=== PATIENT | male | born 1960 | race Caucasian/White ===

== ENCOUNTER 2019-10-23 16:03 | Emergency (ER) | payer BC, SELFPAY ==
[2019-10-23 16:05] VITALS: BP 150/77; PULSE 85; RESP 14; TEMP 36.8; O2SAT 97; BMI 38.7
[2019-10-23 16:20] VITALS: BP 150/77; PULSE 85; RESP 14; TEMP 36.9; O2SAT 97; BMI 39.1
--- NOTE | 2019-10-23 16:20 | XR_ITS ---
PROCEDURE: XR FOOT LT MIN 3V CLINICAL INDICATION: fall COMPARISON: No exams were available for comparison Only 2 films were obtained AP and oblique FINDINGS: No fracture or dislocation. No lytic or blastic change. There is normal mineralization. There is minimal cortical irregularity or spurring of the navicular bone. The joint spaces are well-preserved. No significant degenerative/arthritic changes. No erosive changes evident. Other findings:None. IMPRESSION: No acute findings. Dictated by: Dr. Daniel Bullard MD 10/23/2019 16:59 Dr. Daniel Bullard MD in [place] 10/23/2019 16:59
--- NOTE | 2019-10-23 16:21 | XR_ITS ---
PROCEDURE: XR RIBS LT MIN 3V W CXR1V CLINICAL INDICATION: fall left chest wall pain COMPARISON: No exams were available for comparison FINDINGS: The lung mack are well-expanded and appear clear of infiltrate. All of the left ribs 1 through 12 are visualized and appear intact with no evidence of recent or old fracture. There is no pneumothorax. Cardiac size is normal and there is no pulmonary congestion. IMPRESSION: Negative PA chest and left ribs Dictated by: Dr. Daniel Bullard MD 10/23/2019 16:57 Dr. Daniel Bullard MD in [place] 10/23/2019 16:57
--- NOTE | 2019-10-23 16:28 | HMH.EDUTC ---
[facility] [place] [facility] Disposition Clinical Impression: Contusion of rib on left side Qualifiers: Encounter type: initial encounter Qualified Code(s): S20.212A - Contusion of left front wall of thorax, initial encounter Injury of great toe Qualifiers: Encounter type: initial encounter Laterality: left Qualified Code(s): S99.922A - Unspecified injury of left foot, initial encounter Disposition: Home, Self-Care Condition on Discharge: Good Instructions: DI for Rib Contusion, DI for Toe Sprain Additional Instructions: *Ibuprofen darlene 6 hours with meal as needed for pain/inflammation *Remember you had a Toradol shot in the clinic today, which is similar to Motrin *Not additional anti-inflammatory like motrin, aleve, advil with the above amount of ibuprofen. You can still take Tylenol every 4 hours as needed if you need something else for pain *Ice 20 minutes every 2 hours for the first 48 hours after the initial injury followed by moist heat every 20 minutes 3-4 times a day to affected area *Muscle relaxer every 8 hours as needed for muscle spasms but remember, it WILL cause drowsiness You cannot take it and drive, operate machinery or care for small children. *Keep this area active, no movement leads to more stiffness, However take it easy and avoid heavy lifting pushing or pulling *Follow up with you family doctor if no improvement for further treatment Soak foot in warm water and epson salt then apply Bacitracin around nail Follow up with Dr Rosario if no improvement or any worsening of symptoms or pressure feeling in toe Follow up with Family Doctor if no improvement or any worsening of symptoms Return if needed Straight to ER if life threatening symptoms shortness of breath, chest pain etc Prescriptions: Bacitracin 1 each TP TID 10 Days #30 packet Prescription Printed Referrals: Sammy Biggs APRN [Primary Care Provider] - As needed Jessica Rosario DPM [Staff Physician] - Time of Disposition: 17:16 Medical Decision Making - Celio Inquiry Pt receiving controlled substance: No Celio was queried for this patient: No Vital Signs: 10/23/19 16:05 10/23/19 16:20 Temperature 98.2 F 98.4 F Temperature Source Oral Oral Pulse Rate [Radial] 85 Pulse Rate [Right Radial] 85 Respiratory Rate 14 14 Blood Pressure [Right Arm] 150/77 H 150/77 H Blood Pressure Mean [Right Arm] 101 101 Blood Pressure Source [Right Arm] Automatic Cuff Automatic Cuff Blood Pressure Position [Right Arm] Sitting Sitting 02 Sat by Pulse Oximetry 97 97 Oxygen Delivery Method Room Air Room Air [facility] HPI - General Stated complaint: AO [id number]@0500 fell injured l side&foot Time Seen by Provider: 10/23/19 16:28 Mode of Arrival: Ambulatory Source of Information: Patient Limitations: No Limitations Description of Symptoms (Recalled from Triage Doc. by RN): Fell up one step and hurt his left foot and left rib cage. HEENT Symptoms (Recalled from RN notes): No Resp Symptoms (Recalled from RN notes): No Skin Symptoms (Recalled from RN notes): No MS Symptoms (Recalled from RN notes): Yes Functional Status (Recalled from RN notes): wnl - History of Present Illness Provider Complaint: Patient states that he was walking up the steps earlier this morning when he didnt raise his foot high enough and hit it against the step and fell States that as he was falling he thought he was going to hit his face so he twisted his body and landed on his left side Statse that ever since he has been having pain in his left rib area that has continued to get worse States that this evening he feels more sore so he come in - Related Data Previous Rx's Medication Instructions Recorded Bacitracin 1 each TP TID 10 Days #30 packet 10/23/19 Allergies Allergy/AdvReac Type Severity Reaction Status Date / Time No Known Allergies Allergy Verified 10/23/19 16:24 - Worker's Comp Is this a Worker's Comp case?: No [facility] History - Hepatitis A Screen Drug use history?: No High risk sexua
[2019-10-23 17:20] VITALS: BP 150/77; PULSE 85; RESP 14; TEMP 36.9; O2SAT 97
== END 2019-10-23 17:21 | disposition home or self-care (01) ==
PROVIDERS: Emergency Provider Nurse Practitioner; PCP Nurse Practitioner
DX: S20.212A Contusion of left front wall of thorax, initial encounter (principal); S99.922A Unspecified injury of left foot, initial encounter; W10.9XXA Fall (on) (from) unspecified stairs and steps, initial encounter; Y92.019 Unspecified place in single-family (private) house as the place of occurrence of the external cause
CPT/HCPCS: 71101; 73630; 99201

== ENCOUNTER 2022-12-04 12:00 | Emergency (ER) | payer OTHER, SELFPAY ==
--- NOTE | 2022-12-04 11:59 | ECG_ITS ---
APPROVED REPORT Exam: Resting ECG HR:78 bpm ECG Measurements Heart Rate 78 AXES NC 166 P 59 QRSd 87 QRS -12 QT 360 T 24 QTc 393 Conclusion SINUS RHYTHM SEPTAL MYOCARDIAL INFARCTION , PROBABLY OLD [40+ ms Q WAVE IN V1/V2] INFERIOR MYOCARDIAL INFARCTION , PROBABLY OLD [40+ ms Q WAVE AND/OR ST/T ABNORMALITY IN II/aVF] ABNORMAL ECG UNCONFIRMED REPORT Electronically signed by : Cem Uribe MD 12/05/2022 14:29:49
[2022-12-04 12:01] VITALS: BP 174/90; PULSE 82; RESP 18; TEMP 36.7; O2SAT 98; BMI 36.9
[2022-12-04 12:05] VITALS: BMI 36.9
--- NOTE | 2022-12-04 12:05 | XR_ITS ---
FINAL REPORT TECHNIQUE: Single view chest CLINICAL HISTORY: chest pain, SOA FINDINGS: A single view of the chest was obtained. The heart and mediastinum are within normal limits. The lungs are clear. There is no pneumothorax. Osseous structures are unremarkable. IMPRESSION: No acute cardiopulmonary process. Reviewed, Interpreted and Dictated by Scott Felix III, MD Transcribed by Seema Tran Authenticated and [facility]
[2022-12-04 12:20] LABS: Chloride 101 mmol/L (98-107); Potassium 3.9 mmoL/L (3.5-5.1); Sodium 137 mmol/L (136-145)
[2022-12-04 12:21] LABS: Basophils % 0.4 % (0.1-2.0); Eosinophils # 0.2 K/mm3 (0.0-0.4); Hematocrit 47.5 % (42.0-52.0); Hemoglobin 16.7 g/dL (14.1-18.0); Lymphocytes # 2.8 K/mm3 (0.7-4.5); Lymphocytes % 33.1 % (10-50); Mean Corpuscular HGB Conc 35.1 g/dL (31.8-35.4); Mean Corpuscular Hemoglobin 32.6 pg (27.0-31.2); Mean Corpuscular Volume 92.9 fl (80-94); Mean Platelet Volume 8.2 fl (7.4-10.4); Monocytes # 0.4 K/mm3 (0.1-1.0); Neutrophils # 5.1 K/mm3 (1.8-7.8); Neutrophils % 59.4 % (37.0-80.0); Platelet Count 238 K/mm3 (142-424); Red Blood Count 5.12 M/mm3 (4.60-6.20); Red Cell Distribution Width 14.2 % (11.5-17.5); White Blood Count 8.6 K/mm3 (4.8-10.8)
[2022-12-04 12:23] LABS: Alanine Aminotransferase 38 U/L (12-78); Albumin Level 4.5 g/dl (3.5-5.0); Albumin/Globulin Ratio 1.5 (1.1-1.8); Alkaline Phosphatase 113 U/L (38-126); Anion Gap 12.9 mEq/L (5-15); Aspartate Amino Transferase 33 U/L (17-59); Bilirubin,Total 0.3 mg/dl (0.2-1.3); Blood Urea Nitrogen 23 mg/dl (9-20); Calcium 8.8 mg/dl (8.4-10.2); Carbon Dioxide 27 mmol/L (22.0-30.0); Creatinine Clearance Estimated 123 mL/min (50-200); Estimated Glomerular Filt Rate 98 ml/min (>60); GFR (African American) 119 ML/MIN (>60); Globulin 3.1 g/dL (1.3-3.2); Glucose 174 mg/dl (74-100); Total Protein,Serum 7.6 g/dl (6.3-8.2)
--- NOTE | 2022-12-04 12:23 | CT_ITS ---
FINAL REPORT CLINICAL HISTORY: h/o PTE, left pleuritic cp FINDINGS: Thin section axial CT images of the chest were obtained with contrast. 3D reformatted images were also obtained. This study was performed with techniques to keep radiation doses as low as reasonably achievable (ALARA). Individualized dose reduction techniques using automated exposure control or adjustment of mA and/or kV according to the patient''s size were employed. There is no evidence of pulmonary embolism. There is no evidence of thoracic aortic aneurysm or dissection. There is no evidence of mediastinal or hilar mass or adenopathy. There is no evidence of pulmonary mass or nodule. No localized inflammatory process is seen within the lungs. Limited images of the upper abdomen are unremarkable. IMPRESSION: No evidence of pulmonary embolism. No mass or localized inflammatory process. Reviewed, Interpreted and Dictated by Scott Felix III, MD Transcribed by Paradise Yin Authenticated and . [facility]
--- NOTE | 2022-12-04 12:24 | HMH.EDGENADL ---
Discharge Plan Disposition Patient Disposition: Home, Self-Care Prescriptions Prescriptions: No Action peg 3350-electrolytes [GaviLyte-C] 240-22.72-6.72 -5.84 gram recon soln 240 ml PO Q10M Qty: 240 0RF Rx Instructions: until fecal effluent is clear- follow mailed instructions GaviLyte-C 240-22.72-6.72 -5.84 gram recon soln 240 ml PO Q10M Qty: 240 0RF Rx Instructions: until fecal effluent is clear bacitracin 1 EACH packet 1 each TP TID 10 Days Qty: 30 0RF Activity Restrictions/Add. Instructions Additional Instructions/Restrictions: No evidence of any acute cardiopulmonary emergency specifically no evidence of a blood clot in your lungs malignancy etc. Please help the primary care doctor return to the emergency department any worsening symptoms. Clinical Impressions Clinical Impression: Chest pain, pleuritic Discharge ED Provider: Leroy Kothari General Adult HPI General Chief complaint: Chest Pain Stated complaint: chest pain Time Seen by Provider: 12/04/22 12:17 Mode of Arrival: Ambulatory Source of Information: Patient Limitations: No Limitations Description of Symptoms (Recalled from ER Triage Doc. by RN): Pt reports became SOA today after work, pt reports painful under L arm and down L side. Pt reports tender to the touch. Pt reports pain is chest with inspiration. Pt reports hx of PE, on xarelto. History of Present Illness HPI narrative: Patient is a 62-year-old male with a history of a pulmonary embolism on Xarelto presenting today with left-sided pleuritic chest pain that he says is very similar to when he was first diagnosed with a PE. Denies any new or different lower extremity swelling. Denies any cough fevers or chills. Denies any rash that he is aware of. This has been ongoing for the last week but suddenly worsened today. No hemoptysis. Has been compliant with his Xarelto has not missed any doses. Also complains of mild dyspnea associate with this. Related Data Previous Rx's Medication Instructions Recorded bacitracin 500 unit/gram topical 1 each TP TID 10 days #30 packets 10/23/19 packet peg 3350 240 gram-electrolytes 240 ml PO Q10M #240 mL 12/04/21 22.72 gram-6.72 g-5.84 g powdr for soln (Gavilyte-C) peg 3350 240 gram-electrolytes 240 ml PO Q10M #240 mL 02/05/22 22.72 gram-6.72 g-5.84 g powdr for soln (Gavilyte-C) Allergies Allergy/AdvReac Type Severity Reaction Status Date / Time No Known Allergies Allergy Verified 10/23/19 16:24 PFSH PFS Disclaimer: The information contained in this section may have been updated after the patient was seen, as this information can be updated by other users. Medical History Deep vein thrombosis (DVT) Diabetes mellitus, type 2 Hyperlipidemia Hypertension Surgical History History of surgical removal of nipple Family History Other Family history of arteriosclerotic cardiovascular disease Family history of diabetes mellitus type II Family history of hypertension Social History Smoking Status: Never smoker alcohol intake: never substance use type: denies use current occupational status: employed Travel in the last 8 weeks: None special priscila needs: No agree to transfusion: No do you feel safe at home: Yes victim of physical abuse: No victim of emotional abuse: No victim of sexual abuse: No would you like helpful sources: No ROS Obtained: Yes All systems reviewed & no additional complaints except as documented Physical Exam General General appearance: alert Chest Chest inspection: Present tenderness (There is left-sided tenderness on his chest wall there is no evidence of any rash specifically no evidence of shingles) Respiratory Respiratory exam: P
[2022-12-04 12:30] VITALS: BP 151/82; PULSE 72; RESP 18; O2SAT 96
[2022-12-04 12:36] LABS: Troponin I < 0.01 ng/ml (0.00-0.034)
[2022-12-04 12:46] LABS: Lipase 54 U/L (23-300)
--- NOTE | 2022-12-04 12:48 | PC.NURSE ---
Assumed patient care at this time.
--- NOTE | 2022-12-04 12:53 | PC.NURSE ---
Pt to CT
[2022-12-04 13:30] VITALS: BP 137/82; PULSE 62; RESP 18; O2SAT 98
[2022-12-04 13:46] LABS: Microscopic, Urine URINE MICROSCOPIC (MICROSCOPIC)
--- NOTE | 2022-12-04 13:47 | PC.NURSE ---
Rounded on patient and updated on plan of care; patient stated he felt like his blood sugar was dropping. OK for PO. [place] juice and peanut butter cracker provided to patient as well as warm blanket. Lights dimmed nothing else needed at this time. Call light within reach of patient
[2022-12-04 13:59] LABS: Appearance,Urine CLEAR (Clear); Bilirubin,Urine Negative (Negative); Blood, Urine TRACE-I (Negative); Color,Urine YELLOW (Yellow); Glucose,Urine (UA) 3+ (Negative); Ketones,Urine Negative (Negative); Leukocyte Esterase,Urine Negative (Negative); Nitrate,Urine Negative (Negative); Protein,Urine Negative (Negative); Urobilinogen,Urine 0.2 EU/dl (0.2)
[2022-12-04 14:00] VITALS: BP 157/85; PULSE 64; O2SAT 95
[2022-12-04 14:13] LABS: Squamous Epithelial Cell,Urine Occasional #/hpf (0-5)
[2022-12-04 14:17] VITALS: BP 157/85; PULSE 66; RESP 18; TEMP 36.6; O2SAT 99
== END 2022-12-04 14:20 | disposition home or self-care (01) ==
PROVIDERS: Emergency Provider Student in an Organized Health Care Education/Training Program; PCP Family Medicine
DX: R07.81 Pleurodynia (principal); E11.65 Type 2 diabetes mellitus with hyperglycemia; I10 Essential (primary) hypertension; E78.5 Hyperlipidemia, unspecified; Z86.718 Personal history of other venous thrombosis and embolism; Z79.01 Long term (current) use of anticoagulants
CPT/HCPCS: 71045; 71275; 80053; 81001; 83690; 84484; 85025; 93005; 96361; 96374; 99285; Q9967

== ENCOUNTER 2024-04-02 10:52 | Emergency (ER) | payer OTHER, SELFPAY ==
[2024-04-02 10:54] VITALS: BP 136/87; PULSE 87; RESP 19; TEMP 36.6; O2SAT 99; BMI 30.4
[2024-04-02 10:56] VITALS: BP 136/87; PULSE 87; O2SAT 99
[2024-04-02 11:00] VITALS: BP 120/83; PULSE 79; O2SAT 100
--- NOTE | 2024-04-02 11:07 | PC.NURSE ---
I rounded on the pt. no needs voiced. no new complaints. call scott in reach.
--- NOTE | 2024-04-02 11:14 | XR_ITS ---
PROCEDURE INFORMATION: Exam: XR Right Hand Exam date and time: 04/02/2024 11:18 AM Age: 63 years old Clinical indication: Swelling; Hand; Right; Additional info: Right fifth digit swelling TECHNIQUE: Imaging protocol: Radiologic exam of the right hand. Views: 3 or more views. Total images: 3 COMPARISON: No relevant prior studies available. FINDINGS: Bones/joints: Hypertrophic spurring noted and joint space narrowing along the proximal interphalangeal joint of the 5th finger with overlying soft tissue swelling. No evidence of acute fracture or dislocation. Soft tissues: No soft tissue swelling IMPRESSION: 1. Hypertrophic spurring noted and joint space narrowing along the proximal interphalangeal joint of the 5th finger with overlying soft tissue swelling. 2. No evidence of acute fracture or dislocation.
--- NOTE | 2024-04-02 11:15 | HMH.EDGENADL ---
Discharge Plan Disposition Patient Disposition: Home, Self-Care Prescriptions Prescriptions: New cephalexin 500 mg capsule 500 mg PO QID 10 Days Qty: 40 0RF No Action peg 3350-electrolytes [GaviLyte-C] 240-22.72-6.72 -5.84 gram recon soln 240 ml PO Q10M Qty: 240 0RF Rx Instructions: until fecal effluent is clear- follow mailed instructions GaviLyte-C 240-22.72-6.72 -5.84 gram recon soln 240 ml PO Q10M Qty: 240 0RF Rx Instructions: until fecal effluent is clear bacitracin 1 EACH packet 1 each TP TID 10 Days Qty: 30 0RF Referrals Follow up/Referrals: Provider,Referral, MD [Primary Care Provider] - See instructions Activity Restrictions/Add. Instructions Additional Instructions/Restrictions: As discussed there is no evidence of flexor tenosynovitis nor felon/abscess within the finger itself. Please follow-up with your primary care doctor in 48 to 72 hours if you are not improving or return with any significant worsening. Clinical Impressions Clinical Impression: Cellulitis of left little finger Print Language Print Language: Congolese Discharge ED Provider: Leroy Kothari General Adult HPI General Chief complaint: PAIN Stated complaint: right pinky pos broke Time Seen by Provider: 04/02/24 11:10 Mode of Arrival: Ambulatory Source of Information: Patient Limitations: No Limitations Description of Symptoms (Recalled from ER Triage Doc. by RN): pt presents to ED with c/o right hand fourth digit. pt reports he has no known injury that he knows about. pt reports for the past 5-6 days. pt reports pain and swelling have moved into his hand. History of Present Illness HPI narrative: Patient is a 63-year-old with a history of diabetes brings today with right fifth digit hand swelling and pain and redness. Is been ongoing for the last 5 days. No injuries that he is aware of no skin breaks in the past. No fevers or chills or other systemic symptoms. Related Data Previous Rx's ?Medication ?Instructions ?Recorded bacitracin 500 unit/gram topical 1 each TP TID 10 days #30 packets 10/23/19 packet peg 3350 240 gram-electrolytes 240 ml PO Q10M #240 mL 12/04/21 22.72 gram-6.72 g-5.84 g powdr for soln (Gavilyte-C) peg 3350 240 gram-electrolytes 240 ml PO Q10M #240 mL 02/05/22 22.72 gram-6.72 g-5.84 g powdr for soln (Gavilyte-C) cephalexin 500 mg capsule 500 mg PO QID 10 days #40 caps 04/02/24 Allergies Allergy/AdvReac Type Severity Reaction Status Date / Time No Known Allergies Allergy Verified 10/23/19 16:24 [facility] Disclaimer: The information contained in this section may have been updated after the patient was seen, as this information can be updated by other users. Medical History Deep vein thrombosis (DVT) Diabetes mellitus, type 2 Hyperlipidemia Hypertension Surgical History History of surgical removal of nipple Family History Other Family history of arteriosclerotic cardiovascular disease Family history of diabetes mellitus type II Family history of hypertension Social History Smoking Status: Never smoker alcohol intake: never substance use type: denies use current occupational status: employed Travel in the last 8 weeks: None special priscila needs: No agree to transfusion: No do you feel safe at home: Yes victim of physical abuse: No victim of emotional abuse: No victim of sexual abuse: No would you like helpful sources: No Have you lived/traveled outside [place] in past 30 days?: No Contact w/someone who lives/traveled outside US past 30 days?: No Exposure to someone with infectious disease in past 14 days?: No Do you have a fever (greater than 100.4 F or 38 C)?: No Have you tested positive for COVID-19: No Exposed to someone with COVID-19 in past 14 days?: No Do you have a sore throat?: No Do you have a cough?: No Do you have any weakness?: No Do you have any diarrhea?: No Are you experiencing any unusual bleeding?: No Do you have any muscle aches/pain?: No Do you have any abdominal pain?: No Are you experiencing loss of taste or smell?: No ROS Obtained: Yes All systems reviewed & no additional complaints except as documented Physical Exam General General appearance: alert Respiratory Respiratory exam: Present normal lung sounds bilaterally Cardiovascular Cardiovascular exam: Present regular rate Extremities Exam Extremities exam: Present other (Volar aspect of the right fifth digit there is tenderness and swelling over the volar fat pad extending into the flexor surface down to the hand finger is not diffusely swollen no significant pain with active extension no sausagelike digit) Neurological Exam Neurological exam: Present alert and oriented X3 Medical Decision Making Medical Records Screening: Per USPSTF and CDC recommendations, given the prevalence of disease in our region, it is our hospital?s policy to screen for HIV and viral Hepatitis for all patients aged 18 and over and those with ongoing risk factors. Celio Inquiry Pt receiving controlled substance: No Vital Signs: 04/02/24 10:54 04/02/24 10:56 04/02/24 11:00 Temperature 97.9 F Temperature Source Oral Pulse Rate 87 79 Pulse Rate [Left Radial] 87 Respiratory Rate 19 Blood Pressure 136/87 120/83 Blood Pressure [Right Arm] 136/87 Blood Pressure Mean 102 95 Blood Pressure Mean [Right Arm] 103 02 Sat by Pulse Oximetry 99 99 100 Oxygen Delivery Method Room Air Room Air Room Air 04/02/24 11:30 Temperature Temperature Source Pulse Rate 79 Pulse Rate [Left Radial] Respiratory Rate Blood Pressure 113/78 Blood Pressure [Right Arm] Blood Pressure Mean 88 Blood Pressure Mean [Right Arm] 02 Sat by Pulse Oximetry 99 Oxygen Delivery Method Room Air Orders (Tests/Meds): ORDERS Category Date Time Status Hand XR right minimum 3 views [XR hand RT min 3V] Stat Exams 04/02/24 11:14 Completed POCUS Point of Care (ER Only) Stat Exams 04/02/24 11:14 Ordered HIV Combo Stat Lab 04/02/24 11:03 Ordered Hepatitis C Ab Qual. W/ RFX Stat Lab 04/02/24 11:03 Ordered Medical Decision Narrative: 63-year-old with above history and physical has had 5 to 6 days of nontraumatic pain and swelling redness and tenderness over the volar aspect of the right fifth digit. Will do a bedside ultrasound to rule out obvious abscess. It is possible that the patient has early flexor tenosynovitis but unlikely. Patient has 0 out of 4 [place] signs no indication for transfer for hand surgery at the moment. Likely will start oral antibiotics depending on what I see on x-ray on ultrasound. Limited ultrasound of the finger did not show any evidence of flexor tenosynovitis or localize drainable fluid collection. X-ray was performed I personally interpreted which shows no evidence of fracture dislocation or advanced osteomyelitis. Therefore we will treat this as nonspecific cellulitis with Keflex. Return precautions emphasized patient discharged in stable condition. Procedures Miscellaneous Procedure Procedure Performed: Limited soft tissue ultrasound Indication: Soft tissue swelling and tenderness over the finger Identified structures: Location: Right fifth digit Findings: No evidence of felon fluid collection within the flexor tendon sheath however there is evidence of soft tissue cobblestoning and cellulitis Impression: Cellulitis of the finger on the volar aspect without any evidence of localized drainable fluid collection or flexor tenosynovitis radiographically Images were saved to permanent archive The study was technically adequate Soft Tissue CPT Codes: CPT Neck: 56115-92 CPT Upper extremity: 34005-53 CPT Axilla: 68971-89 CPT Chest wall: 83660-04 CPT Breast: 46881-62-RJ/LT (complete), 98840-34-RD/LT (limited), CPT Upper Back: 83851-15 CPT Lower Back: 75235-23 CPT Abdominal Wall: 21090-54 CPT Pelvic Wall: 09471-25 CPT Lower Extremity: 96664-65 CPT Other Soft Tissue: 80054-74 This study was performed by me, and I personally interpreted all images/videos. Based on my clinical judgement, these images were adequate and did not necessitate further imaging. Critical Care Critical Care Time Critical Care Time: No
[2024-04-02 11:30] VITALS: BP 113/78; PULSE 79; O2SAT 99
[2024-04-02 12:19] VITALS: BP 113/78; PULSE 79; RESP 18; TEMP 36.6; O2SAT 99
== END 2024-04-02 12:20 | disposition home or self-care (01) ==
PROVIDERS: Emergency Provider Student in an Organized Health Care Education/Training Program
DX: L03.011 Cellulitis of right finger (principal); M79.641 Pain in right hand; M79.644 Pain in right finger(s)
CPT/HCPCS: 73130; 99283

== ENCOUNTER 2024-10-02 15:52 | Emergency (ER) | payer OTHER, SELFPAY ==
--- OUTSIDE RECORDS SUMMARY | 2024-08-29 14:30 | XMS_ITS | Encounter Summary ---
Author Organization [facility] Address [address] [place] [address] Care Team Providers Care Helicopter Repairer Name Role Phone Mohit Chávez DO Primary Care Provider [phone] Reason for Referral * Other Medical (Routine) - Pending Review Specialty Diagnoses / Procedures Referred By Contac t Referred To Contact Diagnoses Primary osteoarthritis of left knee Primary osteoarthritis of right knee Procedures Injection - Large Joint: bilateral knee Vasu Yanez PA [address] [place] [address] Phone: tel: fax: Referral ID Status Reason Start Date Expiration Date V isits Requested Visits Authorized [id number] Pending Review 08/29/2024 02/28/2026 1 1 Reason for Visit * Reason Comments Injections Injections Encounter Details Date Type Department Care Team (Latest Contact Info) Description 08/29/2024 2:30 PM EDT Office Visit Medical Office Building [facility] [address], [address] [place] [address] Vasu Yanez PA [address] [place] [address] Primary osteoarthritis of left knee (Primary Dx); Primary osteoarthritis of right knee Social History Tobacco Use Types Packs/Day Years Used Date Smoking Tobacco: Never Smokeless Tobacco: Never Tobacco Cessation:Counseling Given: Not Answered Alcohol Use Standard Drinks/Week Comments Never 0 (1 standard drink = 0.6 oz pur e alcohol) Sex and Gender Information Value Date Recorded Sex Assigned at Not on file Legal Sex Male 6:25 PM EDT Gender Identity Not on file Sexual Orientation Not on file documented as of this encounter Last Filed Vital Signs Vital Sign Reading Time Taken Comments Blood Pressure 124/78 08/29/2024 2:02 PM EDT Pulse 75 08/29/2024 2:02 PM EDT Temperature - - Respiratory Rate - - Oxygen Saturation 98% 08/29/2024 2:02 PM EDT Inhaled Oxygen Concentration - - Weight 99.1 kg (218 lb 7.6 oz) 08/29/2024 2:02 P M EDT Height 175.3 cm (5' 9 ) 08/29/2024 2:02 PM EDT Body Mass Index 32.26 08/29/2024 2:02 PM EDT documented in this encounter Miscellaneous Notes * Progress Notes - Vasu Yanez PA - 08/29/2024 2:30 PM EDTAssociated Order(s): Injection - Large Joint: bilateral knee Post-Procedure Diagnose(s): Primary osteoarthritis of left knee; Primary osteoarthritis of right knee Patient ID: Arun Ramon is a 64 y.o. male. No diagnosis found. The patient was scheduled for total knee arthroplasty but he has had to delay this secondary to a family medical issue. He requested corticosteroid injections bilateral knees this was provided under sterile conditions without complications injecting 2:2: 1 secondary to his diabetes. He will call and be scheduled for total knee arthroplasty when it fits into his schedule. Injection - Large Joint: bilateral knee Indications: pain Details: 22 G needle, anteromedial approach Medications (Right): 10 mg bupivacaine 0.5 %; 20 mg lidocaine 1 %; 40 mg Kenalog-40 40 MG/ML Medications (Left): 10 mg bupivacaine 0.5 %; 20 mg lidocaine 1 %; 40 mg Kenalog- 40 40 MG/ML Outcome: tolerated well, no immediate complications Procedure, treatment alternatives, risks and benefits explained, specific risks discussed (Risks include but are not limited to pain, bleeding, infection, failure to relieve symptoms). Consent was given by the patient. Immediately prior to procedure a time out was called to verify the correct patient, procedure, equipment, customer support advisor and site/side marked as required. Patient was prepped and draped in the usual sterile fashion. Procedure, treatment alternatives, risks and benefits explained, specific risks discussed (Risks include but are not limited to pain, bleeding, infection, failure to relieve symptoms). Consent was given by the patient. Immediately prior to procedure a time out was called to verify the correct patient, procedure, equipment, customer support advisor and site/side marked as required. Patient was prepped and draped in the usual sterile fashion. documented in this encounter Plan of Treatment Upcoming Encounters Date Type Department Care Team (Late st Contact Info) Description 11/25/2024 10:10 AM EDT Office Visit Medical Office Building [facility] [address] [facility] [address], [address] [place] [address] Vasu Yanez PA [address] [facility] [address] [place] [address] 03/22/2025 3:40 PM EST Office Visit [facility] Endocrinology [address] [place] [address] Delicia Miner, PERIANESTHESIA MANAGER [address] [facility] [address] [place] [address] documented as of this encounter Procedures Procedure Name Priority Date/Time Associated Diagnosis Comments TN ARTHROCENTESIS ASPIR&/INJ MAJOR JT/BURSA W/O US Routine 08/29/2024 2:30 PM EDT Primary osteoarthritis of left knee Primary osteoarthritis of right knee documented in this encounter Results * TN ARTHROCENTESIS ASPIR&/INJ MAJOR JT/BURSA W/O US (08/29/2024 2:30 PM EDT) Narrative Vasu Yanez PA - 08/29/2024 2:30 PM EDT Vasu Yanez PA 08/29/2024 2:33 PM Injection - Large Joint: bilateral knee Indications: pain Details: 22 G needle, anteromedial approach Medications (Right): 10 mg bupivacaine 0.5 %; 20 mg lidocaine 1 %; 40 mg Kenalog-40 40 MG/ML Medications (Left): 10 mg bupivacaine 0.5 %; 20 mg lidocaine 1 %; 40 mg Kenalog-40 40 MG/ML Outcome: tolerated well, no immediate complications Procedure, treatment alternatives, risks and benefits explained, specific risks discussed (Risks include but are not limited to pain, bleeding, infection, failure to relieve symptoms). Consent was given by the patient. Immediately prior to procedure a time out was called to verify the correct patient, procedure, equipment, customer support advisor and site/side marked as required. Patient was prepped and draped in the usual sterile fashion. Procedure, treatment alternatives, risks and benefits explained, specific risks discussed (Risks include but are not limited to pain, bleeding, infection, failure to relieve symptoms). Consent was given by the patient. Immediately prior to procedure a time out was called to verify the correct patient, procedure, equipment, customer support advisor and site/side marked as required. Patient was prepped and draped in the usual sterile fashion. Vasu [facility] IN CLINIC/BEDSIDE ORDERABLES Final Result documented in this encounter Visit Diagnoses Diagnosis Primary osteoarthritis of left knee- Primary Primary osteoarthritis of right knee documented in this encounter Administered Medications Inactive Administered Medications - up to 3 most recent administrations Medication Order MAR Action Action Date Dose Rate Site bupivacaine (Marcaine) 0.5 % injection 10 mg 10 mg, Injection, Once PRN Procedure, 1 dose, Starting on Thu08/29/24 at 1430, Until Thu08/29/24 at 1430, RoutineIndications:Primary osteoarthritis of left knee,Primary osteoarthritis of right knee Given 08/29/2024 2:30 PM EDT 10 mg bupivacaine (Marcaine) 0.5 % injection 10 mg 10 mg, Injection, Once PRN Procedure, 1 dose, Starting on Thu08/29/24 at 1430, Until Thu08/29/24 at 1430, RoutineIndications:Primary osteoarthritis of left knee,Primary osteoarthritis of right knee Given 08/29/2024 2:30 PM EDT 10 mg lidocaine (Xylocaine) 1 % injection 20 mg 20 mg, Intra-articular, Once PRN Procedure, 1 dose, Starting on Thu08/29/24 at 1430, Until Thu08/29/24 at 1430, RoutineIndications:Primary osteoarthritis of left knee,Primary osteoarthritis of right knee Given 08/29/2024 2:30 PM EDT 20 mg lidocaine (Xylocaine) 1 % injection 20 mg 20 mg, Intra-articular, Once PRN Procedure, 1 dose, Starting on Thu08/29/24 at 1430, Until Thu08/29/24 at 1430, RoutineIndications:Primary osteoarthritis of left knee,Primary osteoarthritis of right knee Given 08/29/2024 2:30 PM EDT 20 mg triamcinolone acetonide (Kenalog-40) injection 40 mg 40 mg, Intra-articular, Once PRN Procedure, 1 dose, Starting on Thu08/29/24 at 1430, Until Thu08/29/24 at 1430, RoutineIndications:Primary osteoarthritis of left knee,Primary osteoarthritis of right knee Given 08/29/2024 2:30 PM EDT 40 mg triamcinolone acetonide (Kenalog-40) injection 40 mg 40 mg, Intra-articular, Once PRN Procedure, 1 dose, Starting on Thu08/29/24 at 1430, Until Thu08/29/24 at 1430, RoutineIndications:Primary osteoarthritis of left knee,Primary osteoarthritis of right knee Given 08/29/2024 2:30 PM EDT 40 mg documented in this encounter Additional Health Concerns Assessment Noted Time A fall risk assessment has been complete d for the patient 08/29/2024 2:03 PM EDT A Body Mass Index follow-up plan has been documented for the patient 08/29/2024 2:33 PM EDT documented as of this encounter Care Teams Helicopter Repairer Relationship Specialty Start Date [place] [address] [place] [id number] PCP - General 06/06/24 documented as of this encounter
--- OUTSIDE RECORDS SUMMARY | 2024-09-19 15:40 | XMS_ITS | Encounter Summary ---
Author Organization [facility] Address [address] [place] [address] Care Team Providers Care Fence Supervisor Name Role Phone Mohit Chávez DO Primary Care Provider [phone] Reason for Referral * Consultation (Routine) - Authorized Specialty Diagnoses / Procedures Referred By Contac t Referred To Contact Diagnoses Type 2 diabetes mellitus with hyperglycemia, with long-term current use of insulin ([facility]) Delicia Miner APRN [address] [address] Phone: tel: fax: Referral ID Status Reason Start Date Expiration Date V isits Requested Visits Authorized [id number] Authorized 09/19/2024 03/21/2026 1 1 Reason for Visit * Reason Comments Diabetes Encounter Details Date Type Department Care Team (Late st Contact Info) Description 09/19/2024 3:40 PM EDT Office Visit [facility] Endocrinology [address] [place] [address] Delicia Miner APRN [address] [facility] [address] [place] [address] Type 2 diabetes mellitus without [...] original note were not included. Subjective Arun Ramon is a 64 y.o. male who presents [...] care. Electronically signed by: Delicia Miner APRN [facility] [address] [facility] [address] [place]. [address] PHONE [phone] FAX: [phone] documented in this encounter Plan of Treatment Upcoming Encounters Date Type Department Care Team ([facility] st Contact Info) Description 11/25/2024 10:10 AM EDT Office Visit Medical Office Building Surgery [facility] [address] [facility], [address] [place] [address] Vasu Yanez, PA [address] [facility] [address] [place] [address] 03/22/2025 3:40 PM EST Office Visit [facility] Endocrinology [address] [place] [address] Delicia Miner APRN [address] [place] [address] Scheduled Referrals Name Type Priority Associated Diagnoses Orde r Schedule Follow Up [facility] Outpatient Referral Routine Type 2 diabetes mellitus [...] Hemoglobin A1C 6.0 <5.7% Non-Diabet ic % [facility] Kit Lot Number [id number] [facility] Kit Expiration Date 07/15/26 [facility] Blood Venous blood specimen / Unknown 09/19/2024 3:29 PM EDT us Delicia Miner NURSING EDUCATION CONSULTANT POINT OF CARE TEST ENTER/ED IT ORDERABLES Final Result [facility] [address] [place] [address] documented in this encounter Visit Diagnoses Diagnosis [...] documented as of this encounter Care Teams Fence Supervisor Relationship Specialty Start Date End Date Mohit Chávez [place] [address] PCP - General 06/06/24 documented as of this encounter
[2024-10-02 15:56] VITALS: BP 115/70; PULSE 78; RESP 18; TEMP 36.1; O2SAT 98; BMI 30.2
--- NOTE | 2024-10-02 16:02 | ED_ITS ---
Discharge Plan Disposition Patient Disposition: Home, Self-Care Condition: Good Prescriptions Prescriptions: No Action peg 3350-electrolytes [GaviLyte-C] 240-22.72-6.72 -5.84 gram recon soln 240 ml PO Q10M Qty: 240 0RF Rx Instructions: until fecal effluent is clear- follow mailed instructions GaviLyte-C 240-22.72-6.72 -5.84 gram recon soln 240 ml PO Q10M Qty: 240 0RF Rx Instructions: until fecal effluent is clear bacitracin 1 EACH packet 1 each TP TID 10 Days Qty: 30 0RF cephalexin 500 mg capsule 500 mg PO QID 10 Days Qty: 40 0RF Referrals Follow up/Referrals: Provider,Referral, MD [Primary Care Provider, Medical] - See instructions Tra Osman DO [Staff Physician, Orthopedics] - See instructions Clinical Impressions Clinical Impression: Rotator cuff injury Instructions Patient Instructions: Rotator Cuff Injury Print Language Print Language: Hungarian Discharge ED Provider: Roya Judd General Adult HPI General Chief complaint: PAIN Stated complaint: Right arm pain,injury several weeks ago Time Seen by Provider: 10/02/24 16:02 Mode of Arrival: Ambulatory Source of Information: Patient Description of Symptoms (Recalled from ER Triage Doc. by RN): Pt presents with c/o right shoulder pain after falling 6 weeks ago. 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 Pt states he did not have LOC, but is on xarelto History of Present Illness HPI narrative: Patient is a 64-year-old with past medical history significant for history of DVT 8 years ago on Xarelto presents the emergency department with right shoulder pain. 6 weeks ago patient was walking his [place] and was pulled and landed on his right shoulder. Since then he has had decreased range of motion and pain with certain movements of his right shoulder. No swelling of the right upper extremity. No numbness or tingling. Related Data Previous Rx's ?Medication ?Instructions ?Recorded bacitracin 500 unit/gram topical 1 each TP TID 10 days #30 packets 10/23/19 packet peg 3350 240 gram-electrolytes 240 ml PO Q10M #240 mL 12/04/21 22.72 gram-6.72 g-5.84 g powdr for soln (Gavilyte-C) peg 3350 240 gram-electrolytes 240 ml PO Q10M #240 mL 02/05/22 22.72 gram-6.72 g-5.84 g powdr for soln (Gavilyte-C) cephalexin 500 mg capsule 500 mg PO QID 10 days #40 ca ps 04/02/24 Allergies Allergy/AdvReac Type Severity Reaction Status Date / Time No Known Allergies Allergy Verified 10/23/19 16:24 [facility] Disclaimer: The information contained in this section may have been updated after the patient was seen, as this information can be updated by other users. Medical History Deep vein thrombosis (DVT) Diabetes mellitus, type 2 Hyperlipidemia Hypertension Surgical History History of surgical removal of nipple Family History Other Family history of arteriosclerotic cardiovascular disease Family history of diabetes mellitus type II Family history of hypertension Social History Smoking Status: Never smoker alcohol intake: never substance use type: denies use current occupational status: employed Travel in the last 8 weeks?: None special priscila needs: No agree to transfusion: No do you feel safe at home: Yes victim of physical abuse: No victim of emotional abuse: No victim of sexual abuse: No would you like helpful sources: No Have you lived/traveled outside US in past 30 days?: No Contact w/someone who lives/traveled outside US past 30 days?: No Exposure to someone with infectious disease in past 14 days?: No Do you have a fever (greater than 100.4 F or 38 C)?: No Have you tested positive for COVID-19?: No Exposed to someone with COVID-19 in past 14 days?: No Do you have a sore throat?: No Do you have a cough?: No Do you have any weakness?: No Do you have any diarrhea?: No Are you experiencing any unusual bleeding?: No Do you have any muscle aches/pain?: No Do you have any abdominal pain?: No Are you experiencing loss of taste or smell?: No ROS Obtained: Yes All systems reviewed & no additional complaints except as documented Physical Exam General General appearance: alert and in no apparent distress Head Head exam: atraumatic and normocephalic Eye Eye exam: Present PERRL and EOMI ENT ENT exam: Present normal exam Neck Neck exam: Present normal inspection; Absent tenderness Chest Chest inspection: Present normal inspection and symmetric chest wall rise Respiratory Respiratory exam: Absent respiratory distress Cardiovascular Cardiovascular exam: Present regular rate and normal rhythm Abdominal Exam Abdominal exam: Present soft; Absent tenderness Extremities Exam Extremities exam: Present normal inspection, tenderness (Right posterior should er) and other (+ empty can right shoulder); Absent full ROM (Decreased active range of motion right shoulder with abduction), edema or joint swelling Back Exam Back exam: Absent tenderness Neurological Exam Neurological exam: Present alert and oriented X3; Absent motor sensory deficit Medical Decision Making Medical Records Screening: Per USPSTF and CDC recommendations, given the prevalence of disease in [facility], it is our hospital?s policy to screen for HIV and viral Hepatitis for all patients aged 18 and over and those with ongoing risk factors. Celio Inquiry Pt receiving controlled substance: No Vital Signs: 10/02/24 15:56 Temperature 97 F L Temperature Source Oral Pulse Rate [Right] 78 Respiratory Rate 18 Blood Pressure [Right Arm] 115/70 Blood Pressure Mean [Right Arm] 85 Blood Pressure Source [Right Arm] Automatic Cuff Blood Pressure Position [Right Arm] Sitting 02 Sat by Pulse Oximetry 98 Oxygen Delivery Method Room Air Orders (Tests/Meds): ORDERS Category Date Time Status Shoulder XR right miminum 2 views [XR shoulder RT min Exams 10/02/24 16:06 Taken 2V] Stat Medical Decision Narrative: In summary, this 64-year-old male presents to the emergency department today with right shoulder pain. On initial evaluation patient is hemodynamically stable saturating appropriately on room air afebrile no acute distress. Differential diagnosis includes but is not limited to rotator cuff injury, fracture, hematoma, DVT. Based on these concerns, I ordered right shoulder x- ray. Lower concern for DVT based off of physical exam. XR personally interpreted demonstrates calcifications at rotator cuff location concerning for injury, no acute fracture visualized. On reassessment patient's symptoms continue to be stable. Patient is agreeable with outpatient follow-up with orthopedic surgery for possible MRI and outpatient follow-up with PCP for referral to physical therapy. Based on physical exam I have suspicion of rotator cuff injury. Of note, social determinants of health include difficulty access to primary care. Critical Care Critical Care Time Critical Care Time: No
--- OUTSIDE RECORDS SUMMARY | 2024-10-02 16:03 | XMS_ITS | Encounter Summary ---
Author Organization [facility] Address [address] [place] [id number] Care Team Providers Care Merchandise Worker Name Role Phone Lakshmi Chávez DO Primary Care Provider +1- [phone] Reason for Visit * Reason Onset Date Comments Med Refill 09/15/2024 Encounter Details Date Type Department Care Team (Late st Contact Info) Description 09/15/2024 Telephone [facility] [address] [place] [address] Lakshmi Chávez DO [address] [place] [address] Med Refill Social History Tobacco Use Types Packs/Day Years Used Date Smoking Tobacco: Never Passive Smoke Exposure: Never Smokeless Tobacco: Never Alcohol Use Standard Drinks/Week Comments Never 0 (1 standard drink = 0.6 oz pur e alcohol) PHQ-2 Answer Date Recorded Retired PHQ-9: Brief Depression Severity Measure Score 0 03/24/2022 Abuse Screen Answer Date Recorded Feels Unsafe at Home or Work/School no 08/12/2023 Feels Threatened by Someone no 07/18 Does Anyone Try to Keep You From Having Contact with Others or Doing Things Outside Your Home? no 08/12/2023 Physical Signs of Abuse Present no 08/12/2023 PHQ-2 Answer Date Recorded Patient Health Questionnaire-2 Score 0 03/04/2024 Sex and Gender Information Value Date Recorded Sex Assigned at Not on file Legal Sex Male 7:49 PM EDT Gender Identity Not on file Sexual Orientation Not on file documented as of this encounter Progress Notes * Lakshmi Chávez DO - 09/23/2024 4:07 PM EDTAddended by: LAKSHMI CHÁVEZ on: 09/23/2024 04:07 PM Modules accepted: Orders documented in this encounter Miscellaneous Notes * Telephone Encounter - Lakshmi Chávez DO - 09/23/2024 4:07 PM EDT Sent * Telephone Encounter - Sarah Chun MA - 09/15/2024 8:31 AM EDT Note from Pharmacy: Script Clarification, [place] medicaid does not pay for one touch anymore. Please send in script for Accu check. Thanks documented in this encounter Plan of Treatment Upcoming Encounters Date Type Department Care Team (Late st Contact Info) Description 11/01/2024 1:00 PM EDT Office Visit [facility] [address] [place] [address] Lakshmi Chávez DO [address] [place] [address] documented as of this encounter Visit Diagnoses Diagnosis Type 2 diabetes mellitus without complication, with long-term current use of insulin documented in this encounter Care Teams Merchandise Worker Relationship Specialty Start Date End Date Lakshmi Chávez DO [address] [place] [address] PCP - General Family Medicine 03/08/21 documented as of this encounter
--- OUTSIDE RECORDS SUMMARY | 2024-10-02 16:03 | XMS_ITS | Encounter Summary ---
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 Social History Tobacco Use Types Packs/Day Years [...] Present no 08/12/2023 PHQ-2 Answer Date Recorded Retired PHQ-9: Brief Depression Severity Measure Score 0 08/04/2023 Sex and Gender Information Value Date Recorded Sex Assigned at Not on file Legal Sex Male 7:49 PM EDT Gender Identity Not on file Sexual Orientation Not on file documented as of this encounter Plan of Treatment Upcoming Encounters Date Type Department Care Team (Late st Contact Info) Description 11/01/2024 1:00 PM EDT Office Visit [facility] [address] [place] [address] Mohit Chávez DO [address] [place] [address] documented as of this encounter Visit Diagnoses Diagnosis Type 2 diabetes mellitus without complication, 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
--- OUTSIDE RECORDS SUMMARY | 2024-10-02 16:03 | XMS_ITS | Encounter Summary ---
Author Organization [facility] Address [address] [place] [address] Care Team Providers Care Endo Tech Name Role Phone Mohit Chávez DO Primary Care Provider +1- [phone] Reason for Visit * Reason Onset Date Comments Med Refill 09/07/2024 Encounter Details Date Type Department Care Team (Late st Contact Info) Description 09/07/[address] [facility] [address] [place] [address] Mohit Chávez DO [address] [place] [id number] Chronic pain of both knees Social History Tobacco Use Types Packs/Day Years [...] on file documented as of this encounter Miscellaneous Notes * Telephone Encounter - Liliam High RegSched Rep - 09/07/2024 2:43 PM EDT Caller: Arun Ramon Relationship: Self Best call back number: [phone] Requested Prescriptions: Requested Prescriptions Pending Prescriptions Disp Refills traMADol (ULTRAM) 50 MG tablet 150 tablet 2 Sig: Take 1 tablet by mouth 5 (Five) Times a Day As Needed for Moderate Pain. Pharmacy where request should be sent: [id number] - [place], [place] - [address] - [phone] - [phone] FX Last office visit with prescribing clinician: 08/01/2024 Last telemedicine visit with prescribing clinician: Visit date not found Next office visit with prescribing clinician: 11/01/2024 Additional details provided by patient: PATIENT HAS A TWO DAY SUPPLY OF MEDICATION. Does the patient have less than a 3 day supply: [x] Yes [] No Would you like a call back once the refill request has been completed: [] Yes [x] No If the office needs to give you a call back, can they leave a voicemail: [] Yes [x] No Mayra Mehta Rep 09/07/24 14:44 EDT documented in this encounter Plan of Treatment Upcoming Encounters Date Type Department Care Team (Late st Contact Info) Description 11/01/2024 1:00 PM EDT Office Visit [facility] [address] [facility] [place] [id number] Mohit Chávez DO [address] [facility] [place] [address] documented as of this encounter Visit Diagnoses Diagnosis Chronic pain of both knees documented in this encounter Care Teams Endo Tech Relationship Specialty Start Date End Date Mohit Chávez DO [address] [place] [address] PCP - General Family Medicine 03/08/21 documented as of this encounter
--- OUTSIDE RECORDS SUMMARY | 2024-10-02 16:03 | XMS_ITS | Encounter Summary ---
Author Organization [facility] Address [address] [place] [id number] Care Team Providers Care C.O.D. Clerk Name Role Phone Mohit Chávez DO Primary Care Provider +1- [phone] Reason for Visit * Reason Onset Date Comments Med Refill 03/28/2024 Encounter Details Date Type Department Care Team (Late st Contact Info) Description 03/28/2024 Refill [facility] [address] [place] [address] Mohit Chávez DO [address] [place] [id number] Type 2 diabetes mellitus without complication, with long-term current use of insulin Social History Tobacco Use Types Packs/Day Years [...] encounter Miscellaneous Notes * Telephone Encounter - Deb Marie RegSched Rep - 03/28/2024 10:23 AM EST Caller: Arun Ramon Relationship: Self Best call back number: [phone] Requested Prescriptions: Requested Prescriptions Pending Prescriptions Disp Refills Continuous Glucose Sensor (FreeStyle Art 2 Sensor) misc 2 each 2 Sig: Use 1 each Every 14 (Fourteen) Days. Pharmacy where request should be sent: [id number] - [place], [place] - [address] - [phone] - [phone] FX Last office visit with prescribing clinician: 03/04/2024 Last telemedicine visit with prescribing clinician: Visit date not found Next office visit with prescribing clinician: 06/03/2024 Additional details provided by patient: PATIENT IS OUT Does the patient have less than a 3 day supply: [x] Yes [] No Would you like a call back once the refill request has been completed: [] Yes [x] No If the office needs to give you a call back, can they leave a voicemail: [] Yes [x] No Mayra Garcia Rep 03/28/24 10:24 EST documented in this encounter Plan of Treatment Upcoming Encounters Date Type Department Care Team (Late st Contact Info) Description 11/01/2024 1:00 PM EDT Office Visit [facility] [address] [place] [address] Mohit Chávez DO [address] [place] [address] documented as of this encounter Visit Diagnoses Diagnosis Type 2 diabetes mellitus without complication, with long-term current use of insulin documented in this encounter Care Teams C.O.D. Clerk Relationship Specialty Start Date End Date Mohit Chávez DO [address] [place] [address] PCP - General Family Medicine 03/08/21 documented as of this encounter
--- OUTSIDE RECORDS SUMMARY | 2024-10-02 16:03 | XMS_ITS | Encounter Summary ---
Author Organization [facility] Address [address] [place] [address] Care Team Providers Care Load Mixer Name Role Phone Mohit Chávez DO Primary Care Provider +1- [phone] Reason for Visit * Reason Onset Date Comments Med Refill 07/07/2024 Encounter Details Date Type Department Care Team (Late st Contact Info) Description 07/07/2024 Refill [facility] [address] [place] [address] Mohit Chávez DO [address] [place] [id number] Social History Tobacco Use Types Packs/Day Years [...] Miscellaneous Notes * Telephone Encounter - Liliam Martinez RegSched Rep - 07/07/2024 12:42 PM EDT Caller: Arun Ramon Relationship: Self Best call back number: [phone] Requested Prescriptions: Requested Prescriptions Pending Prescriptions Disp Refills chlorthalidone (HYGROTON) 25 MG tablet Sig: Take 0.5 tablets by mouth Daily. Pharmacy where request should be sent: [facility] [phone] Last office visit with prescribing clinician: 07/06/2024 Last telemedicine visit with prescribing clinician: Visit date not found Next office visit with prescribing clinician: Visit date not found Additional details provided by patient: PATIENT STATES THIS MEDICATION AND A LAXATIVE TYPE MEDICATION SHOULD HAVE BEEN SENT TO PHARMACY YESTERDAY HOWEVER THEY DID NOT RECEIVE PRESCRIPTIONS. PLEASE ADVISE Does the patient have less than a 3 day supply: [x] Yes [] No Would you like a call back once the refill request has been completed: [] Yes [x] No If the office needs to give you a call back, can they leave a voicemail: [] Yes [x] No Mayra Rizvi Rep 07/07/24 12:44 EDT documented in this encounter Plan of Treatment Upcoming Encounters Date Type Department Care Team (Late st Contact Info) Description 11/01/2024 1:00 PM EDT Office Visit [facility] [address] [place] [phone] Mohit Chávez DO [address] [facility] [place] [place] [address] documented as of this encounter Visit Diagnoses Not on filedocumented in this encounter Care Teams Load Mixer Relationship Specialty Start Date End Date Mohit Chávez DO [address] [facility], [place] [id number] PCP - General Family Medicine 03/08/21 documented as of this encounter
--- OUTSIDE RECORDS SUMMARY | 2024-10-02 16:03 | XMS_ITS | Encounter Summary ---
Author Organization [facility] Address [address] [place] [id number] Care Team Providers Care Javascript Software Engineer Name Role Phone Mohit Chávez DO Primary Care Provider +1- [phone] Reason for Visit * Reason Comments Med Refill Encounter Details Date Type Department Care Team (Late st Contact Info) Description 08/22/2024 Refill [facility] [address] [place] [address] Mohit Chávez DO [address] [place], [place] [id number] Social History Tobacco Use Types Packs/Day Years [...] encounter Miscellaneous Notes * Telephone Encounter - Sarah Chun MA - 08/22/2024 11:29 AM EDT Rx Refill Note Requested Prescriptions Pending Prescriptions Disp Refills amLODIPine (NORVASC) 10 MG tablet [Pharmacy Med Name: AMLODIPINE BESYLATE 10 MG TAB] 90 tablet 1 Sig: TAKE 1 TABLET BY MOUTH ONCE DAILY sertraline (ZOLOFT) 25 MG tablet [Pharmacy Med Name: SERTRALINE HCL 25 MG TABLET] 90 tablet 1 Sig: TAKE 1 TABLET BY MOUTH ONCE DAILY Last office visit with prescribing clinician: 08/01/2024 Last telemedicine visit with prescribing clinician: Visit date not found Next office visit with prescribing clinician: 11/01/2024 Would you like a call back once the refill request has been completed: [] Yes [] No If the office needs to give you a call back, can they leave a voicemail: [] Yes [] No Sarah Chun MA 08/22/24, 11:29 EDT documented in this encounter Plan of Treatment Upcoming Encounters Date Type Department Care Team (Late st Contact Info) Description 11/01/2024 1:00 PM EDT Office Visit [facility] [address] [place] [address] Mohit Chávez DO [address] [place] [address] documented as of this encounter Visit Diagnoses Not on filedocumented in this encounter Care Teams Javascript Software Engineer Relationship Specialty Start Date End Date Mohit Chávez DO [address] [facility] [address] PCP - General Family Medicine 03/08/21 documented as of this encounter
--- OUTSIDE RECORDS SUMMARY | 2024-10-02 16:03 | XMS_ITS | Encounter Summary ---
Author Organization [facility] Address [address] [place] [id number] Care Team Providers Care Horse Show Judge Name Role Phone Mohit Chávez DO Primary Care Provider +1- [phone] Reason for Visit * Reason Comments Med Refill Encounter Details Date Type Department Care Team (Late st Contact Info) Description 09/06/2024 Refill [facility] [address] [place] [address] Mohit Chávez DO [address] [place], [place] [phone] Social History Tobacco Use Types Packs/Day Years [...] encounter Miscellaneous Notes * Telephone Encounter - Coco Krishnan MA - 09/06/2024 10:15 AM EDT Rx Refill Note Requested Prescriptions Pending Prescriptions Disp Refills cetirizine (zyrTEC) 10 MG tablet [Pharmacy Med Name: CETIRIZINE HCL 10 MG TABLET] 30 tablet 2 Sig: TAKE 1 TABLET BY MOUTH EVERY DAY Last office visit with prescribing clinician: 08/01/2024 Last telemedicine visit with prescribing clinician: Visit date not found Next office visit with prescribing clinician: 11/01/2024 Would you like a call back once the refill request has been completed: [] Yes [] No If the office needs to give you a call back, can they leave a voicemail: [] Yes [] No Coco Krishnan MA 09/06/24, 10:15 EDT documented in this encounter Plan of Treatment Upcoming Encounters Date Type Department Care Team (Late st Contact Info) Description 11/01/2024 1:00 PM EDT Office Visit [facility] [address] [place] [id number] Mohit Chávez DO [address] [place], [place] [id number] documented as of this encounter Visit Diagnoses Not on filedocumented in this encounter Care Teams Horse Show Judge Relationship Specialty Start Date End Date Mohit Chávez DO [address] [place], [place] [id number] PCP - General Family Medicine 03/08/21 documented as of this encounter
--- OUTSIDE RECORDS SUMMARY | 2024-10-02 16:03 | XMS_ITS | Clinical Summary ---
Author Organization [facility] Address [address] [place] [address] Care Team Providers Care Hydrotel Operator Name Role Phone Mohit Chávez DO Primary Care Provider [phone] Allergies No known active allergies Medications amLODIPine (Norvasc) 10 MG tablet Take 1 tablet (10 mg) by mouth 1 (one) time each day. 09/12/19 21 Active Blood Glucose Monitoring Suppl (GlucoCom Blood Glucose Monitor) device 1 each by Other route. Active chlorthalidone (Hygroton) 25 MG tablet 1 tablet (25 mg) 1 (one) time each day. 01/30/20 16 Active coenzyme Q-10 100 MG capsule Take by mouth. Acti ve fenofibrate micronized (Lofibra) 134 MG capsule Take 1 capsule (134 mg) by mouth 1 (one) time each day with breakfast. 07/06/19 21 Active Green Tea 150 MG capsule Take 150 mg by mouth 1 (one) time each day. Active lisinopril 40 MG tablet Take 1 tablet (40 mg) by mouth 1 (one) time each day. 09/12/19 21 Active metoprolol succinate XL (Toprol-XL) 25 MG 24 hr tablet Take 1 tablet (25 mg) by mouth 1 (one) time each day. 09/12/19 21 Active omeprazole (PriLOSEC) [address] capsule Take 1 capsule (40 mg) by mouth 1 (one) time each day. 09/12/19 21 Active Xarelto 20 MG tablet Take 1 tablet (20 mg) by mouth 1 (one) time each day. 09/12/19 21 Active rosuvastatin (Crestor) 10 MG tablet TAKE ONE TABLET BY MOUTH EVERY DAY 03/08/19 21 Active sertraline (Zoloft) 25 MG tablet Take 1 tablet (25 mg) by mouth 1 (one) time each day. 10/13/19 21 Active omega-3 (Fish Oil) 1000 MG capsule Take 2 capsules (2,000 mg) by mouth 1 (one) time each day. Active cetirizine (ZyrTEC) 10 MG tablet Take 1 tablet (10 mg) by mouth 1 (one) time each day. 09/12/19 21 Active ibuprofen 800 MG tablet Take 0.5 tablets (400 mg) by mouth 1 (one) time each day. Active acyclovir (Zovirax) 400 MG tablet Take 1 tablet (400 mg) by mouth 4 (four) times a day if needed. 04/13/19 22 Active traMADol (Ultram) 50 MG tablet 06/08/19 24 Active timolol (Timoptic) 0.5 % ophthalmic solution 03/13/19 24 Active HYDROcodone-aceta minophen (Walton) 5-325 MG tablet TAKE ONE TABLET BY MOUTH EVERY 6 HOURS MAY CAUSE DROWSINESS Active atropine 1 % ophthalmic solution instill 1 drop IN THE LEFT EYE TWICE DAILY 3 DAYS prior TO surgery 10/03/19 23 Active ketorolac (Acular) 0.5 % ophthalmic solution 10/01/19 23 Active Ventolin HFA 108 (90 Base) MCG/ACT inhaler TAKE 2 PUFFS BY MOUTH 4 TIMES A DAY 08/25/19 24 Active ciclopirox (Penlac) 8 % solution 07/28/19 24 Active nystatin (Mycostatin) 744391 UNIT/ML suspension Use 5 mL (500,000 Units) in the mouth or throat 4 times a day. 08/04/19 24 Active chlorhexidine (Peridex) 0.12 % solution RINSE MOUTH WITH 15ML (1 CAPFUL) FOR 30 SECONDS IN MORNING AND EVENING AFTER BRUSHING, THEN SPIT 09/04/19 24 Active ondansetron ODT (Zofran-ODT) 8 MG disintegrating tablet 06/18/19 24 Active ondansetron ODT (Zofran-ODT) 8 MG disintegrating tablet 08/03/19 24 Active glucagon (Baqsimi Two Pack) 3 MG/DOSE powder Nasal Powder Administer 3 mg into affected nostril(s) 1 (one) time if needed (severe hypoglycemia). 2 each 3 10/29/19 24 025 Active diazePAM (Valium) 2 MG tablet Take 1 tablet (2 mg) by mouth. 11/16/19 24 Active hydrOXYzine HCl (Atarax) 25 MG tablet TAKE 1-2 TABLET BY MOUTH 30-60 MINUTES BEFORE BEDTIME NEEDED FOR INSOMNIA ALLOW 7 HOURS SLEEP Active latanoprost (Xalatan) 0.005 % ophthalmic solution LOCATION: BOTH EYES. APPLY ONE DROP ONCE DAILY TO BOTH EYES AT BEDTIME 10/27/19 24 Active neomycin-polymyxi n-dexamethasone (Maxitrol) 3.5-80705-4.1 ophthalmic suspension 10/27/19 24 Active Denta 5000 Plus 1.1 % cream USE DIRECTED Ac tive triamcinolone (Kenalog) 0.1 % cream Apply 1 Application topically twice a day. 12/01/19 24 Active Mounjaro 10 MG/0.5ML solution auto-injector solution pen-injector INJECT 10MG UNDER THE SKIN DIRECTED ONCE A WEEK 08/09/19 25 Active insulin lispro (Admelog, HumaLOG) 100 UNIT/ML injection pen Inject subcutaneous 15-25 units with meals plus 1:30>150 SS, max dose 50u/day 15 mL 5 09/20/19 25 Active insulin glargine (Lantus SoloStar) 100 UNIT/ML injection pen Inject 20 Units under the skin nightly. 15 mL 4 09/20/19 25 026 Active Jardiance 25 MG Take 1 tablet by mouth daily. 30 tablet 09/20/19 25 026 Active pen needle, diabetic (B-D UF III MINI PEN NEEDLES) 31G X 5 MM misc 4x/day as directed 120 each 09/20/19 25 Active Continuous Glucose Sensor (FreeStyle Art 3 Sensor) misc 1 sensor every 14 days. 2 each 09/20/19 25 026 Active Lancets misc Use 4x/day as directed 120 each 09/20/19 25 Active glucose blood test strip 4x/day, Please provide strips compatible with patient's meter and insurance, iBoxPayuch verio 120 each 09/20/19 25 Active glucose blood (FREESTYLE TEST STRIPS) test strip One touch verio Reflect strips. Use to test blood sugars five times daily. e11.9 09/12/19 21 025 Disconti nued(The rapy complete d) Lancets (OneTouch Delica Plus [id number]) misc USE DIRECTED 5 times a DAY TO test blood glucose level 07/29/19 21 025 Disconti nued(The rapy complete d) Lancets misc Use 5x/day as directed 150 each 11 04/07/19 24 025 Disconti nued(Reo rder) Continuous Blood Gluc Sensor (FreeStyle Art 2 Sensor) misc 06/05/19 24 025 Disconti nued(The rapy complete d) insulin glargine (Lantus SoloStar) 100 UNIT/ML injection pen Inject 50 Units under the skin every night. 45 mL 3 10/29/19 24 025 Disconti nued(Reo rder) Jardiance 25 MG Take 1 tablet (25 mg) by mouth 1 (one) time each day. 90 tablet 3 10/29/19 24 025 Disconti nued(Reo rder) pen needle, diabetic (B-D UF III MINI PEN NEEDLES) 31G X 5 MM misc 4x/day as directed 360 each 3 10/29/19 24 025 Disconti nued(Reo rder) NovoLOG FLEXPEN 100 UNIT/ML injection pen Inject subcutaneous 20-35 units with meals, plus 2:30>150 SS, max dose 100u/day 90 mL 3 10/29/19 24 025 Disconti nued(Dup licate order) HumaLOG KWIKPEN 100 UNIT/ML injection pen INJECT 50 UNITS SUBCUTANEOUSLY WITH MEALS 3 TIMES DAILY. MAX 230 UNITS DAILY 11/09/19 24 025 Disconti nued(The rapy complete d) Hospital, Clinic, or Other Facility Administered Medication Ordered Dose Route Frequency Start Date End Date Status hylan (Synvisc) injection 48 mgIndications:Primary osteoarthritis of both knees 48 mg IX Once 03/31/2022 Active Active Problems Problem Noted Date Diagnosed Date Primary osteoarthritis of right knee 06/06/2024 Contusion of rib on left side 09/14/2023 Injury of great toe 09/14/2023 Pulmonary embolism 09/14/2023 Candidal stomatitis 08/04/2023 Other chronic pain 08/04/2023 Pain in right knee 08/04/2023 Pain in left knee 08/04/2023 Keratoconjunctivitis sicca, not specified as Sjogren's, bilateral 06/26/2023 Other secondary cataract, left eye 06/26/2023 Primary open-angle glaucoma, left eye, mild stag e 06/26/2023 Bilateral primary osteoarthritis of knee 024 Hemangioma of skin and subcutaneous tissue 04/22 Other specified erythematous conditions 04/23/19 Other skin changes due to ch ronic exposure to nonionizing radiation 04/23/2023 Pruritus, unspecified 04/23/2023 Other hypertrophic disorders of the skin 024 Pain in left toe(s) 04/20/2023 Pain in right toe(s) 04/20/2023 Type 2 diabetes mellitus wit h diabetic neuropathy, unspecified 04/20/2023 Tinea unguium 04/20/2023 Type 2 diabetes mellitus wit h hyperglycemia, with long-term current use of insulin 04/07/2023 Encounter for diabetic foot exam 04/07/2023 Hypertension 04/07/2023 Hyperlipidemia 04/07/2023 Type 2 diabetes mellitus with hyperglycemia 03/20 Obesity, unspecified 04/07/2023 Hyperlipidemia, unspecified 04/07/2023 Class III obesity with body mass index (BMI) of 40.0 or higher 03/16/2023 Type 2 diabetes mellitus wit h mild nonproliferative diabetic retinopathy without macular edema, bilateral 03/13/2023 Other biomechanical lesions of pelvic region 07/2023 Muscle spasm of back 02/21/2023 Postural kyphosis, cervicothoracic region 2023 Benign neoplasm of lip 12/22/2022 Pleurodynia 12/04/2022 Other bursal cyst, left hand 11/13/2022 Lumbago with sciatica, right side 11/11/2022 Other specified dorsopathies, lumbar region 10/18 Pain in left leg 11/11/2022 Pain in right leg 11/11/2022 Pain in thoracic spine 11/11/2022 Radiculopathy, cervical region 11/11/2022 Cystoid macular degeneration, right eye 11/05/19 Primary open-angle glaucoma 11/04/2022 Presence of intraocular lens 11/04/2022 Other forms of dyspnea 10/31/2022 Chest pain 10/27/2022 Dyspnea on exertion 10/27/2022 Cafe au lait spots 10/13/2022 Other melanin hyperpigmentation 10/13/2022 Radial styloid tenosynovitis (de quervain) 08/27 Trigger finger, right middle finger 08/27/2022 Allergic conjunctivitis of both eyes 03/07/2021 Overview (09/14/2023): Last Assessment & Plan: Can continue pataday prn Keratoconjunctivitis sicca o f both eyes due to decreased tear production 03/07/2021 Overview (09/14/2023): Last Assessment & Plan: Discussed the use of warm compresses and lid hygiene. Also discussed use of artificial tears during the day and gel at night. Discussed findings, options and risks with patient. He would like to start xiidra. Primary osteoarthritis of knees, bilateral 01/23 Overview (01/23/2021): Added automatically from request for surgery [id number] Age-related nuclear cataract of right eye 2020 Overview (09/14/2023): Last Assessment & Plan: Patient states that activities of daily living have reduced significantly enough to warrant surgery. Discussed options with patient including goals of surgery and available options. Discussed that cataract surgery cannot address other eye problems that may limit vision/symptoms. Discussed risks and benefits of surgery and patient would like to proceed with cataract extraction with lens implantation. Corneal thickness is less than 625. Patient would like to proceed with standard. Epiretinal membrane (ERM) of left eye 09/24/2020 Overview (09/14/2023): Last Assessment & Plan: Pt educated on findings, mildly affecting VA if any. Will monitor for changes. Suspected glaucoma of both eyes 09/24/2020 Overview (09/14/2023): Last Assessment & Plan: Patient with risk factors for glaucoma. Will continue to monitor for changes. Discussed risk of permanent blindness without proper treatment and follow up. Patient expressed understanding. Max IOP 17, 17 (icare). FH+ (one sister, unknown if parents did) C/d Large Pachy tbd Gonio tbd OCT nfl thin VF:tbd Risk factor based on large C/D and optic nerve OCT. Will need further testing following cataract surgery. Heel pain 03/04/2019 Degenerative arthritis of knee, bilateral 2016 Bilateral wrist pain 07/23/2016 Type 2 diabetes mellitus without retinopathy Overview (09/14/2023): Last Assessment & Plan: Discussed need to continuously control blood sugar and blood pressure. Stressed the importance of continuing to follow the advice of patient's PCP and other providers coordinating care. Patient has no evidence of diabetic retinopathy at this time and will follow up for next diabetic eye exam. Patient was instructed to return immediately with any changes in vision. Primary hypertension 06/10/2016 Overview (09/14/2023): Amlodipine 10, chlorthalidone 25, lisinopril 40, metoprolol XL 25mg Last Assessment & Plan: BP is elevated today - 150/70. Patient reports most of the time it is controlled in the office. Recommended patient begin home monitoring again, write down readings and bring them in next visit. Continue current medications at his time. RTC in 2 weeks for hypertension follow-up with his primary care provider. Hyperlipidemia with target LDL less than 100 Encounters Date Type Department Care Team Description 09/19/2024 3:40 PM EDT [facility] [address] [place] [id number] Delicia Miner APRN Type 2 diabetes mellitus without complication, with long-term current use of insulin (Primary Dx); Class 1 obesity with serious comorbidity and body mass index (BMI) of 32.0 to 32.9 in adult, unspecified obesity type; Hyperlipidemia, unspecified hyperlipidemia type; Hypertension, unspecified type 09/19/2024 Travel 08/29/2024 2:30 PM EDT Office Visit [facility] [address], [address] [place] [address] Vasu Yanez PA Primary osteoarthritis of left knee (Primary Dx); Primary osteoarthritis of right knee 08/29/2024 Travel 08/22/2024 Telephone [facility] [address], [address] [place] [address] Basim Black MD from Last 3 Months Immunizations Immunization Administration Dates Next Due Hep A, Adult 03/04/2019,02/22/2018 Hep B, adult 11/26/2019,12/24/2018,04/16/2018 Influenza, Unspecified 12/02/2017 Influenza, injectable, quadr ivalent, preservative free 02/17/2021,10/18/2016 Influenza, recombinant, quad rivalent, injectable, preservative free 11/26/2019,10/22/2018 Anjelica COVID-19 Vaccine (Blue Cap) 18+ 04/25/19 21 Pneumococcal Polysaccharide PPV23 04/16/2018 Tdap 09/10/2020 Zoster, Recombinant 09/10/2020,06/08/2020 Family History Medical History Relation Name Comments Diabetes Other Relation Name Status Comments Other Social History Tobacco Use Types Packs/Day Years [...] on file Sexual Orientation Not on file Last Filed Vital Signs Vital Sign Reading Time Taken Comments Blood Pressure 123/74 09/19/2024 3:13 PM EDT Pulse 77 09/19/2024 3:13 PM EDT Temperature 36.7 C (98.1 F) 03/14/2024 9:42 AM EST Respiratory Rate 20 12/17/2022 2:19 PM EDT Oxygen Saturation 98% 08/29/2024 2:02 PM EDT Inhaled Oxygen Concentration - - Weight 98.5 kg (217 lb 2.5 oz) 09/19/2024 3:13 P M EDT Height 175.3 cm (5' 9.02 ) 09/19/2024 3:13 PM ED T Body Mass Index 32.05 09/19/2024 3:13 PM EDT Plan of Treatment Upcoming Encounters Date Type Department Care Team (Late st Contact Info) Description 11/25/2024 10:10 AM EDT Office Visit [facility] [address], [address] [place] [address] Vasu Yanez, PA [address] [place] [address] 03/22/2025 3:40 PM EST Office Visit [facility] [address] [place] [phone] Delicia Miner, INFORMATION CLERK [address] [place] [address] Health Maintenance Due Date Last Done Comments [facility]-Depression Screening 1960 [facility]-HIV Screening 1960 [facility]-Hepatitis C Screening 1960 [facility]-Infant/Child/Adol SDOH Screenings 1960 Diabetes: Dental Exam 1970 [facility]- SDOH Screenings 1978 [facility]-Adult SDOH Screenings 1978 CT Colonography 2005 Colonoscopy 2005 FIT-DNA 2005 FIT 2005 FOBT 2005 Sigmoidoscopy 2005 [facility]-Colorectal Cancer Screening 2005 [facility]-RSV Vaccine: 60+ Years or (1 - Risk 60-74 years 1-dose series) 2020 [facility]-Pneumococcal Vaccine: 50+ Years (3 of 3 - PCV20 or PCV21) 04/17/2023 04/16/2018, 11/22/2015 [id number] Vaccine (2 - season) 2023 04/24/2020 [facility]-Influenza Vaccine (#1) 10/17/202411/30, 02/17/2021, 11/26/2019, Additional history exists [facility]-Diabetes: Hemoglobin A1C 03/19/202505/2024, 04/29/2024, 10/29/2023, Additional history exists [facility]-DTaP,Tdap,and Td Vaccines (2 - Td or Tdap) 09/10/2030 09/10/2020 [facility]-Hepatitis A Vaccines Aged Out 03/04/2019, 08/2018 No longer eligible based on patient's age to complete this topic [facility]-Zoster Vaccines Completed 09/10/2020, [facility]-Obesity Intervention Completed 025, 09/19/2024, 09/19/2024, Additional history exists HPV Vaccines Aged Out No longer eligi ble based on patient's age to complete this topic [facility]-HIB Vaccines Aged Out No longer e ligible based on patient's age to complete this topic [facility]-IPV Vaccines Aged Out No longer e ligible based on patient's age to complete this topic [facility]-Rotavirus Vaccines Aged Out No lo nger eligible based on patient's age to complete this topic Procedures Procedure Name Priority Date/Time Associated Diagnosis Comments POCT GLYCOSYLATED HEMOGLOBIN (HGB A1C) Routine 09/19/2024 3:29 PM EDT Type 2 diabetes mellitus without complication, with long-term current use of insulin TX ARTHROCENTESIS ASPIR&/INJ MAJOR JT/BURSA W/O US Routine 08/29/2024 2:30 PM EDT Primary osteoarthritis of left knee Primary osteoarthritis of right knee from Last 3 Months Results * POCT glycosylated hemoglobin (Hb A1C) (09/19/2024 3:29 PM EDT) POCT Hemoglobin A1C 6.0 <5.7% Non-Diabet ic % [facility] Kit Lot Number [id number] [facility] Kit Expiration Date 07/15/26 HEALTHCARE [facility] Blood Venous blood specimen / Unknown 09/19/2024 3:29 PM EDT Delicia Miner INFORMATION CLERK POINT OF CARE TEST ENTER/ED IT ORDERABLES Final Result [facility] [address] [place] [id number] * [place] ARTHROCENTESIS ASPIR&/INJ MAJOR JT/BURSA W/O US (08/29/2024 [...] to verify the correct patient, procedure, equipment, production support specialist and site/side marked as required. Patient was prepped and draped in the usual sterile fashion. Procedure, treatment alternatives, risks and benefits explained, specific risks discussed (Risks include but are not limited to pain, bleeding, infection, failure to relieve symptoms). Consent was given by the patient. Immediately prior to procedure a time out was called to verify the correct patient, procedure, equipment, production support specialist and site/side marked as required. Patient was prepped and draped in the usual sterile fashion. Vasu CORRAL IN CLINIC/BEDSIDE ORDERABLES Final Result from Last 3 Months Insurance [id number] [place] [address] [employer] [facility] MEDICAID Care Teams Hydrotel Operator Relationship Specialty Start Date End Date Mohit Chávez DO [address] [place] [address] PCP - General 06/06/24
--- OUTSIDE RECORDS SUMMARY | 2024-10-02 16:03 | XMS_ITS | Encounter Summary ---
Author Organization [facility] Address [address] [place] [id number] Care Team Providers Care Time Clerk Name Role Phone Mohit Chávez DO Primary Care Provider [phone]- [phone] Reason for Visit * Reason Comments Med Refill Encounter Details Date Type Department Care Team (Late st Contact Info) Description 09/02/2024 Refill [facility] [address] [place] [address] Mohit Chávez DO [address] [place] [address] Chronic pain of both knees Social History [...] encounter Miscellaneous Notes * Telephone Encounter - Katharine Maldonado PA-C - 09/02/2024 2:15 PM EDT I think it is too early to refill. Will forward to Dr. Chávez for his return Thursday. * Telephone Encounter - Aliza Dillon MA - 09/02/2024 1:14 PM EDT Rx Refill Note Requested Prescriptions Pending Prescriptions Disp Refills traMADol (ULTRAM) 50 MG tablet [Pharmacy Med Name: TRAMADOL HCL 50 MG TABLET] 150 tablet 2 Sig: TAKE 1 TABLET BY MOUTH 5 TIMES A DAY. Last office visit with prescribing clinician: 08/01/2024 Last telemedicine visit with prescribing clinician: Visit date not found Next office visit with prescribing clinician: 11/01/2024 Would you like a call back once the refill request has been completed: [] Yes [] No If the office needs to give you a call back, can they leave a voicemail: [] Yes [] No Aliza Dillon MA 09/02/24, 13:14 EDT documented in this encounter Plan of Treatment Upcoming Encounters Date Type Department Care Team (Late st Contact Info) Description 11/01/2024 1:00 PM EDT Office Visit [facility] [address] [place] [phone] Mohit Chávez DO [address] [place] [address] documented as of this encounter Visit Diagnoses Diagnosis Chronic pain of both knees documented in this encounter Care Teams Time Clerk Relationship Specialty Start Date End Date Mohit Chávez DO [address] [place] [address] PCP - General Family Medicine 03/08/21 documented as of this encounter
--- OUTSIDE RECORDS SUMMARY | 2024-10-02 16:03 | XMS_ITS | Encounter Summary ---
Author Organization [facility] Address [address] [place] [address] Care Team Providers Care Personnel Manager Name Role Phone Mohit Chávez DO Primary Care Provider +1- [phone] Reason for Visit * Reason Onset Date Comments Med Refill 08/01/2022 Encounter Details Date Type Department Care Team (Late st Contact Info) Description 08/01/2022 Refill [facility] [address] [place] [phone] Mohit Chávez DO [address] [place] [id number] Type 2 diabetes mellitus without complications Social History Tobacco Use Types Packs/Day Years Used Date Smoking Tobacco: Never Passive Smoke Exposure: Never Smokeless Tobacco: Never Alcohol Use Standard Drinks/Week Comments Never 0 (1 standard drink = 0.6 oz pur e alcohol) PHQ-2 Answer Date Recorded Retired PHQ-9: Brief Depression Severity Measure Score 0 03/24/2022 PHQ-2 Answer Date Recorded Retired PHQ-9: Brief Depression Severity Measure Score 0 03/24/2022 Sex and Gender Information Value Date Recorded Sex Assigned at Not on file Legal Sex Male 7:49 PM EDT Gender Identity Not on file Sexual Orientation Not on file documented as of this encounter Miscellaneous Notes * Telephone Encounter - Ayesha Huerta RegSched Rep - 08/01/2022 12:14 PM EDT Caller: Arun Ramon Relationship: Self Best call back number: [phone] Requested Prescriptions: Requested Prescriptions Pending Prescriptions Disp Refills insulin aspart (NovoLOG FlexPen) 100 UNIT/ML solution pen-injector sc pen 15 mL 5 Pharmacy where request should be sent: [facility] - [phone] PH - [phone] FX Last office visit with prescribing clinician: 06/02/2022 Last telemedicine visit with prescribing clinician: Visit date not found Next office visit with prescribing clinician: 09/02/2022 Additional details provided by patient: PATIENT HAS ABOUT HALF A PEN LEFT. THIS CAN EITHER LAST A DAY OR HALF A DAY BECAUSE IT IS ON A SLIDING SCALE. PATIENT'S PHARMACY TOLD HIM THAT THIS WAS DECLINED BY THE DOCTOR BECAUSE THE REFILL WAS NOT APPROPRIATE. THE PATIENT IS VERY CONFUSED AND CONCERNED ABOUT THIS. PLEASE CALL THE PATIENT IF THIS CANNOT BE SENT IN. Does the patient have less than a 3 day supply: [x] Yes [] No Would you like a call back once the refill request has been completed: [x] Yes [] No If the office needs to give you a call back, can they leave a voicemail: [x] Yes [] No Mayra Astudillo 08/01/22 12:15 EDT documented in this encounter Plan of Treatment Upcoming Encounters Date Type Department Care Team (Late st Contact Info) Description 11/01/2024 1:00 PM EDT Office Visit [facility] [address] [place] [phone] Mohit Chávez DO [address] [place] [address] documented as of this encounter Visit Diagnoses Diagnosis Type 2 diabetes mellitus without complications documented in this encounter Care Teams Personnel Manager Relationship Specialty Start Date End Date Mohit Chávez DO [address] [place] [address] PCP - General Family Medicine 03/08/21 documented as of this encounter
--- OUTSIDE RECORDS SUMMARY | 2024-10-02 16:03 | XMS_ITS | Encounter Summary ---
Author Organization Healthcare Address [address] [place] [address] Care Team Providers Care Deputy Coroner Investigator Name Role Phone Khang Brown MD Primary Care Provider [phone] Mohit Chávez DO Primary Care Provider [phone] Reason for Referral * Consultation (Routine) - Closed Specialty Diagnoses / Procedures Referred By Blessing chen Referred To Contact Hand Surgery Diagnoses Other bursal cyst, left hand Guy Bunch APRN [address] [place] [address] Phone: tel: fax: [facility] [address] [place] [address] Phone: tel: fax: Referral ID Status Reason Start Date Expiration Date V isits Requested Visits Authorized [id number] Closed Specialty Services Required 10/22/2022 04/22/2024 1 1 Encounter Details Date Type Department Care Team (Late st Contact Info) Description 10/22/2022 Community [facility] [address] [place] [address] Guy Bunch APRN [address] [place] [address] Other bursal cyst, left hand (Primary Dx) Social History Tobacco Use Types Packs/Day Years Used Date Smoking Tobacco: Never Smokeless Tobacco: Never Alcohol Use Standard [...] Upcoming Encounters Date Type Department Care Team ([facility] st Contact Info) Description 11/25/2024 10:10 AM EDT Office Visit Medical Office [facility] [address], [address] [place] [address] Vasu Yanez PA [address] [place] [address] 03/22/2025 3:40 PM EST Office Visit [facility] [address] [place] [address] Delicia Miner, SWIMMING POOL INSTALLER AND SERVICER [address] [facility] [address] [place] [address] Scheduled Referrals Name Type Priority Associated Diagnoses Order Schedule Ambulatory referral to Hand Surgery Outpatient Referral Routine Other bursal cyst, left hand Expected: 10/22/2022 (Approximate), Expires: 04/21/2024 documented as of this encounter Visit Diagnoses Diagnosis Other bursal cyst, left hand- Primary documented in this encounter Additional Health Concerns Assessment Noted Time A fall risk assessment has been complete d for the patient 09/17/2022 1:32 PM EDT A Body Mass Index follow-up plan has been documented for the patient 09/17/2022 2:15 PM EDT documented as of this encounter Care Teams Deputy Coroner Investigator Relationship Specialty Start Date End Date Khang Brown MD [address] [place] [address] [id number] PCP - General 06/29/20 06/05/24 Mohit Chávez DO [address] [place] [address] PCP - General 06/06/24 documented as of this encounter
--- OUTSIDE RECORDS SUMMARY | 2024-10-02 16:03 | XMS_ITS | Encounter Summary ---
Author Organization [facility] Address [address] [place] [id number] Care Team Providers Care Flag Signaler Name Role Phone Mohit Chávez DO Primary Care Provider [phone] Reason for Visit * Reason Comments Med Refill Encounter Details Date Type Department Care Team (Late st Contact Info) Description 09/12/2024 Refill [facility] [address] [place] [address] Mohit Chávez DO [address] [place] [address] Social History Tobacco Use Types Packs/Day Years [...] Description 11/01/2024 1:00 PM EDT Office Visit [facility] [address] [place] [address] Mohit Chávez DO [address] [place] [address] documented as of this encounter Visit Diagnoses Not on filedocumented in this encounter Care Teams Flag Signaler Relationship Specialty Start Date End Date Mohit Chávez DO [address] [place] [address] PCP - General Family Medicine 03/08/21 documented as of this encounter
--- OUTSIDE RECORDS SUMMARY | 2024-10-02 16:03 | XMS_ITS | Encounter Summary ---
Author Organization [facility] Address [address] [place] [id number] Care Team Providers Care On Site Nurse Name Role Phone Mohit Chávez DO Primary Care Provider [phone] Reason for Visit * Reason Onset Date Comments FAX 08/16/2024 Encounter Details Date Type Department Care Team (Late st Contact Info) Description 08/16/2024 Telephone [facility] [address] [place] [address] Mohit Chávez DO [address] [place] [address] FAX Social History Tobacco Use Types Packs/Day Years [...] encounter Miscellaneous Notes * Telephone Encounter - Marlin Alvarado RegSched Rep - 08/16/2024 9:42 AM EDT Caller: [facility] Relationship: Other Best call back number: [phone] What is the best time to reach you: ANYTIME Who are you requesting to speak with (clinical staff, provider, specific staff member): What was the call regarding: PREVIOUS XARELTO HOLDING INSTRUCTIONS WAS SENT OVER BY FAX ON 06.06.24 AND THERE HAS BEEN NO RESPONSE. SENDING THIS BACK OVER TODAY FOR A RESPONSE TO THE INSTRUCTIONS. PLEASE REVIEW AND SEND BACK ACCORDINGLY. documented in this encounter Plan of Treatment Upcoming Encounters Date Type Department Care Team (Late st Contact Info) Description 11/01/2024 1:00 PM EDT Office Visit [facility] [address] [place] [address] Mohit Chávez DO [address] [place] [address] documented as of this encounter Visit Diagnoses Not on filedocumented in this encounter Care Teams On Site Nurse Relationship Specialty Start Date End Date Mohit Chávez DO [address] [facility] [place] [address] PCP - General Family Medicine 03/08/21 documented as of this encounter
--- OUTSIDE RECORDS SUMMARY | 2024-10-02 16:03 | XMS_ITS | Encounter Summary ---
Author Organization [facility] Address [address] [place] [address] Care Team Providers Care Board Lining Machine Operator Name Role Phone Mohit Chávez DO Primary Care Provider [phone]- [phone] Encounter Details Date Type Department Care Team (Late st Contact Info) Description 06/30/2024 Prior Authorization [facility] [address] [place] [address] Mohit Chávez DO [address] [place], [place] [id number] Social History Tobacco Use Types Packs/Day Years [...] encounter Miscellaneous Notes * Telephone Encounter - Patti Noel MA - 08/09/2024 10:47 AM EDT PA APPEAL APPROVED LETTER SCANNED IN EFFECTIVE 07/14/24-01/13/25 * Telephone Encounter - Patti Noel MA - 07/14/2024 10:26 AM EDT Called insurance and they informed me that he needed a appeal letter informing what meds have been tried in past. Appeal letter sent * Telephone Encounter - Patti Noel MA - 07/13/2024 1:25 PM EDT Pt states per insurance when he called they dont see where the pt has ever been on 2.5,5,nor 7.5mg.states they have record of 2.5mg and then a 10mg rx. States to call insurance and speak with them Attempted to call no answer will try again later * Telephone Encounter - Patti Noel MA - 07/08/2024 10:57 AM EDT Mari: [id number]) - [id number] Mounjaro 10MG/0.5ML auto-injectors status: PA Response - Denied Created: July 06, 2024 Sent: July 08, 2024 Message from Plan This request has not been approved. Based on the information we received, you did not meet the specific rule(s) needed to approve this request. In some cases, the requested drug or alternatives offered may have other guideline rules that need to be met. Our guideline named GLP-1 RECEPTOR AGONISTS requires the following rule(s) be met for approval: A. The member has had at least a 3-month trial and failure [drug did not work], allergy, contraindication [harmful for] (including potential drug-drug interactions with other medications) or intolerance [side effect] to two preferred GLP-1 agonists [drug in the same group]: Ina Pratt Trulicity, Victoza supported by: 1. Claims history confirmation OR 2. Chart notes confirming the preferred failures This is why your request is denied. Please work with your doctor to use a different medication or get us more information if it will allow usto approve this request A written notification letter will follow with additional details. [employer] [id number] [facility] [address] or * Telephone Encounter - German Mejia MA - 07/06/2024 1:16 PM EDT Some plans only allow the same dose a specific amount of times per cycle I believe. It seems he's been on the 10mg dose for awhile. Should he go up a dose? I believe this is what the plan limit is referring to when it comes to the 10mg dose. He's exceeded the limit. I've seen this once before. * Telephone Encounter - Mohit Chávez DO - 07/06/2024 10:07 AM EDT Very confused what they are wanting then. Could we call and check what the issue is? They seem to be wanting it for 90 days but won't cover a 90 day supply. We could try sending as 2mL (30 day supply) * Telephone Encounter - Patti Noel MA - 07/05/2024 1:41 PM EDT Sent in a new rx with a 3ml quantity and received a new PA with same response (Mari: [id number]) Mounjaro 10MG/0.5ML auto-injectors status: Question Response - N/A Created: July 05, 2024 Information regarding your request The requested day supply exceeds plan limits for the selected drug or product. Please resubmit the claim for the day supply allowed by the plan * Telephone Encounter - Patti Noel MA - 06/30/2024 4:18 PM EDT (Mari: [id number]) Mounjaro 10MG/0.5ML auto-injectors status: Question Response - N/A Created: June 30, 2024 Information regarding your request The requested day supply exceeds plan limits for the selected drug or product. Please resubmit the claim for the day supply allowed by the plan documented in this encounter Plan of Treatment Upcoming Encounters Date Type Department Care Team (Late st Contact Info) Description 11/01/2024 1:00 PM EDT Office Visit [facility] [address] [place] [address] Mohit Chávez DO [address] [place] [address] documented as of this encounter Visit Diagnoses Not on filedocumented in this encounter Care Teams Board Lining Machine Operator Relationship Specialty Start Date End Date Mohit Chávez DO [address] [place] [address] PCP - General Family Medicine 03/08/21 documented as of this encounter
--- OUTSIDE RECORDS SUMMARY | 2024-10-02 16:03 | XMS_ITS | Encounter Summary ---
Author Organization [facility] Address [address] [place] [id number] Care Team Providers Care Vp Ancillary Name Role Phone Mohit Chávez DO Primary Care Provider [phone]- [phone] Reason for Visit * Reason Onset Date Comments Med Refill 12/17/2022 Encounter Details Date Type Department Care Team (Late st Contact Info) Description 12/17/2022 Refill [facility] [address] [place] [id number] Mohit Chávez DO [address] [place] [id number] Type 2 diabetes mellitus without complications Social History Tobacco Use Types Packs/Day Years Used Date Smoking Tobacco: Never Passive Smoke Exposure: Never Smokeless Tobacco: Never Alcohol Use Standard Drinks/Week Comments Never 0 (1 standard drink = 0.6 oz pur e alcohol) PHQ-2 Answer Date Recorded Retired PHQ-9: Brief Depression Severity Measure Score 0 03/24/2022 Abuse Screen Answer Date Recorded Unsafe at Home or Work/School Not on file Feels Threatened by Someone? Not on file 10/2022 Does Anyone Keep You from Co ntacting Others or Doint Things Outside the Home? Not on file 11/24/2022 Physical Sign of Abuse Present Not on file 1 PHQ-2 Answer Date Recorded Retired PHQ-9: Brief Depression Severity Measure Score 0 03/24/2022 Sex and Gender Information Value Date Recorded Sex Assigned at Not on file Legal Sex Male 7:49 PM EDT Gender Identity Not on file Sexual Orientation Not on file documented as of this encounter Miscellaneous Notes * Telephone Encounter - Junior Marks RegSched Rep - 12/17/2022 10:56 AM EDT Caller: Arun Ramon Relationship: Self Best call back number: [phone] Requested Prescriptions: Requested Prescriptions Pending Prescriptions Disp Refills insulin aspart (NovoLOG FlexPen) 100 UNIT/ML solution pen-injector sc pen 15 mL 5 Levemir FlexTouch 100 UNIT/ML injection Pharmacy where request should be sent: [facility] [place] [address] - [phone] PH - [phone] FX Last office visit with prescribing clinician: 10/08/2022 Last telemedicine visit with prescribing clinician: Visit date not found Next office visit with prescribing clinician: 01/13/2023 Additional details provided by patient: PATIENT IS RUNNING LOW ON NOVALOG AND NEEDING A NEW PRESCRIPTION FOR BOTH OF THESE MEDICATIONS Does the patient have less than a 3 day supply: [x] Yes [] No Would you like a call back once the refill request has been completed: [x] Yes [] No If the office needs to give you a call back, can they leave a voicemail: [x] Yes [] No Mayra Jurado Rep 12/17/22 10:57 EDT documented in this encounter Plan of Treatment Upcoming Encounters Date Type Department Care Team (Late st Contact Info) Description 11/01/2024 1:00 PM EDT Office Visit [facility] [address] [facility] [phone] Mhoit Chávez DO [address] [place], [place] [id number] documented as of this encounter Visit Diagnoses Diagnosis Type 2 diabetes mellitus without complications documented in this encounter Care Teams Vp Ancillary Relationship Specialty Start Date End Date Mohit Chávez DO [address] [place] [address] PCP - General Family Medicine 03/08/21 documented as of this encounter
--- OUTSIDE RECORDS SUMMARY | 2024-10-02 16:03 | XMS_ITS | Encounter Summary ---
Author Organization [facility] Address [address] [place] [phone] Care Team Providers Care Application Support Engineer Name Role Phone Mohit Chávez DO Primary Care Provider +1- [phone] Reason for Visit * Reason Comments Med Refill Encounter Details Date Type Department Care Team (Late st Contact Info) Description 08/08/2024 Refill [facility] [address] [place] [address] Mohit Chávez DO [address] [place] [address] Grief reaction Social History Tobacco Use Types Packs/Day Years [...] Telephone Encounter - Sarah Chun MA - 08/08/2024 3:12 PM EDT Rx Refill Note Requested Prescriptions Pending Prescriptions Disp Refills hydrOXYzine (ATARAX) 25 MG tablet [Pharmacy Med Name: HYDROXYZINE HCL 25 MG TABLET] 180 tablet Sig: TAKE 1-2 TABLET BY MOUTH 30-60 MINUTES BEFORE BEDTIME NEEDED FOR INSOMNIA, ALLOWING AT LEAST 7 HOURS BEFORE SCHEDULED WAKE-UP TIME. Last office visit with prescribing clinician: 08/01/2024 Last telemedicine visit with prescribing clinician: Visit date not found Next office visit with prescribing clinician: 11/01/2024 Would you like a call back once the refill request has been completed: [] Yes [] No If the office needs to give you a call back, can they leave a voicemail: [] Yes [] No Sarah Chun MA 08/08/24, 15:13 EDT documented in this encounter Plan of Treatment Upcoming Encounters Date Type Department Care Team (Late st Contact Info) Description 11/01/2024 1:00 PM EDT Office Visit [facility] [address] [place] [id number] Mohit Chávez DO [address] [place] [address] documented as of this encounter Visit Diagnoses Diagnosis Grief reaction Adjustment disorder with depressed mood documented in this encounter Care Teams Application Support Engineer Relationship Specialty Start Date End Date Mohit Chávez DO [address] [place] [address] PCP - General Family Medicine 03/08/21 documented as of this encounter
--- OUTSIDE RECORDS SUMMARY | 2024-10-02 16:03 | XMS_ITS | Clinical Summary ---
Author Organization [facility] Address [address] [place] [address] Care Team Providers Care Sales Order Specialist Name Role Phone Mohit Chávez DO Primary Care Provider [phone] Allergies Active Allergy Reactions Criticality Noted Date Comments Semaglutide(0.25 Or 0.5mg-Dos) Nausea Only Low 03/2023 Medications Lancets (OneTouch Delica Plus [id number]) misc USE DIRECTED 5 times a DAY TO test blood glucose level Active coenzyme Q10 100 MG capsule Take by mouth. Acti ve Green Tea 150 MG capsule Take by mouth. Activ e [place]-3 Fatty Acids (fish oil) 1000 MG capsule capsule Take 2 capsules by mouth Daily. Active bacitracin-polymy remy b (POLYSPORIN) [id number] UNIT/GM ophthalmic ointment Active latanoprost (XALATAN) 0.005 % ophthalmic solution LOCATION: RIGHT EYE. APPLY ONE DROP TO THE RIGHT EYE ONCE DAILY AT BEDTIME Active Lactobacillus Rhamnosus, GG, (RA Probiotic Digestive Care) capsule Take 1 capsule by mouth Daily. Active acyclovir (ZOVIRAX) 400 MG tablet Take 1 tablet by mouth Every 6 (Six) Hours. Active Jardiance 25 MG tablet tabletIndications :Type 2 diabetes mellitus without complication, with long-term current use of insulin TAKE ONE TABLET BY MOUTH EVERY DAY 30 tablet Active glucose monitor monitoring kit Use to test glucose four times daily. 1 each Active promethazine-dext romethorphan (PROMETHAZINE-DM) 6.25-15 MG/5ML syrup Take 5 mL by mouth 4 (Four) Times a Day As Needed for Cough. 180 mL 023 Active Blood Glucose Monitoring Suppl (Renkoo Verio Flex System) w/Device kit by Other route 4 (Four) Times a Day. use to test blood sugar 023 Active timolol (TIMOPTIC) 0.5 % ophthalmic solution 024 Active B-D UF III MINI PEN NEEDLES 31G X 5 MM miscIndications:T ype 2 diabetes mellitus without complication, with long-term current use of insulin Use to inject up to 4 times daily 100 each 4 024 Active HYDROcodone-aceta minophen (NORCO) 5-325 MG per tablet Take 1 tablet by mouth Every 6 (Six) Hours As Needed for Other (Drowsiness). Active ondansetron ODT (ZOFRAN-ODT) 8 MG disintegrating tabletIndications :Type 2 diabetes mellitus without complication, with long-term current use of insulin Place 1 tablet on the tongue Every 8 (Eight) Hours As Needed for Nausea or Vomiting. 9 tablet 2 024 Active tadalafil (CIALIS) 10 MG tablet TAKE 1 TABLET BY MOUTH DAILY NEEDED FOR ERECTILE DYSFUNCTION. 10 tablet 2 024 Active nystatin (MYCOSTATIN) 100,000 unit/mL suspensionIndicat ions:Oral thrush SWISH AND SWALLOW 5 ML 4 (FOUR) TIMES A DAY. 120 mL 024 Active diazePAM (Valium) 2 MG tabletIndications :Grief reaction Take 1 tablet by mouth 2 (Two) Times a Day As Needed for Anxiety or Sedation. 30 tablet 024 Active lisinopril (PRINIVIL,ZESTRIL ) 40 MG tabletIndications :Primary hypertension TAKE 1 TABLET BY MOUTH EVERY DAY 90 tablet 1 024 Active rosuvastatin (CRESTOR) 10 MG tablet TAKE 1 TABLET BY MOUTH EVERY DAY 90 tablet 1 024 Active omeprazole (priLOSEC) 40 MG capsule Take 1 capsule by mouth Daily. 90 capsule 3 024 Active albuterol sulfate HFA (Ventolin HFA) 108 (90 Base) MCG/ACT inhaler Inhale 2 puffs 4 (Four) Times a Day. 18 g 11 024 Active Sodium Fluoride (Denta 5000 Plus) 1.1 % cream See Admin Instructions. Active prednisoLONE acetate (PRED FORTE) 1 % ophthalmic suspension INSTILL 1 DROP IN THE RIGHT EYE THREE TIMES DAILY (EVERY 8 HOURS) FOR 2 WEEKS, THEN TAPER WEEKLY DIRECTED Active ketorolac (ACULAR) 0.5 % ophthalmic solution INSTILL 1 DROP IN THE RIGHT EYE THREE TIMES DAILY (EVERY 8 HOURS) FOR 2 WEEKS, THEN TAPER WEEKLY DIRECTED Active insulin detemir (Levemir FlexPen) 100 UNIT/ML injection INJECT 75 UNITS SUBCUTANEOUSLY EVERY DAY DIRECTED Active ciclopirox (PENLAC) 8 % solution APPLY ONCE DAILY TO AFFECTED AREA CLEANSE WITH ALCOHOL PRIOR TO NEXT USE 025 Active chlorhexidine (PERIDEX) 0.12 % solution RINSE MOUTH WITH 15ML (1 CAPFUL) FOR 30 SECONDS IN MORNING AND EVENING AFTER BRUSHING, THEN SPIT Active metoprolol succinate XL (TOPROL-XL) 25 MG 24 hr tabletIndications :Primary hypertension Take 0.5 tablets by mouth Daily. 45 tablet 1 025 Active triamcinolone (KENALOG) 0.1 % creamIndications: Other eczema Apply 1 Application topically to the appropriate area as directed 2 (Two) Times a Day. 45 g 3 025 Active Lantus SoloStar 100 UNIT/ML injection pen [id number] UNITS SUBCUTANEOUSLY AT NIGHT 025 Active Continuous Glucose Sensor (FreeStyle Art 2 Sensor) miscIndications:T ype 2 diabetes mellitus without complication, with long-term current use of insulin USE 1 EACH EVERY 14 (FOURTEEN) DAYS. 6 each 2 025 Active glucose blood (OneTouch Verio) test stripIndications: Type 2 diabetes mellitus without complication, with long-term current use of insulin 1 each by Other route 5 (Five) Times a Day. use to test blood sugar 5 times daily 50 each 10 025 Active chlorthalidone (HYGROTON) 25 MG tabletIndications :Primary hypertension Take 0.5-1 tablets by mouth Daily. 90 tablet 025 Active polyethylene glycol (MIRALAX) 17 g packetIndications :Drug-induced constipation Take 17 g by mouth Daily. Dissolve in 12oz water 30 each 025 Active amLODIPine (NORVASC) 5 MG tabletIndications :Primary hypertension TAKE 1 TABLET BY MOUTH EVERY DAY 90 tablet 025 Active timolol (BETIMOL) 0.5 % ophthalmic solution Administer 1 drop to both eyes Daily. 025 Active Mounjaro 2.5 MG/0.5ML solution auto-injectorIndi cations:Type 2 diabetes mellitus without complication, with long-term current use of insulin Inject 2.5 mg under the skin into the appropriate area as directed 1 (One) Time Per Week. Increase to 5mg after 4 weeks 2 mL 025 Active Insulin Lispro, 1 Unit Dial, (HUMALOG) 100 UNIT/ML solution pen-injectorIndic ations:Type 2 diabetes mellitus without complication, with long-term current use of insulin Inject 10-15 Units under the skin into the appropriate area as directed 3 (Three) Times a Day Before Meals. 15 mL 2 025 Active hydrOXYzine (ATARAX) 25 MG tabletIndications :Grief reaction TAKE 1-2 TABLET BY MOUTH 30-60 MINUTES BEFORE BEDTIME NEEDED FOR INSOMNIA, ALLOWING AT LEAST 7 HOURS BEFORE SCHEDULED WAKE-UP TIME. 180 tablet 025 Active amLODIPine (NORVASC) 10 MG tablet TAKE 1 TABLET BY MOUTH ONCE DAILY 90 tablet 1 025 Active sertraline (ZOLOFT) 25 MG tablet TAKE 1 TABLET BY MOUTH ONCE DAILY 90 tablet 1 025 Active traMADol (ULTRAM) 50 MG tabletIndications :Chronic pain of both knees Take 1 tablet by mouth 5 (Five) Times a Day As Needed for Moderate Pain. 150 tablet 2 025 Active cetirizine (zyrTEC) 10 MG tablet TAKE 1 TABLET BY MOUTH EVERY DAY 30 tablet 2 025 Active Xarelto 20 MG tablet TAKE 1 TABLET BY MOUTH EVERY DAY 30 tablet 1 025 Active Accu-Chek FastClix Lancets misc Use to check blood glucose up to 3 times daily 102 each 11 025 Active traMADol (ULTRAM) 50 MG tabletIndications :Chronic pain of both knees Take 1 tablet by mouth 5 (Five) Times a Day. 150 tablet 2 025 2024 Discontinued cetirizine (zyrTEC) 10 MG tablet TAKE 1 TABLET BY MOUTH EVERY DAY 90 tablet 025 2024 Discontinued Xarelto 20 MG tablet TAKE 1 TABLET BY MOUTH EVERY DAY 30 tablet 1 025 2024 Discontinued Active Problems Problem Noted Date Diagnosed Date Drug-induced constipation 07/06/2024 Assessment & Plan (07/06/2024 10:21 AM EDT): Secondary to Mounjaro likely Recommended he start Miralax daily for 5 days then as-needed Keep water intake high Type 2 diabetes mellitus wit hout complication, with long-term current use of insulin 03/08/2021 Overview (01/19/2024): Currently prescribed Lantus 45U nightly plus Novolog 4-5U 2-3 times daily with meals (usually only eating 2 meals per day). East when he wakes up around 11PM, then again around 9-10AM when he gets home. Checking sugars fasting in AM running 95-130 Assessment & Plan (06/03/2024 11:16 AM EDT): He stopped mealtime insulin completely and has decreased his Lantus down to 15- 20U at night Sounds like he is having some samodji phenomenon overnight with AM glucose rebounding >200 after dipping under 70 overnight Recommend he decrease his Lantus to 5U at night and monitor with his CGM Assessment & Plan (04/29/2024 10:35 AM EDT): Mounjaro increased from 7.5 to 10 mg in February. Lantus is written as 70 units nightly, but has been able to come down to 45 units nightly over the last year with Mounjaro and actually has completely stopped the long-acting insulin. Still taking NovoLog 10-15 units with meals, Jardiance 25 mg. Using freestyle art 3 -Recommended that he stop the mealtime insulin entirely as his glucose has been very well controlled Assessment & Plan (01/19/2024 11:32 AM EST): Continue Mounjaro 7.5mg, Jardiance 25mg, Lantus 45U, Novolog 4-5U with meals Assessment & Plan (08/04/2023 3:31 PM EDT): Increase Mounjaro to 5mg weekly, doing well I think some of his epigastric discomfort is the slow gastric emptying. 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 power tool repair technician Start Ozempic 0.25mg, increase to 0.5mg weekly Assessment & Plan (03/14/2023 9:54 AM EST): A1C today is 8.5, increased from 8.3 in September - roughly stable over the past year. Recommended patient discuss prandial insulin protocol with his PCP on follow-up as it sounds like he is using more than is prescribed at times. Discussed this may increased his risk of hypoglycemia. Continue Lantus 70 units - refilled medication. Encouraged low carbohydrate diet and routine exercise regimen as tolerated. Counseled patient to complete outstanding labs from December. He states he will return Thursday next week for fasting measurement. Defer changes in medications to Dr. Chávez on follow-up. Assessment & Plan (12/26/2022 2:57 PM EST): Increase Lantus to 70U, Novolog 30-45U with meals Primary hypertension 03/08/2021 Overview (06/02/2022): Amlodipine 10, chlorthalidone 25, lisinopril 40, metoprolol XL 25mg Assessment & Plan (06/03/2024 11:19 AM EDT): Lost weight, BP low. Recommend stopping chlorthalidone 25mg, recheck labs and monitor BP Assessment & Plan (03/14/2023 9:53 AM EST): BP is elevated today - 150/70. Patient reports most of the time it is controlled in the office. Recommended patient begin home monitoring again, write down readings and bring them in next visit. Continue current medications at his time. RTC in 2 weeks for hypertension follow-up with his primary care provider. Assessment & Plan (06/02/2022 4:21 PM EDT): Doing well, at goal Encounters Date Type Department Care Team Description 09/15/2024 Telephone [facility] [address] [place] [address] Mohit Chávez, DO Med Refill 09/12/2024 Refill [facility] [address] [place] [address] Mohit Chávez, DO 09/07/2024 Refill [facility] [address] [place] [phone] Mohit Chávez, DO Chronic pain of both knees 09/06/2024 Refill [facility] [address] [place] [phone] Mohit Chávez, DO 09/02/2024 Refill [facility] [address] [place] [phone] Mohit Chávez, DO Chronic pain of both knees 08/22/2024 Refill [facility] [address] [place] [phone] Mohit Chávez, DO 08/16/2024 Telephone [facility] [address] [place] [address] Mohit Chávez, DO FAX 08/08/2024 Refill [facility] [address] [place] [phone] Mohit Chávez, DO Grief reaction 08/02/2024 Telephone [facility] [address] [place] [phone] Mohit Chávez, 08/01/2024 1:00 PM EDT Office Visit [facility] [address] [place] [address] Mohit Chávez, Sprain of other part of right shoulder region, initial encounter (Primary Dx); Type 2 diabetes mellitus without complication, with long-term current use of insulin; Acute pain of right shoulder 08/01/2024 Travel 07/29/2024 Refill [facility] [address] [place] [address] Mohit Chávez, Primary hypertension 07/21/2024 Refill [facility] [address] [place] [address] Mohit Chávez, DO 07/19/2024 Refill [facility] [address] [place] [phone] Mohit Chávez, Type 2 diabetes mellitus without complication, with long-term current use of insulin 07/08/2024 Refill [facility] [address] [place] [phone] Mohit Chávez, DO 07/07/2024 Refill [facility] [address] [place] [phone] Mohit Chávez, DO 07/06/2024 10:30 AM EDT Lab [facility] [address] [place] [phone] Elevated serum creatinine 07/06/2024 10:15 AM EDT Office Visit [facility] [address] [place] [phone] Mohit Chávez, Type 2 diabetes mellitus without complication, with long-term current use of insulin (Primary Dx); Drug-induced constipation; Colon cancer screening; Primary hypertension 07/06/2024 Travel 07/05/2024 Refill [facility] [address] [place] [address] Mohit Chávez, DO Type 2 diabetes mellitus without complication, with long-term current use of insulin from Last 3 Months Immunizations Immunization Administration Dates Next Due Flu Vaccine Intradermal Quad 18-64YR 11/26/2019, 10/22/2018 Flu Vaccine Quad PF >36MO 02/17/2021,10/18/2016 Flublok 18+yrs 11/26/2019,10/22/2018 Fluzone >6mos 12/01/2023 Fluzone (or Fluarix & Flulav al for VFC) >6mos 12/12/2022,02/17/2021,10/18/2016 Hepatitis A 03/04/2019,02/22/2018 Hepatitis B Adult/Adolescent IM 11/26/2019,12/24,04/16/2018 Influenza, Unspecified 12/02/2017 Pneumococcal Conjugate 20-Valent (PCV20) 022 Pneumococcal Polysaccharide (PPSV23) 04/16/2018 Shingrix 09/10/2020,06/08/2020 Tdap 09/10/2020 flucelvax quad pfs =>4 YRS 11/13/2021 Family History Medical History Relation Name Comments Hyperlipidemia Father Diabetes Mother Relation Name Status Comments Father Mother Social History Tobacco Use Types Packs/Day Years Used Date Smoking Tobacco: Never Passive Smoke Exposure: Never Smokeless Tobacco: Never Tobacco Cessation:Counseling Given: No Alcohol Use Standard Drinks/Week Comments Never 0 [...] Sign Reading Time Taken Comments Blood Pressure 125/75 08/01/2024 12:44 PM EDT Pulse 68 08/01/2024 12:44 PM EDT Temperature 36.2 C (97.2 F) 10/27/2023 2:52 PM EDT Respiratory Rate 20 10/27/2023 2:52 PM EDT Oxygen Saturation 96% 08/01/2024 12:44 PM EDT Inhaled Oxygen Concentration - - Weight 99.8 kg (220 lb) 08/01/2024 12:44 PM EDT Height 175.3 cm (5' 9.02 ) 08/01/2024 12:44 PM E DT Body Mass Index 32.47 08/01/2024 12:44 PM EDT Plan of Treatment Upcoming Encounters Date Type Department Care Team (Late st Contact Info) Description 11/01/2024 1:00 PM EDT Office Visit [facility] [address] [place] [address] Mohit Chávez, [address] [facility] [place] [address] Health Maintenance Due Date Last Done Comments DIABETIC FOOT EXAM 1970 COLOGUARD 2005 COLON CANCER SCREENING 5 YEA R SIGMOIDOSCOPY 2005 COLONOSCOPY 2005 [address] CANCER SCREENING 2005 CT COLONOGRAPHY 2005 FECAL OCCULT BLOOD TEST 2005 FIT Testing (1 year) 2005 ANNUAL PHYSICAL 03/08/2021 HEPATITIS C SCREENING 03/08/2021 COVID-19 Vaccine (3 - 2023-2 5 season) 2023 12/28/2020, 04/25/2020 INFLUENZA VACCINE 11/16/2024 12/01/2023, , 11/13/2021, Additional history exists DIABETIC EYE EXAM 03/01/2025 03/01/2024, , 03/13/2023, Additional history exists HEMOGLOBIN A1C 03/22/2025 09/19/2024, 04/16, 03/04/2024, Additional history exists LIPID PANEL 04/29/2025 04/29/2024, 03/19, 09/10/2020, Additional history exists URINE MICROALBUMIN-CREATININ E RATIO (uACR) 04/29/2025 04/29/2024 TDAP/TD VACCINES (2 - Td or Tdap) 09/10/2030 021 ZOSTER VACCINE Completed 09/10/2020, 06/08/2020 Pneumococcal Vaccine 50+ Completed 022, 04/16/2018, 11/22/2015 Procedures Procedure Name Priority Date/Time Associated Diagnosis Comments UREA NITROGEN, URINE Routine 07/06/2024 10:34 AM EDT Elevated serum creatinine OSMOLALITY, URINE Routine 07/06/2024 10: 34 AM EDT Elevated serum creatinine OSMOLALITY Routine 07/06/2024 10:34 AM EDT Elevated serum creatinine SODIUM, URINE, RANDOM Routine 07/06/2024 10:34 AM EDT Elevated serum creatinine BASIC METABOLIC PANEL Routine 07/06/2024 10:34 AM EDT Elevated serum creatinine CREATININE URINE RANDOM (KIDNEY FUNCTION) GFR COMPONENT Routine 07/06/2024 10:34 AM EDT Elevated serum creatinine HEMOGLOBIN A1C Routine 04/29/2024 10:50 AM EDT Preventative health care Screening for endocrine disorder LIPID PANEL Routine 04/29/2024 10:50 AM EDT Screening for hyperlipidemia Preventative health care SCANNED - EYE EXAM 03/01/2024 from Last 3 Months or Most Recently Relevant to Health Maintenance Results * Urea Nitrogen, Urine - Urine, Clean Catch (07/06/2024 10:34 AM EDT) Urea Nitrogen, Urine 326 mg/dL 07/06/2024 8:04 PM EDT [facility] Urine Urine specimen obtained by clean catch procedure / Unknown Collection / Unknown 07/06/2024 10:34 AM EDT 07/06/2024 10:34 AM EDT [facility] - 07/06/2024 8:04 PM EDT Reference intervals for random urine have not been established. Clinical usage is dependent upon physician's interpretation in combination with other laboratory tests. us Mohit Chávez DO URINE ORDERABLES Final Res ult Performing Organization Address [facility] de Phone Number [facility]
[address] [place] [address], * Sodium, Urine, Random - Urine, Clean Catch (07/06/2024 10:34 AM EDT) Sodium, Urine 106 mmol/L 07/06/2024 8:04 PM EDT [facility] Urine Urine specimen obtained by clean catch procedure / Unknown Collection / Unknown 07/06/2024 10:34 AM EDT 07/06/2024 10:34 AM EDT [facility] - 07/06/2024 8:04 PM EDT Reference intervals for random urine have not been established. Clinical usage is dependent upon physician's interpretation in combination with other laboratory tests. us Mohit Chávez DO URINE ORDERABLES Final Res ult Performing Organization Address [facility] de Phone Number [facility]
[address] [place] [address], * Osmolality, Urine - Urine, Clean Catch (07/06/2024 10:34 AM EDT) Osmolality, Urine 638 mOsm/kg 07/06/2024 8:32 PM EDT [facility] Urine Urine specimen obtained by clean catch procedure / Unknown Collection / Unknown 07/06/2024 10:34 AM EDT 07/06/2024 10:34 AM EDT [facility] - 07/06/2024 8:32 PM EDT Osmo Normal Reference Ranges: Random: 50-1400 mOsm/kg H2O, depending on fluid intake. Random: >850 mOsm/kg H20, after 12 hour fluid restriction. 24 Hour: 300-900 mOsm/kg H2O. us Mohit Chávez DO URINE ORDERABLES Final Res ult Performing Organization Address [facility] Phone Number [facility]
[address] [place] [address], * Creatinine Urine Random (kidney function) GFR component - Urine, Clean Catch (07/06/2024 10:34 AM EDT) Creatinine, Urine 72.3 mg/dL 07/06/2024 8:04 PM EDT [facility] Urine Urine specimen obtained by clean catch procedure / Unknown Collection / Unknown 07/06/2024 10:34 AM EDT 07/06/2024 10:34 AM EDT [facility] - 07/06/2024 8:04 PM EDT Reference intervals for random urine have not been established. Clinical usage is dependent upon physician's interpretation in combination with other laboratory tests. us Mohit Chávez DO URINE ORDERABLES Final Res ult Performing Organization Address [facility] Phone Number [facility]
[address] [place] [address], [place] [phone] * Osmolality, Serum (07/06/2024 10:34 AM EDT) Osmolality 296 280 - 301 mOsm/kg 07/06/2024 7:39 PM EDT [facility] Blood Venipuncture / Unknown 07/06/2024 10:34 AM EDT 07/06/2024 10:34 AM EDT us Mohit Chávez DO LAB BLOOD ORDERABLES Final Result Performing Organization Address [facility]/ZIP Co de Phone Number [facility]
[address] [place] [address], * (ABNORMAL) Basic Metabolic Panel (07/06/2024 10:34 AM EDT) Glucose 141(H) 65 - 99 mg/dL 07/06/2024 8:15 PM EDT [facility] BUN 17 8 - 23 mg/dL 07/06/2024 8:15 PM EDT [facility] Creatinine 1.08 0.76 - 1.27 mg/dL 07/06/2024 8:15 PM EDT [facility] Sodium 137 136 - 145 mmol/L 07/06/2024 8:15 PM EDT [facility] Potassium 4.7 3.5 - 5.2 mmol/L 07/06/2024 8:15 PM EDT [facility] Chloride 100 98 - 107 mmol/L 07/06/2024 8:15 PM EDT [facility] CO2 22.8 22.0 - 29.0 mmol/L 07/06/2024 8:15 PM EDT [facility] Calcium 9.5 8.6 - 10.5 mg/dL 07/06/2024 8:15 PM EDT [facility] BUN/Creatinine Ratio 15.7 7.0 - 25.0 07/06/2024 8:15 PM EDT [facility] Anion Gap 14.2 5.0 - 15.0 mmol/L 07/06/2024 8:15 PM EDT [facility] eGFR 76.6 >60.0 mL/min/1.7 3 07/06/2024 8:15 PM EDT [facility] Blood Venipuncture / Unknown 07/06/2024 10:34 AM EDT 07/06/2024 10:34 AM EDT [facility] - 07/06/2024 8:15 PM EDT GFR Categories in Chronic Kidney Disease (CKD) GFR Category GFR (mL/min/1.73) Interpretation G1 90 or greater Normal or high (1) G2 60-89 Mild decrease (1) G3a 45-59 Mild to moderate decrease G3b 30-44 Moderate to severe decrease G4 15-29 Severe decrease G5 14 or less Kidney failure (1)In the absence of evidence of kidney disease, neither GFR category G1 or G2 fulfill the criteria for CKD. eGFR calculation 2020 CKD-EPI creatinine equation, which does not include race as a factor Mohit Chávez DO LAB BLOOD ORDERABLES Final Result Performing Organization Address [facility] Co de Phone Number [facility]
[address] [place] [address], * (ABNORMAL) Hemoglobin A1c (04/29/2024 10:50 AM EDT) Pathologist [facility] Hemoglobin A1C 6.50(H) 4.80 - 5.60 % 04/29/2024 7:12 PM EDT [facility] Blood Venipuncture / Unknown 04/29/2024 10:50 AM EDT 04/29/2024 10:50 AM EDT Narrative [facility] - 04/29/2024 7:12 PM EDT Hemoglobin A1C Ranges: Increased Risk for Diabetes 5.7% to 6.4% Diabetes >= 6.5% Diabetic Goal < 7.0% us Mohit Chávez DO LAB BLOOD ORDERABLES Final Result Performing Organization Address [facility] de Phone Number [facility]
[address] [place] [address], * (ABNORMAL) Lipid Panel (04/29/2024 10:50 AM EDT) Total Cholesterol 138 0 - 200 mg/dL 04/29/2024 8:11 PM EDT [facility] Triglycerides 139 0 - 150 mg/dL 04/29/2024 8:11 PM EDT [facility] HDL Cholesterol 38(L) 40 - 60 mg/dL 04/29/2024 8:11 PM EDT [facility] LDL Cholesterol 75 0 - 100 mg/dL 04/29/2024 8:11 PM EDT [facility] VLDL Cholesterol 25 5 - 40 mg/dL 04/29/2024 8:11 PM EDT [facility] LDL/HDL Ratio 1.90 04/29/2024 8:11 PM EDT [facility] Blood Venipuncture / Unknown 04/29/2024 10:50 AM EDT 04/29/2024 10:50 AM EDT Narrative [facility] - 04/29/2024 8:11 PM EDT Cholesterol Reference Ranges (U.S. Department of Health and Human Services ATP III Classifications) Desirable <200 mg/dL Borderline High 200-239 mg/dL High Risk >240 mg/dL Triglyceride Reference Ranges (U.S. Department of Health and Human Services ATP III Classifications) Normal <150 mg/dL Borderline High 150-199 mg/dL High 200-499 mg/dL Very High >500 mg/dL HDL Reference Ranges (U.S. Department of Health and Human Services ATP III Classifications) Low <40 mg/dl (major risk factor for CHD) High >60 mg/dl ('negative' risk factor for CHD) LDL Reference Ranges (U.S. Department of Health and Human Services ATP III Classifications) Optimal <100 mg/dL Near Optimal 100-129 mg/dL Borderline High 130-159 mg/dL High 160-189 mg/dL Very High >189 mg/dL LDL is calculated using the NIH LDL-C calculation. us Mohit Chávez DO LAB BLOOD ORDERABLES Final Result [facility]
[address] [place] [address], * EYE EXAM SCANNED (03/01/2024) Anatomical Region Laterality Modality Other us Mohit Chávez DO CHART REVIEW TABS Final Result from Last 3 Months or Most Recently Relevant to Health Maintenance Insurance [employer] [facility] Care Teams Sales Order Specialist Relationship Specialty Start Date End Date Mohit Chávez DO [address] [place] [address] PCP - General Family Medicine 03/08/21
--- OUTSIDE RECORDS SUMMARY | 2024-10-02 16:04 | XMS_ITS | Encounter Summary ---
Author Organization [facility] Address [address] [place] [address] Care Team Providers Care Radio Repairman Name Role Phone Mohit Chávez DO Primary Care Provider [phone] Encounter Details Date Type Department Care Team (Latest Contact Info) Description 09/19/2024 Travel Social History Tobacco Use Types Packs/Day Years [...] [facility] [address], [address] [place] [address] Vasu Yanez, SHAYNA [address] [place] [address] 03/22/2025 3:40 PM EST Office Visit [facility] [address] [place] [address] Delicia Miner, ALEKSEY [address] [place] [address] documented as of this encounter Visit Diagnoses Not on filedocumented in this encounter Additional Health Concerns Assessment Noted Time A fall risk assessment has been complete d for the patient 08/29/2024 2:03 PM EDT A Body Mass Index follow-up plan has been documented for the patient 09/19/2024 4:10 PM EDT documented as of this encounter Care Teams Radio Repairman Relationship Specialty Start Date End Date Mohit Chávez DO [address] [place] [address] PCP - General 06/06/24 documented as of this encounter
--- OUTSIDE RECORDS SUMMARY | 2024-10-02 16:04 | XMS_ITS | Clinical Summary ---
Author Organization [facility] Address [address] [place] [address] Phone Care Team Providers Care Parachute Folder Name Role Phone Juanpablo Cortes OD Unavailable [phone] Allergies No known active allergies Medications BETA CAROTENE ORAL Take by mouth. Active SAW PALMETTO XTR/ZINC PICOLIN (SAW PALMETTO EXTRACT ORAL) Take by mouth. A ctive CALCIUM CARBONATE/VITAMIN D3 (CALCIUM 500 + D ORAL) Take by mouth. Activ e fish oil omega 3-dha-epa 300-1,000 mg Oral Capsule, Delayed Release(E.C.) Take 2 g by mouth daily. Active ASCORBATE CALCIUM (VITAMIN C ORAL) Take by mouth. Active Coenzyme Q10 100 mg Oral Capsule Take by mouth. Active BEE POLLEN ORAL Take by mouth. Active ROYAL JELLY ORAL Take by mouth. Active AMINO ACIDS/CHROMIUM (CHROMIMIN ORAL) Take by mouth. Active MILK THISTLE ORAL Take by mouth. Active FLAXSEED OIL ORAL Take by mouth. Active Green Tea Sidney Extract (GREEN TEA) Oral Capsule Take by mouth. Active CINNAMON BARK (CINNAMON ORAL) Take by mouth. Active GARLIC ORAL Take by mouth. Act benjamín lactobacillus rhamnosus, GG, (CULTURELLE) 10 billion cell Oral Capsule Take 1 Cap by mouth daily. Active LYSINE ORAL Take by mouth. Act benjamín sildenafiL, pulm.hypertension, (REVATIO) 20 mg Oral TabletIndications: ED (erectile dysfunction) of organic origin Take 1-4 tablets by mouth as needed for ED. 50 Tab 06/14/19 20 Active naproxen (NAPROSYN) 500 mg Oral Tablet TAKE ONE TABLET BY MOUTH TWICE DAILY --TAKE WITH FOOD-- 60 Tab 1 09/29/19 20 Active BD ULTRA-FINE MINI PEN NEEDLE 31 [facility] x 3/[facility] with injections FOUR TIMES DAILY DIRECTED 05/03/19 Active fenofibrate micronized (LOFIBRA) 134 mg Oral CapsuleIndications :Type 2 diabetes mellitus with hyperlipidemia (HCC) TAKE ONE CAPSULE BY MOUTH EVERY DAY IN THE MORNING BEFORE breakfast 90 Cap 2 07/06/19 Active XARELTO 20 mg Oral TabletIndications: History of pulmonary embolism TAKE ONE TABLET BY MOUTH EVERY DAY 90 Tab 2 07/06/19 21 Active LANTUS SOLOSTAR U-100 INSULIN 100 unit/mL (3 mL) SubQ Insulin PenIndications:Typ e 2 diabetes mellitus with hyperlipidemia (HCC) inject 80 units SUBCUTANEOUSLY TWICE DAILY 60 mL 2 09/05/19 Active Blood-Glucose Meter [facility] MiscIndications:Ty pe 2 diabetes mellitus with hyperlipidemia (HCC) 1 Each by [facility].(Non-Drug; Combo Route) route. Nautilus BiotechTouch Ultra 2 meter. Use to check blood sugars twice daily. E11.9 Active sertraline (ZOLOFT) 25 mg Oral TabletIndications: Depression, unspecified depression type Take 1 Tab by mouth daily. 30 Tab 5 09/11/19 Active olopatadine (PATADAY) 0.2 % Opht DropsIndications:A llergic conjunctivitis, bilateral Place 1 Drop into both eyes daily. 5 mL 5 09/11/19 Active Blood-Glucose Meter [facility] MiscIndications:De pression, unspecified depression type One Touch Verio Reflect. Use to check blood sugars twice a day. e11.9 1 Each 09/11/19 21 Active Blood Sugar Diagnostic [facility] StripIndications:D epression, unspecified depression type One touch verio Reflect strips. Use to test blood sugars five times daily. e11.9 1 box 11 09/12/19 21 Active insulin lispro (HUMALOG KWIKPEN INSULIN) 100 unit/mL SubQ Insulin PenIndications:Typ e 2 diabetes mellitus with hyperlipidemia (HCC) INJECT 45 UNITS SUBCUTANEOUSLY THREE TIMES DAILY BEFORE MEALS DIRECTED 135 mL 10/13/19 21 Active lisinopriL (PRINIVIL;ZESTRIL) 40 mg Oral TabletIndications: Essential hypertension TAKE ONE TABLET BY MOUTH EVERY DAY 30 Tablet 2 11/27/19 Active amLODIPine (NORVASC) 10 mg Oral TabletIndications: Essential hypertension TAKE ONE TABLET BY MOUTH EVERY DAY 30 Tablet 2 11/27/19 Active chlorthalidone (HYGROTEN) 25 mg Oral TabletIndications: Essential hypertension TAKE ONE TABLET BY MOUTH EVERY DAY 30 Tablet 2 11/27/19 Active omeprazole (PRILOSEC) 40 mg Oral Capsule, Delayed Release(E.C.)Indic ations:Gastroesoph ageal reflux disease without esophagitis TAKE ONE CAPSULE BY MOUTH EVERY DAY 30 Capsule 2 11/27/19 Active BD ULTRA-FINE MINI PEN NEEDLE 31 gauge x 05/01 Misc NeedleIndications: Type 2 diabetes mellitus with hyperlipidemia (HCC) USE with injections FOUR TIMES DAILY DIRECTED 100 Each 2 11/27/19 Active ONETOUCH DELICA PLUS LANCET 33 gauge Misc Misc USE DIRECTED 5 times a DAY TO test blood glucose level 100 Each 5 01/08/20 Active cetirizine (ZYRTEC) 10 mg Oral TabletIndications: Seasonal allergic rhinitis, unspecified trigger TAKE ONE TABLET BY MOUTH EVERY DAY 30 Tablet 5 01/10/20 21 Active rosuvastatin (CRESTOR) 10 mg Oral TabletIndications: Type 2 diabetes mellitus with hyperlipidemia (HCC) TAKE ONE TABLET BY MOUTH EVERY DAY 90 Tablet 1 01/10/20 21 Active fluconazole (DIFLUCAN) 150 mg Oral TabletIndications: Oral thrush Take 1 Tablet by mouth daily. for 3 days 3 Tablet 2 01/17/20 Active Additional Information Patient not taking.Reason: Pt electing to not take the medication, Reported on 05/01/2021 acyclovir (ZOVIRAX) 400 mg Oral TabletIndications: Genital herpes simplex, unspecified site Take 1 Tablet by mouth every 6 hours. 120 Tablet 2 01/17/20 Active glipiZIDE (GLUCOTROL) 10 mg Oral TabletIndications: Type 2 diabetes mellitus without complication, with long-term current use of insulin (HCC) TAKE ONE TABLET BY MOUTH EVERY DAY 30 Tablet 02/12/20 21 Active JARDIANCE 25 mg Oral TabletIndications: Type 2 diabetes mellitus with hyperlipidemia (HCC) TAKE ONE TABLET BY MOUTH EVERY DAY 30 Tablet 02/12/20 21 Active metoprolol succinate (TOPROL-XL) 25 mg Oral Tablet Sustained Release 24 hr Take 1 Tablet by mouth daily. 30 Tablet 02/13/20 21 Active Active Problems Problem Noted Date Diagnosed Date Allergic conjunctivitis of both eyes 03/07/2021 Assessment & Plan (03/07/2021 4:23 PM EST): Can continue pataday prn Keratoconjunctivitis sicca o f both eyes due to decreased tear production 03/07/2021 Assessment & Plan (04/18/2021 4:31 PM EST): Discussed the use of warm compresses and lid hygiene. Also discussed use of artificial tears during the day and gel at night. Discussed findings, options and risks with patient. He would like to start xiidra. Assessment & Plan (03/07/2021 4:26 PM EST): Discussed the use of warm compresses and lid hygiene. Also discussed use of artificial tears during the day and gel at night. Will start pso billy bid for 1 week. Age-related nuclear cataract of right eye 2020 Assessment & Plan (04/18/2021 4:30 PM EST): Patient states that activities of daily living [...] Patient would like to proceed with standard. Assessment & Plan (09/24/2020 3:53 PM EDT): Patient states that activities of daily living have reduced significantly enough to warrant surgery. Discussed risks and benefits of surgery and patient would like to proceed with cataract surgery consultation. Referral for cataract surgery evaluation with Dr. Davidson. Type 2 diabetes mellitus without retinopathy 10/2020 Assessment & Plan (09/24/2020 3:54 PM EDT): Discussed need to continuously control blood sugar and blood pressure. Stressed the importance of continuing to follow the advice of patient's PCP and other providers coordinating care. Patient has no evidence of diabetic retinopathy at this time and will follow up for next diabetic eye exam. Patient was instructed to return immediately with any changes in vision. Suspected glaucoma of both eyes 09/24/2020 Assessment & Plan (09/24/2020 3:53 PM EDT): Patient with risk factors for glaucoma. Will [...] Will need further testing following cataract surgery. Epiretinal membrane (ERM) of left eye 09/24/2020 Assessment & Plan (09/24/2020 3:54 PM EDT): Pt educated on findings, mildly affecting VA if any. Will monitor for changes. Type 2 diabetes mellitus without complication Essential hypertension 06/10/2016 Hyperlipidemia with target LDL less than 100 Pulmonary embolism Immunizations Immunization Administration Dates Next Due Hepatitis A, Adult 03/04/2019,02/22/2018 Hepatitis B, Adult 11/26/2019,12/24/2018, 019 Influenza Vaccine Quadrivalent PF 10/18/2016 Influenza Vaccine, Unspecified Formulation 12/02 Influenza Virus Vaccine Quad rivalant, Flublok 11/26/2019,10/22/2018 Anjelica SARS-CoV-2 Vaccine 04/24/2020 Pneumococcal Polysaccharide 23 Valent 04/16/2018 Tdap 09/10/2020 Zoster Recombinant 09/10/2020,06/08/2020 Surgical History Surgery Date Site/Laterality Comments TUMOR REMOVAL fatty tumor DENTAL SURGERY wisdom teeth Medical History Medical History Date Comments H/O breast biopsy pt states had a knot in left breast at age 19 Pulmonary embolism (HCC) Hypertension Hyperlipidemia Diabetes mellitus (HCC) Thrush Heartburn Stress Family History Medical History Relation Name Comments Heart Disease Father Diabetes Mother Breast Cancer Sister 1 Diabetes Sister 1 Diabetes Sister 2 Anesth Problems Neg Hx Relation Name Status Comments Father Mother Sister 1 Sister 2 Social History Tobacco Use Types Packs/Day Years Used Date Smoking Tobacco: Never Smokeless Tobacco: Never Tobacco Cessation:Counseling Given: No Alcohol Use Standard Drinks/Week Comments Never 0 (1 standard drink = 0.6 oz pur e alcohol) PHQ-2 Answer Date Recorded PHQ-2 Total Score 0 06/08/2020 Sex and Gender Information Value Date Recorded Sex Assigned at Not on file Legal Sex Male 9:28 AM EDT Gender Identity Not on file Sexual Orientation Not on file Obstetrics History Last Filed Vital Signs Vital Sign Reading Time Taken Comments Blood Pressure 140/70 09/10/2020 1:22 PM EDT Pulse 82 05/05/2018 4:23 PM EDT Temperature 36.7 C (98.1 F) 09/10/2020 1:22 PM EDT Respiratory Rate - - Oxygen Saturation 91% 05/05/2018 4:23 PM EDT Inhaled Oxygen Concentration - - Weight 116.1 kg (256 lb) 05/01/2021 9:04 AM EDT Height 175.3 cm (5' 9 ) 05/01/2021 9:04 AM EDT Body Mass Index 37.8 05/01/2021 9:04 AM EDT Plan of Treatment Health Maintenance Due Date Last Done Comments Annual Wellness Exam 1963 Kidney Health: uACR 1978 Cologuard 2005 Colon Cancer Screening 2005 Colonoscopy 2005 FIT 2005 Sigmoidoscopy 2005 Virtual Colonography 2005 Pneumococcal Vaccine 50+ (2 of 2 - PCV) 04/17/2019 04/16/2018 RSV or 60+ (1 - Risk 60-74 years 1-dose series) 2020 Hemoglobin A1c 09/05/2021 03/08/2021, 08/17, 11/26/2019, Additional history exists Kidney Health: eGFR 09/10/2021 09/10/2020, 11/26/2019, 02/22/2018, Additional history exists Lipids 09/10/2021 09/10/2020, 11/16, 02/22/2018, Additional history exists Diabetic Eye Exam 09/10/2022 09/10/2020 COVID-19 Vaccine (2 - Novavax series) 10/18/2023 04/24/2020 Influenza Vaccine (#1) 2024 2, 11/26/2019, 10/22/2018, Additional history exists DTaP/TDaP/Td (2 - Td or Tdap) 09/10/2030 09/10/2020 Hepatitis C Screening Completed 09/05/2016, 017 Hepatitis B Vaccine Completed 11/26/2019, 12/24/2018, 04/16/2018 Zoster Completed 09/10/2020, 06/08/2020 Meningococcal B Vaccine Aged Out No l onger eligible based on patient's age to complete this topic Goals Goal Patient Goal Type Associated Problems Recent Progress Patient-Stated? Author Blood Pressure < 140/90 Blood Pressure 140/70(2020 1:22 PM EDT) No Khang Brown MD Maintain a healthy diet, exercise regularly and maintain an ideal body weight General No Jannette Mendez CCMA BMI (Calculated) < 30 General 37.9(05/02/19 9:04 AM EDT) No Khang Brown MD HEMOGLOBIN A1C < 7.0 Result Component 9.1( 1:54 PM EDT) No Khang Brown MD Procedures Procedure Name Priority Date/Time Associated Diagnosis Comments COMPREHENSIVE METABOLIC PANEL Routine 09/10/2020 1:54 PM EDT Unexplained weight loss LIPID SCREEN Routine 09/10/2020 1:54 PM EDT Unexplained weight loss HEMOGLOBIN A1C Routine 09/10/2020 1:54 PM EDT Unexplained weight loss HCV ANTIBODY SCREEN W/ REFLEX Routine 09/05/2016 9:11 AM EDT Need for hepatitis C screening test from Last 3 Months or Most Recently Relevant to Health Maintenance Results * (ABNORMAL) HEMOGLOBIN A1C (09/10/2020 1:54 PM EDT) Hgb A1C 9.1(H) 4.2 - 5.6 % 09/10/2020 8:52 PM EDT PREFERRED [facility], [facility] Est. Avg Glucose 214 mg/dL 09/10/2020 8:52 PM EDT [facility] Blood Venipuncture / Unknown 09/10/2020 1:54 PM EDT 09/10/2020 1:54 PM EDT Narrative PREFERRED [facility] - 09/10/2020 8:52 PM EDT REFERENCE RANGE: Normal: 4.0-5.6% Pre-diabetes: 5.7-6.4% Provisional diagnosis of diabetes: >6.4% Hgb F>10% and anything which shortens red cell survival, such as hemolytic anemia, or unstable hemoglobin variants such as HbSS, HbSC, or HbCC, will lower the HbA1c value associated with a given level of glycemic control. us Sammy Biggs INTERVENTIONAL RADIOLOGIST CHEMISTRY ORDERABLES Final R esult [facility] [address] [address] , [place] [address] * (ABNORMAL) LIPID SCREEN (09/10/2020 1:54 PM EDT) Cholesterol 172 <200 mg/dL 09/10/2020 8:13 PM EDT [facility] Comment: < 200 Desirable 200 - 239 Borderline High >= 240 High Triglyceride 316(H) <150 mg/dL 09/10/2020 8:13 PM EDT [facility] Comment: < 150 Normal 150 - 199 Borderline High 200 - 499 High >= 500 Very High HDL 30(L) >=40 mg/dL 09/10/2020 8:13 PM EDT [facility] Comment: > 60 Optimal 40 - 60 Acceptable < 40 Low LDL Calculated 79 <100 mg/dL 09/10/2020 8:13 PM EDT [facility] Comment: < 100 Optimal 100 - 129 Near or above optimal 130 - 159 Borderline High 160 - 189 High >= 190 Very High Non-HDL-C Calculated 142(H) <=129 mg/dL 09/10/2020 8:13 PM EDT [facility] Comment: <130 Desirable 130-159 Above Desirable 160-189 Borderline High 190-219 High >= 220 Very High Fasting Specimen? No None 021 8:13 PM EDT [facility] Blood Venipuncture / Unknown 09/10/2020 1:54 PM EDT 09/10/2020 1:54 PM EDT us Sammy Biggs INTERVENTIONAL RADIOLOGIST CHEMISTRY ORDERABLES Final R esult [facility] [address] [address], [place] [address] [facility] [address] [place] [address] * (ABNORMAL) COMPREHENSIVE METABOLIC PANEL (09/10/2020 1:54 PM EDT) Sodium 137 136 - 145 mmol/L 09/10/2020 8:13 PM EDT [facility] Potassium 4.2 3.5 - 5.0 mmol/L 09/10/2020 8:13 PM EDT [facility] Chloride 102 98 - 107 mmol/L 09/10/2020 8:13 PM EDT [facility] Total CO2 23 22 - 29 mmol/L 09/10/2020 8:13 PM EDT [facility] Anion Gap 12 7 - 16 mmol/L 09/10/2020 8:13 PM EDT [facility] Calcium 8.9 8.8 - 10.4 mg/dL 09/10/2020 8:13 PM EDT [facility] Glucose Lvl 267(H) 82 - 100 mg/dL 09/10/2020 8:13 PM EDT [facility] BUN 17 8 - 23 mg/dL 09/10/2020 8:13 PM EDT [facility] Creatinine 1.01 0.67 - 1.30 mg/dL 09/10/2020 8:13 PM EDT [facility] Albumin 4.0 3.2 - 4.6 gm/dL 09/10/2020 8:13 PM EDT [facility] Total Protein 6.7 6.4 - 8.3 gm/dL 09/10/2020 8:13 PM EDT [facility] Bili Total 0.2 0.1 - 1.4 mg/dL 09/10/2020 8:13 PM EDT [facility] ALT 29 <=41 U/L 09/10/2020 8:13 PM EDT [facility] AST 25 <=40 U/L 09/10/2020 8:13 PM EDT [facility] Alk Phos 68 40 - 129 U/L 09/10/2020 8:13 PM EDT [facility] GFR Afr Am 93 >=60 mL/min/1.7 3 m2 09/10/2020 8:13 PM EDT [facility] GFR Non Afr Am 80 >=60 mL/min/1.7 3 m2 09/10/2020 8:13 PM EDT [facility] Comment: This estimated GFR was calculated using CKD-EPI equation which is modified based on ethnicity for Non Americans and Americans. Both results are reported since it is not always possible to determine the patient's ethnicity. This equation should only be used for individuals 18 and older. It has not been validated for use with the elderly (>70 years), women, or in some racial or ethnic subgroups, such as Hispanics. The equation will be less accurate in people with differences in nutritional status or muscle mass. Blood Venipuncture / Unknown 09/10/2020 1:54 PM EDT 09/10/2020 1:54 PM EDT Sammy Biggs APRN CHEMISTRY ORDERABLES Final R esult [facility] [address] [facility] , [place] [address] [facility] [address] [place] [id number] * HEPATITIS C ANTIBODY - SCREENING (09/05/2016 9:11 AM EDT) Hep C Ab Negative Negative [facility] Blood specimen (specimen) 09/05/2016 9:11 AM EDT 09/05/2016 3:29 PM EDT Sammy A Biggs INTERVENTIONAL RADIOLOGIST HEMATOLOGY ORDERABLES Final Result [facility] [address] [address] from Last 3 Months or Most Recently Relevant to Health Maintenance Insurance * Guarantor: Arun Ramon Account Type Relation to Patient Date of Phone Billing Address [place] Personal Family Self Care Teams Parachute Folder Relationship Specialty Start Date End Date Juanpablo Cortes OD [address] [place] [address] Consulting Physician Sustainable Design Coordinator 09/24/20
--- OUTSIDE RECORDS SUMMARY | 2024-10-02 16:04 | XMS_ITS | Referral Summary ---
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
--- OUTSIDE RECORDS SUMMARY | 2024-10-02 16:04 | XMS_ITS | Encounter Summary ---
Author Organization [facility] Address [address] [place] [address] Care Team Providers Care Intensive Care Unit Registered Nurse Name Role Phone Mohit Chávez DO Primary Care Provider Encounter Details Date Type Department Care Team (Latest Contact Info) Description 08/29/2024 Travel Social History Tobacco Use Types Packs/Day [...] & Joint [address] [facility], [address] [place] [address] Vasu Yanez, SHAYNA [address] [place] [address] 03/22/2025 3:40 PM EST Office Visit [facility] [address] [place] [address] Delicia Miner, ALEKSEY [address] [place] [address] documented as of this encounter Visit Diagnoses Not on filedocumented in this encounter Additional Health Concerns Assessment Noted Time A fall risk assessment has been complete d for the patient 08/29/2024 2:03 PM EDT A Body Mass Index follow-up plan has been documented for the patient 08/29/2024 2:33 PM EDT documented as of this encounter Care Teams Intensive Care Unit Registered Nurse Relationship Specialty Start Date End Date Mohit Chávez DO [address] [place] [address] PCP - General 06/06/24 documented as of this encounter
--- OUTSIDE RECORDS SUMMARY | 2024-10-02 16:04 | XMS_ITS | Clinical Summary ---
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 Gender Identity Not on file Sexual Orientation Not on file Plan of Treatment Health Maintenance Due Date Last Done Comments CT Colonography 1960 Colonoscopy 1960 Colorectal Cancer Screening 1960 FOBT/FIT 1960 Fit-DNA (Cologuard) 1960 Sigmoidoscopy 1960 Depression Screening (12+) 1972 Tobacco Cessation Counseling and Screening (12+) 1972 HIV Screening 1975 Hepatitis C Screening 1978 COVID-19 VACCINE ( season) 10/18/202301/2021, 04/25/2020 Influenza Vaccine (#1) 2024 , 11/26/2019, 10/22/2018 Lipid Panel 04/06/2028 04/06/2023, 09/10/2020 DTAP/TDAP/TD VACCINES (2 - T d or Tdap) 09/10/2030 09/10/2020 Respiratory Syncytial Virus (RSV) Adult or (1 - 1-dose 75+ series) 2035 Shingles Vaccine (Zoster) Completed 09/10/2020, Pneumococcal 50+ years Completed , 04/16/2018, 11/22/2015 Insurance [employer] [facility] Care Teams Quill Fixer Relationship Specialty Start Date End Date Mohit Chávez DO [address] [place] [address] PCP - General Family Medicine 02/02/24
--- OUTSIDE RECORDS SUMMARY | 2024-10-02 16:04 | XMS_ITS | Encounter Summary ---
Author Organization [facility] Address [address] [place] [address] Care Team Providers Care Weather Reporter Name Role Phone Mohit Chávez DO Primary Care Provider [phone] Encounter Details Date Type Department Care Team ([facility] st Contact Info) Description 08/22/2024 Telephone Medical Office Building Surgery Spine & Joint [address], [address] [place] [address] Basim Black MD [address] [facility] [address] [place] [address] Social History Tobacco Use Types Packs/Day Years [...] encounter Miscellaneous Notes * Telephone Encounter - Sera Vargas - 08/22/2024 10:42 AM EDT Scheduled 08/29 for injections. Surgery and corresponding appointments canceled. * Telephone Encounter - Jaylin Black - 08/22/2024 10:31 AM EDT Clinical Concern/Question Reason for Call: Sofia pt. Pt needs to cancel his surgery. Pt's son had a serious accident and he is going to have to put this off for now. Best contact number: [phone] (home) Optimal time of day to reach caller: ANYTIME Additional comments/information from caller: None Note: Please do not reply to this message. Follow-up communication and further actions as a result of this message need to be communicated with the patient directly, if the patient is not active onMyChart. If the patient is active on MyChart, they will receive notification of the communication/outcome via Yapmohart. documented in this encounter Plan of Treatment Upcoming Encounters Date Type Department Care Team ([facility] st Contact Info) Description 11/25/2024 10:10 AM EDT Office Visit Medical Office Building Surgery Spine & Joint [address], [address] [place] [address] Vasu Yanez, SHAYNA [address] [place] [address] 03/22/2025 3:40 PM EST [facility] End[facility]ology [address] [place] [address] Delicia Miner, ALEKSEY [address] [facility] [address] [place] [address] documented as of this encounter Visit Diagnoses Not on filedocumented in this encounter Additional Health Concerns Assessment Noted Time A fall risk assessment has been complete d for the patient 06/06/2024 10:45 AM EDT A Body Mass Index follow-up plan has been documented for the patient 06/06/2024 11:30 AM EDT documented as of this encounter Care Teams Weather Reporter Relationship Specialty Start Date End Date Mohit Chávez DO [address] [place] [address] PCP - General 06/06/24 documented as of this encounter
--- NOTE | 2024-10-02 16:06 | XR_ITS ---
PROCEDURE INFORMATION: Exam: XR Right Shoulder Exam date and time: 10/02/2024 4:19 PM Age: 64 years old Clinical indication: Pain; Shoulder; Right; Additional info: Traumatic shoulder pain x 6 weeks ago TECHNIQUE: Imaging protocol: Radiologic exam of the right shoulder. Views: 2 or more views. COMPARISON: CR XR CHEST PORTABLE 12/04/2022 12:29 PM FINDINGS: Bones/joints: Mild osteoarthritis right acromioclavicular joint. Small calcifications adjacent to the lateral acromion and the superolateral right humeral head suggesting calcific tendinitis. Soft tissues: Normal. IMPRESSION: No acute findings. Mild degenerative changes discussed above.
[2024-10-02 16:56] VITALS: BP 115/70; PULSE 78; RESP 18; TEMP 36.7; O2SAT 99
== END 2024-10-02 17:06 | disposition home or self-care (01) ==
PROVIDERS: Emergency Provider Student in an Organized Health Care Education/Training Program
DX: S46.009A Unspecified injury of muscle(s) and tendon(s) of the rotator cuff of unspecified shoulder, initial encounter (principal); X50.9XXA Other and unspecified overexertion or strenuous movements or postures, initial encounter
CPT/HCPCS: 73030; 99282; 99283

== ENCOUNTER 2024-10-31 13:03 | Outpatient (CLI) | payer OTHER, SELFPAY ==
--- OUTSIDE RECORDS SUMMARY | 2024-09-19 15:40 | XMS_ITS | Encounter Summary ---
Author Organization [facility] Address [address] [place] [address] Care Team Providers Care Mailer Apprentice Name Role Phone Mohit Chávez DO Primary Care Provider [phone] Reason for Referral * Consultation (Routine) - Authorized Specialty Diagnoses / Procedures Referred By Contsagar t Referred To Contact Diagnoses Type 2 diabetes mellitus with hyperglycemia, with long-term current use of insulin ([facility]) Delicia Miner APRN [address] [address] Phone: tel: fax: Referral ID Status Reason Start Date Expiration Date V isits Requested Visits Authorized [id number] Authorized 09/19/2024 03/21/2026 1 1 Reason for Visit * Reason Comments Diabetes Encounter Details Date Type Department Care Team (Late st Contact Info) Description 09/19/2024 3:40 PM EDT [facility] [address] [place] [address] Delicia Miner APRN [address] [place] [address] Type 2 diabetes mellitus without complication, with long-term current use of insulin (Primary Dx); Class 1 obesity with serious comorbidity and body mass index (BMI) of 32.0 to 32.9 in adult, unspecified obesity type; Hyperlipidemia, unspecified hyperlipidemia type; Hypertension, unspecified type Social History Tobacco Use Types Packs/Day Years [...] Sign Reading Time Taken Comments Blood Pressure 123/74 09/19/2024 3:13 PM EDT Pulse 77 09/19/2024 3:13 PM EDT Temperature - - Respiratory Rate - - Oxygen Saturation - - Inhaled Oxygen Concentration - - Weight 98.5 kg (217 lb 2.5 oz) 09/19/2024 3:13 P M EDT Height 175.3 cm (5' 9.02 ) 09/19/2024 3:13 PM ED T Body Mass Index 32.05 09/19/2024 3:13 PM EDT documented in this encounter Miscellaneous Notes * Progress Notes - Delicia Miner, ALEKSEY - 09/19/2024 3:40 PM EDT Images from the original note were not included. Subjective Arun aRmon is a 64 y.o. male who presents for an follow up evaluation of Diabetes Mellitis Type 2. Patient was diagnosed age 45. History osteoarthritis, chronic bilateral knee pain, Coronary Artery Disease, hypertension, Obesity, DVT/PE HPI -last visit Oct 2023 -A1C: 6% -last A1C: 6.5% April 2024 Current treatment includes oral agents, intensive insulin injection program, and GLP1 -Lantus 25 units once daily in PM -Humalog 15 units small meal, 25 units larger meal, 2:30>150 SS -Jardiance 25 mg daily, no infections -Mounjaro 10 mg weekly, no SE -past medications: metformin-ineffective/declined use with concerns, Ozempic- sick, glipizide Known diabetic complications: cardiovascular disease Compliance at present is estimated to be good. -injecting insulin into the abdomen, rotates injection site, reports some scar tissue noted at injection site, denies insulin leakage at injection site Cardiovascular risk factors: advanced age (older than 55 for men, 65 for women), diabetes mellitus,dyslipidemia, hypertension, male gender, and obesity (BMI >= 30 kg/m2) Is he on ROSHAN inhibitor or angiotensin II receptor germán? Yes on amlodipine, chlorthalidone, BB Is he on a StatinYes on fenofibrate, fish oil -on xarelto Current diet:on average, 1-2 meals per day, decreased appetite with Mounjaro -getting protein -has lost weight -often boluses before meals Current exercise:limited with knee pain Home blood sugar records: Patient's continuous glucose monitor was downloaded and reviewed with the patient during the visit CGM dates reviewed: 09/06/24-09/19/24 Interpretation: good blood glucose control demonstrated Avg B GMI: 6.3% Percentage time in range: 96% Percentage of time with low blood glucose: 1% -Last Eye exam: June 2024, cataracts removed, history cystoid macular degeneration, glaucoma, deniesknown retinopathy, uses a couple different eye drops -Last Foot exam: uses diabetic socks, denies known neuropathy, denies history foot ulcers/sores -Last Labs: June 2024, April 2024 -recent/interval events: reports plans for right knee replacement -receives steroid knee injections every 3 months Arun Ramon has ketone strips: yes/no: ordered, no history DKA Arun Ramon has glucagon kit: yes/no: ordered What current meter are you using?: one touch verio The following portions of the chart were reviewed this encounter and updated as appropriate: Tobacco Allergies Meds Problems Med Hx Surg Hx Fam Hx Review of Systems Constitutional: Intentional weight loss HENT: Negative. Eyes: Positive for visual disturbance. Respiratory: Negative. Cardiovascular: Negative. Gastrointestinal: Negative. Endocrine: See HPI Genitourinary: Negative. Musculoskeletal: Knee pain Skin: Negative. Neurological: Negative. Psychiatric/Behavioral: Negative. Objective Physical Exam Vitals reviewed. Constitutional: General: He is not in acute distress. Appearance: Normal appearance. He is obese. He is not ill-appearing. HENT: Head: Normocephalic. Nose: Nose normal. Cardiovascular: Rate and Rhythm: Normal rate and regular rhythm. Heart sounds: Normal heart sounds. Pulmonary: Effort: Pulmonary effort is normal. Breath sounds: Normal breath sounds. Musculoskeletal: General: Normal range of motion. Cervical back: Normal range of motion. Skin: General: Skin is warm and dry. Neurological: Mental Status: He is alert and oriented to person, place, and time. Psychiatric: Mood and Affect: Mood normal. Behavior: Behavior normal. Thought Content: Thought content normal. Judgment: Judgment normal. Lab Review Glucose, Plasma (mg/dL) Date Value 07/06/2024 141 (H) 04/29/2024 115 (H) 08/12/2023 131 (H) 12/31/2018 202 (H) POCT Hemoglobin A1C (%) Date Value 09/19/2024 6.0 10/29/2023 7.3 Hemoglobin A1c (%) Date Value 04/29/2024 6.5 (H) 04/06/2023 8.80 (H) CO2, Plasma (mmol/L) Date Value 12/31/2018 24 BUN, Plasma (mg/dL) Date Value 07/06/2024 17 04/29/2024 28 (H) 08/12/2023 11 12/31/2018 21 Creatinine, Plasma (mg/dL) Date Value 07/06/2024 1.08 04/29/2024 1.45 (H) 08/12/2023 0.94 12/31/2018 1.15 Assessment/Plan Diabetes Mellitis Type 2, is controlled. Rx changes: -reduce Lantus to 20 units once daily in PM -continue Humalog 15-25 units with meals based on meal size plus adjust to 1:30>150 SS -continue Jardiance 25 mg daily -continue Mounjaro 10 mg weekly, no SE -discussed can consider increasing Mounjaro dose further if tolerated to help reduce insulin requirement -follow up: 6 months #Obesity Body mass index is 32.05 kg/m??. -The patient received dietary education because they have an above normal BMI. and Pharmacotherapy was ordered because the patient hasan above normal BMI. #HTN -controlled, 123/74 -stable on ROSHAN, amlodipine, chlorthalidone, BB -continue antihypertensives per primary care provider #HLD -lipid panel up to date April 2024 -stable on statin, fish oil, and fibrate, no myalgias, continue per primary care provider -encouraged healthy diet The following Diabetes education was reviewed: []SBGM to evaluate dose needs [x]Insulin coverage with carbohydrate intake []Site rotation [] Exercise impact on glucose levels []Driving safety related to diabetes []Sick day management []Ketone testing []Over treatment of hypoglycemia [x] Hypoglycemia management [x]Call-in line use []Insulin pump pros and cons []Sensor home use []Pump class offerings []Dominique phenomena []Somogyi effect [] Alcohol related to diabetes []Benefits of written records []Pre-meal Bolusing []Daily foot care [x] Healthy diet and regular exercise []Long-term complications related to poor diabetes management [] Injection timing related to changes in activity/exercise Time spent in visit does not include the time spent in reviewing CGM I personally spent a total of minutes on this encounter. This time includes face to face with patient, counseling and discussion and/or coordination of care. Electronically signed by: Delicia Miner APRN [facility] [address] [place] [address]. [address] [place]. [address] PHONE [phone] FAX: [phone] documented in this encounter Plan of Treatment Upcoming Encounters Date Type Department Care Team ([facility] st Contact Info) Description 11/25/2024 10:10 AM EDT Office Visit Medical Office Building Surgery [facility] [address] [facility], [address] [place] [address] Vasu Yanez, PA [address] [place] [address] 12/06/2024 1:20 PM EDT Office Visit [facility] [address] [place] [address] Frantz Grossman MD [address] [place] [address] 03/22/2025 3:40 PM EST Office Visit [facility] Endocrinology [address] [place] [address] Delicia Miner, ALEKSEY [address] [place] [address] Scheduled Referrals Name Type Priority Associated Diagnoses Orde r Schedule Follow Up [facility] Outpatient Referral Routine Type 2 diabetes mellitus without complication, with long-term current use of insulin Expected: 03/22/2025, Expires: 03/23/2026 documented as of this encounter Procedures Procedure Name Priority Date/Time Associated Diagnosis Comments POCT GLYCOSYLATED HEMOGLOBIN (HGB A1C) Routine 09/19/2024 3:29 PM EDT Type 2 diabetes mellitus without complication, with long-term current use of insulin documented in this encounter Results * POCT glycosylated hemoglobin (Hb A1C) (09/19/2024 3:29 PM EDT) POCT Hemoglobin A1C 6.0 <5.7% Non-Diabet ic % [facility] Kit Lot Number [id number] [facility] Expiration Date 07/15/26 [facility] Blood Venous blood specimen / Unknown 09/19/2024 3:29 PM EDT Delicia Miner DIRECTOR OF CONSERVATION POINT OF CARE TEST ENTER/ED IT ORDERABLES Final Result [facility] [address] [place] [address] documented in this encounter Visit Diagnoses Diagnosis Type 2 diabetes mellitus without complication, with long-term current use of insulin- Primary Class 1 obesity with serious comorbidity and body mass index (BMI) of 32.0 to 32.9 in adult, unspecified obesity type Hyperlipidemia, unspecified hyperlipidemia type Hypertension, unspecified type documented in this encounter Additional Health Concerns Assessment Noted Time A fall risk assessment has been complete d for the patient 08/29/2024 2:03 PM EDT A Body Mass Index follow-up plan has been documented for the patient 09/19/2024 4:10 PM EDT documented as of this encounter Care Teams Mailer Apprentice Relationship Specialty Start Date End Date Mohit Chávez DO [address] [place] [address] PCP - General 06/06/24 documented as of this encounter
--- OUTSIDE RECORDS SUMMARY | 2024-10-11 13:00 | XMS_ITS | Encounter Summary ---
Author Organization Healthcare Address [address] [place] [address] Care Team Providers Care Grass Farmer Name Role Phone Mohit Chávez DO Primary Care Provider [phone] Reason for Referral * Imaging (Urgent) - Authorized Specialty Diagnoses / Procedures Referred By Contac t Referred To Contact Radiology Diagnoses Acute pain of right shoulder Procedures MR Shoulder Right wo IV Contrast Aditya Ochoa PA [address] [facility] [address] [place] [address] Phone: tel: fax: Referral ID Status Reason Start Date Expiration Date V isits Requested Visits Authorized [id number] Authorized 10/11/2024 04/12/2026 1 1 Reason for Visit * Reason Comments Consult Encounter Details Date Type Department Care Team (Late st Contact Info) Description 10/11/2024 1:00 PM EDT Office Visit [facility] Orthopaedic Surgery & Sports Medicine [address] [place] [address] Frantz Grossman MD [address] [facility] [address] [place] [address] Acute pain of right shoulder (Primary Dx) Social History Tobacco Use Types [...] Sign Reading Time Taken Comments Blood Pressure 103/70 10/11/2024 1:09 PM EDT Pulse 73 10/11/2024 1:09 PM EDT Temperature 36.7 C (98.1 F) 10/11/2024 1:09 PM EDT Respiratory Rate - - Oxygen Saturation 98% 10/11/2024 1:09 PM EDT Inhaled Oxygen Concentration - - Weight 93 kg (205 lb) 10/11/2024 1:09 PM EDT Height 175.3 cm (5' 9 ) 10/11/2024 1:09 PM EDT Body Mass Index 30.27 10/11/2024 1:09 PM EDT documented in this encounter Miscellaneous Notes * Progress Notes - Aditya Ochoa PA - 10/11/2024 1:00 PM EDT Referring provider: [] Chief Complaint: Right shoulder pain History of Present Illness: Arun Ramon is a 64 y.o. right hand dominant male who is new to [facility]. His past medical history is significant for insulin- dependent diabetes, pulmonary embolism, and hyperlipidemia. He is taking Xarelto. He reports walking his [employer]pherds over 7 weeks ago when he was pulled by leash and fell onto the right shoulder. He rates his pain a 0/10 at rest, but states there can be a sharp 9/10 pain dependent upon range of motion. He has tried ibuprofen and tramadol 50 mg 5 times per day with mild benefit. 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 These were found to be noncontributory. This is located in the patient's note and/or intheir intake form that has been scanned into their medical record at today's visit. Physical Exam: BMI is Body mass index is 30.27 kg/m??. General: Patient is pleasant and cooperative. The patient is well-developed and well-nourished. Patient is in no apparent distress Vitals: as documented in the chart for today's visit HEENT: Head: Normocephalic; Atraumatic Eyes: PERRLA; EOMI Ears: Normal external auditory canals and tympanic membranes Lungs/thorax: Normal respiratory effort, symmetric chest rise and fall Cardiovascular: skin well-perfused; capillary refill < 2 sec Skin: Visualized skin with no acute or worrisome lesions or masses Musculoskeletal: Right Shoulder: Appearance: [Normal to visualized inspection] Palpation: Tenderness to palpation of the long head of the biceps tendon and the deltoid insertion Active Motion: Flexion 160??. Abduction 160??, adduction [30 degrees], external rotation in neutral[50], internal rotation in neutral [to trunk] Scapular stabilized passive motion: Flexion 160??. Abduction 160??, Special testing: Positive Neer's and Dobbins Right Wrist/Hand: Appearance: [Normal to visualized inspection] Patient is able to make a full fist and has full extension of all digits Cervical Spine: [Normal appearance with no skin lesions or masses.] Neurologic: Cranial nerves II-XII intact. Sensation intact in axillary, ulnar, median, and radial nerve distributions in bilateral upper extremities Psychiatric: Mental status: Patient is oriented to person, place, and time. Patient displays appropriate affect and demeanor Imaging: My independent interpretation of radiographic testing shows: Right shoulder x- rays from 10/11/2024 reveal mild glenohumeral joint space narrowing and moderate acromioclavicular joint osteoarthritis. There is sclerosis of the greater tuberosity with calcific tendinosis. Notes reviewed: none Results of tests reviewed: none Assessment/Plan: Acute pain of right shoulder Arun Ramon is a 64 y.o. right hand dominant male who is new to us today. His past medical history is significant for insulin-dependent diabetes, pulmonary embolism, and hyperlipidemia. He is taking Xarelto. He reports walking his [employer] over 7 weeks ago when he was pulled by leash and fell onto the right shoulder. He rates his pain a 0/10 at rest, but states there can be a sharp 9/10 pain dependent upon range of motion. He has tried ibuprofen and tramadol 50 mg 5 times per day with mild benefit. Radiographs reveal mild glenohumeral joint space narrowing and moderate acromioclavicular joint osteoarthritis. There is sclerosis and cystic changes of the greater tuberosity with calcific tendinosis. He has retained full range of motion though he does have pain with range of motion. His physical exam is concerning for underlying rotator cuff pathology. We discussed treatment options to include formal therapy versus obtaining an MRI for further evaluation. Due to the acute traumatic nature of the injury we will order a right shoulder MRI for further evaluation. He is to follow up after obtaining diagnostics in order to discuss further treatment options. The patient had the opportunity to ask questions, all of which were answered to their satisfaction. Kind Regards, Aditya Ochoa PA-C, [facility] Department of Orthopedic Surgery [facility] [1] Past Medical History: Diagnosis Date Deep vein thrombosis (CMS/HCC) Diabetes mellitus (CMS/HCC) HLD (hyperlipidemia) Hypertension Obesity Osteoarthritis Pulmonary embolism [2] Past Surgical History: Procedure Laterality Date CATARACT EXTRACTION [3] Family History Problem Relation Name Age of Onset Diabetes Other [4] No Known Allergies Cosigned by Frantz Grossman MD at 10/13/2024 5:01 PM EDT Associated attestation - Frantz Grossman MD - 10/13/2024 5:01 PM EDT I was present and scrubbed for all portions of the case. Aditya CORRAL was present as no qualified resident was available. Maitre D' was necessary due to the complexity and difficulty of the case (a medical necessity). The seed laboratory assistant was involved in all aspects of the procedure including preoperative evaluation and documentation, the operative intervention (patient positioning, patient pre-operative prep, instrument handling, suture cutting, tissue retraction, hemostasis, wound closure,, application of dressings and brace), and postoperative documentation. I attest to being involved in providing substantive part of the medical decision making in patient care. documented in this encounter Plan of Treatment Upcoming Encounters Date Type Department Care Team (Late st Contact Info) Description 11/25/2024 10:10 AM EDT Office Visit Medical Office Building Surgery Spine & Joint [address] [facility] [place] [address] Vasu Yanez, PA [address] [place] [address] 12/06/2024 1:20 PM EDT Office Visit [facility] Orthopaedic Surgery & Sports Medicine [address] [place] [address] Frantz Grossman MD [address] [place] [address] 03/22/2025 3:40 PM EST Office Visit [facility] Endocrinology [address] [place] [address] Delicia Miner S, SECURITY SCREENER [address] [facility] [address] [place] [address] Scheduled Orders Name Type Priority Associated Diagnoses Orde r Schedule MR Shoulder Right wo IV Contrast Imaging Routine Acute pain of right shoulder Expected: 10/11/2024 (Approximate), Expires: 04/14/2026 documented as of this encounter Results * XR Shoulder Right 2+ Views (10/11/2024 1:45 PM EDT) Anatomical Region Laterality Modality Upper Extremities, Shoulder Right Digi austen Radiography Impressions 10/11/2024 3:14 PM EDT Moderate to severe AC joint and minimal glenohumeral joint osteoarthrosis. Sclerosis and irregularity of the greater tuberosity with small density adjacent to the greater tuberosity and adjacent to the acromion which could represent a fragmented enthesophyte at the greater tuberosity versus calcific tendinosis. CRITICAL RESULT: No. COMMUNICATION: Per this written report. By electronically signing this report, I, the attending physician, attest that I have personally reviewed the images/data for the above examination(s) and agree with the final edited report. Drafted by Ga Delgado MD on 10/11/2024 2:46 PM Final report signed by Aditya Maldonado MD on 10/11/2024 3:14 PM Narrative 10/11/2024 3:14 PM EDT CLINICAL INDICATION: pain TECHNIQUE: XR SHOULDER RIGHT 2+ VIEWS COMPARISON: Right shoulder radiographs, 10/02/2024 FINDINGS: Minimal glenohumeral joint space narrowing. Moderate to severe AC joint space narrowing with osteophytosis. Sclerosis and irregularity of the greater tuberosity. Small foci of mineralization are seen just inferior to the acromion laterally and adjacent to the greater tuberosity. No acute fracture or dislocation.. No subluxation with weightbearing. Procedure Note Aditya Maldonado MD - 10/11/2024 CLINICAL INDICATION: pain TECHNIQUE: XR SHOULDER RIGHT 2+ VIEWS COMPARISON: Right shoulder radiographs, 10/02/2024 FINDINGS: Minimal glenohumeral joint space narrowing. Moderate to severe AC jointspace narrowing with osteophytosis. Sclerosis and irregularity of thegreater tuberosity. Small foci of mineralization are seen just inferior tothe acromion laterally and adjacent to the greater tuberosity. No acutefracture or dislocation.. No subluxation with weightbearing. IMPRESSION: Moderate to severe AC joint and minimal glenohumeral jointosteoarthrosis. Sclerosis and irregularity of the greater tuberosity with small densityadjacent to the greater tuberosity and adjacent to the acromion whichcould represent a fragmented enthesophyte at the greater tuberosity versuscalcific tendinosis. CRITICAL RESULT: No. COMMUNICATION: Per this written report. By electronically signing this report, I, the attending physician, attestthat I have personally reviewed the images/data for the aboveexamination(s) and agree with the final edited report. Drafted by Ga Delgado MD on 10/11/2024 2:46 PM Final report signed by Aditya Maldonado MD on 10/11/2024 3:14 PM Frantz Grossman MD IMG XR PROCEDURES Final Resu lt documented in this encounter Visit Diagnoses Diagnosis Acute pain of right shoulder- Primary Primary osteoarthritis, right shoulder documented in this encounter Additional Health Concerns Assessment Noted Time A fall risk assessment has been complete d for the patient 10/11/2024 1:09 PM EDT A Body Mass Index follow-up plan has been documented for the patient 10/13/2024 5:10 PM EDT documented as of this encounter Care Teams Grass Farmer Relationship Specialty Start Date End Date Mohit Chávez DO [address] [place] [address] PCP - General 06/06/24 documented as of this encounter
--- OUTSIDE RECORDS SUMMARY | 2024-10-11 13:19 | XMS_ITS | Encounter Summary ---
Author Organization Healthcare Address [address] [place] [address] Care Team Providers Care Partition Making Machine Operator Name Role Phone Mohit Chávez DO Primary Care Provider [phone] Encounter Details Date Type Department Care Team (Latest Contact Info) Description 10/11/2024 1:19 PM EDT - 10/11/2024 11:59 PM EDT Hospital [facility] [address] [place] [address] Primary osteoarthritis, right shoulder Discharge Disposition: Home or Self Care Social History Tobacco Use Types Packs/Day Years [...] on file documented as of this encounter Medications at Time of Discharge acyclovir (Zovirax) 400 MG tablet Take 1 tablet (400 mg) by mouth 4 (four) times a day if needed. 2 amLODIPine (Norvasc) 10 MG tablet Take 1 tablet (10 mg) by mouth 1 (one) time each day. 1 atropine 1 % ophthalmic solution instill 1 drop IN THE LEFT EYE TWICE DAILY 3 DAYS prior TO surgery 3 Blood Glucose Monitoring Suppl (GlucoCom Blood Glucose Monitor) device 1 each by Other route. cetirizine (ZyrTEC) 10 MG tablet Take 1 tablet (10 mg) by mouth 1 (one) time each day. 1 chlorhexidine (Peridex) 0.12 % solution RINSE MOUTH WITH 15ML (1 CAPFUL) FOR 30 SECONDS IN MORNING AND EVENING AFTER BRUSHING, THEN SPIT 4 chlorthalidone (Hygroton) 25 MG tablet 1 tablet (25 mg) 1 (one) time each day. 6 ciclopirox (Penlac) 8 % solution 4 coenzyme Q-10 100 MG capsule Take by mouth. Continuous Glucose Sensor (FreeStyle Art 3 Sensor) [facility] 1 sensor every 14 days. 2 each 5 09/20/19 26 Denta 5000 Plus 1.1 % cream USE DIRECTED diazePAM (Valium) 2 MG tablet Take 1 tablet (2 mg) by mouth. 4 fenofibrate micronized (Lofibra) 134 MG capsule Take 1 capsule (134 mg) by mouth 1 (one) time each day with breakfast. 1 glucose blood test strip 4x/day, Please provide strips compatible with patient's meter and insurance, onetouch verio 120 each 5 Green Tea 150 MG capsule Take 150 mg by mouth 1 (one) time each day. HYDROcodone-acetami nophen ([place]) 5-325 MG tablet TAKE ONE TABLET BY MOUTH EVERY 6 HOURS MAY CAUSE DROWSINESS hydrOXYzine HCl (Atarax) 25 MG tablet TAKE 1-2 TABLET BY MOUTH 30-60 MINUTES BEFORE BEDTIME NEEDED FOR INSOMNIA ALLOW 7 HOURS SLEEP ibuprofen 800 MG tablet Take 0.5 tablets (400 mg) by mouth 1 (one) time each day. insulin glargine (Lantus SoloStar) 100 UNIT/ML injection pen Inject 20 Units under the skin nightly. 15 mL 5 09/20/19 26 insulin lispro (Admelog, HumaLOG) 100 UNIT/ML injection pen Inject subcutaneous 15-25 units with meals plus 1:30>150 SS, max dose 50u/day 15 mL 5 Jardiance 25 MG Take 1 tablet by mouth daily. 30 tablet 09/20/19 26 ketorolac (Acular) 0.5 % ophthalmic solution 3 Lancets misc Use 4x/day as directed 120 each 11 5 latanoprost (Xalatan) 0.005 % ophthalmic solution LOCATION: BOTH EYES. APPLY ONE DROP ONCE DAILY TO BOTH EYES AT BEDTIME 4 lisinopril 40 MG tablet Take 1 tablet (40 mg) by mouth 1 (one) time each day. 1 metoprolol succinate XL (Toprol-XL) 25 MG 24 hr tablet Take 1 tablet (25 mg) by mouth 1 (one) time each day. 1 Mounjaro 10 MG/0.5ML solution auto-injector solution pen-injector INJECT 10MG UNDER THE SKIN DIRECTED ONCE A WEEK 5 neomycin-polymyxin- dexamethasone (Maxitrol) 3.5-96999-0.1 ophthalmic suspension 4 nystatin (Mycostatin) 632477 UNIT/ML suspension Use 5 mL (500,000 Units) in the mouth or throat 4 times a day. 4 omega-3 (Fish Oil) 1000 MG capsule Take 2 capsules (2,000 mg) by mouth 1 (one) time each day. omeprazole (PriLOSEC) [address] capsule Take 1 capsule (40 mg) by mouth 1 (one) time each day. 1 ondansetron ODT (Zofran-ODT) 8 MG disintegrating tablet 4 ondansetron ODT (Zofran-ODT) 8 MG disintegrating tablet 4 pen needle, diabetic (B-D UF III MINI PEN NEEDLES) 31G X 5 MM misc 4x/day as directed 120 each 11 5 rosuvastatin (Crestor) 10 MG tablet TAKE ONE TABLET BY MOUTH EVERY DAY 1 sertraline (Zoloft) 25 MG tablet Take 1 tablet (25 mg) by mouth 1 (one) time each day. 1 timolol (Timoptic) 0.5 % ophthalmic solution 4 traMADol (Ultram) 50 MG tablet 4 triamcinolone (Kenalog) 0.1 % cream Apply 1 Application topically twice a day. 4 Ventolin HFA 108 (90 Base) MCG/ACT inhaler TAKE 2 PUFFS BY MOUTH 4 TIMES A DAY 4 Xarelto 20 MG tablet Take 1 tablet (20 mg) by mouth 1 (one) time each day. 1 glucagon (Baqsimi Two Pack) 3 MG/DOSE powder Nasal Powder Administer 3 mg into affected nostril(s) 1 (one) time if needed (severe hypoglycemia). 2 each 3 4 10/29/19 25 documented as of this encounter Plan of Treatment Upcoming Encounters Date Type Department Care Team (Late st Contact Info) Description 11/25/2024 10:10 AM EDT Office Visit Medical Office Building Surgery Spine & Joint [address] [facility], [address] [place] [address] Vasu Yanez, PA [address] [place] [address] 12/06/2024 1:20 PM EDT [facility] [address] [place] [address] Frantz Grossman MD [address] [place] [address] 03/22/2025 3:40 PM EST Office Visit [facility] Endocrinology [address] [place] [phone] Delicia Miner, RECORDS ANALYST [address] [place] [address] documented as of this encounter Procedures Procedure Name Priority Date/Time Associated Diagnosis Comments XR SHOULDER RIGHT 2+ VIEWS Routine 10/11/2024 1:45 PM EDT Primary osteoarthritis, right shoulder documented in this encounter Results * XR Shoulder Right [...] signing this report, I, the attending physician, terence I have personally reviewed the images/data for the aboveexamination(s) and agree with the final edited report. Drafted by Ga Delgado MD on 10/11/2024 2:46 PM Final report signed by Aditya Maldonado MD on 10/11/2024 3:14 PM us Frantz Grossman MD IMG XR PROCEDURES Final Resu lt documented in this encounter Visit Diagnoses Diagnosis Primary osteoarthritis, right shoulder documented in this encounter Additional Health Concerns Assessment Noted Time A fall risk assessment has been complete d for the patient 10/11/2024 1:09 PM EDT A Body Mass Index follow-up plan has been documented for the patient 10/13/2024 5:10 PM EDT documented as of this encounter Care Teams Partition Making Machine Operator Relationship Specialty Start Date End Date Mohit Chávez DO [address] [facility] [address] PCP - General 06/06/24 documented as of this encounter
--- NOTE | 2024-10-31 13:09 | XR_ITS ---
FINAL REPORT CLINICAL HISTORY: right shoulder pain COMPARISON: None FINDINGS: RIGHT SHOULDER Two views show no evidence of acute displaced fracture or dislocation of the visualized bony architecture. There is calcification superior to the humeral head suspicious for calcific tendinitis. There are mild degenerative changes of the acromioclavicular joint and glenohumeral joint. IMPRESSION: Probable mild calcific tendinitis. Mild degenerative changes. Reviewed, Interpreted and Dictated by Marck Woo MD Transcribed by Allie Ly Authenticated and [facility]
--- OUTSIDE RECORDS SUMMARY | 2024-10-31 13:15 | XMS_ITS | Encounter Summary ---
Author Organization [facility] Address [address] [place] [address] Care Team Providers Care Print Cutter Name Role Phone Mohit Chávez DO Primary Care Provider +1- [phone] Reason for Visit * Reason Onset Date Comments Med Refill 08/01/2022 Encounter Details Date Type Department Care Team (Late st Contact Info) Description 08/01/2022 Refill [facility] [address] [place] [place] [id number] Mohit Chávez DO [address] [address]85[address] Type 2 diabetes mellitus without complications Social [...] Ramon Relationship: Self Best call back number: [phone] Requested Prescriptions: Requested Prescriptions Pending Prescriptions Disp Refills insulin aspart (NovoLOG FlexPen) 100 UNIT/ML solution pen-injector sc pen 15 mL 5 Pharmacy where request should be sent: [facility] - [phone] PH - [phone] FX Last office visit with prescribing clinician: [...] 1:00 PM EDT Office Visit [facility] [address] [place] [address] Mohit Chávez DO [address] [place] [address] documented as of this encounter Visit Diagnoses Diagnosis Type 2 diabetes mellitus without complications documented in this encounter Care Teams Print Cutter Relationship Specialty Start Date End Date Mohit Chávez DO [address] [place] [address] PCP - General Family Medicine 03/08/21 documented as of this encounter
--- OUTSIDE RECORDS SUMMARY | 2024-10-31 13:15 | XMS_ITS | Encounter Summary ---
Author Organization [facility] Address [address] [place] [id number] Care Team Providers Care It Security Analyst Name Role Phone Mohit Chávez DO Primary Care Provider +1- [phone] Reason for Visit * Reason Onset Date Comments Med Refill 03/28/2024 Encounter Details Date Type Department Care Team (Late st Contact Info) Description 03/28/2024 Refill [facility] [address] [place] [address] Mohit Chávez DO [address] [place] [id number] Type 2 diabetes mellitus without complication, with [...] encounter Miscellaneous Notes * Telephone Encounter - eDb Marie RegSched Rep - 03/28/2024 10:23 AM EST Caller: Arun Ramon Relationship: Self Best call back number: [phone] Requested Prescriptions: Requested Prescriptions Pending Prescriptions Disp Refills Continuous Glucose Sensor (FreeStyle Art 2 Sensor) misc 2 each 2 Sig: Use 1 each Every 14 (Fourteen) Days. Pharmacy where request should be sent: [id number] - [place], [place] - [address] [facility] - [phone] - [phone] FX Last office visit with prescribing clinician: [...] Description 11/01/2024 1:00 PM EDT Office Visit [facility] [address] [place] [address] Mohit Chávez DO [address] [place] [address] documented as of this encounter Visit Diagnoses Diagnosis Type 2 diabetes mellitus without complication, with long-term current use of insulin documented in this encounter Care Teams It Security Analyst Relationship Specialty Start Date End Date Mohit Chávez DO [address] [place] [address] PCP - General Family Medicine 03/08/21 documented as of this encounter
--- OUTSIDE RECORDS SUMMARY | 2024-10-31 13:15 | XMS_ITS | Encounter Summary ---
Author Organization [facility] Address [address] [place] [address] Care Team Providers Care Manager Telemarketing Name Role Phone Kyler Mohit Cervantes DO Primary Care Provider [phone] Encounter Details Date Type Department Care Team (Late Contact Info) Description 10/02/2024 Orders Only External Location [address] [place] [address] Roya Álvarez MD [address] [place] [address] Social History Tobacco Use Types Packs/Day Years [...] Joint [address], [address] [place] [address] Vasu Yanez PA [address] [place] [address] 12/06/2024 1:20 PM EDT Office Visit [facility] Orthopaedic Surgery & Sports Medicine [address], 1[address] [place] [address] Frantz Grossman MD [address] [place] [address] 03/22/2025 3:40 PM EST Office Visit [facility] Endocrinology [address] [place] [address] Delicia Miner S, MARKETING AREA MANAGER [address] [place] [address] documented as of this encounter Procedures Procedure Name Priority Date/Time Associated Diagnosis Comments XR OUTSIDE IMAGES 10/02/2024 4:19 PM EDT documented in this encounter Results * XR OUTSIDE IMAGES (10/02/2024 4:19 PM EDT) Anatomical Region Laterality Modality Radiographic Hilary ging 10/02/2024 4:19 PM EDT us Roya Álvarez MD IMG XR PROCEDURES Final Result documented in this encounter Visit Diagnoses Not on filedocumented in this encounter Additional Health Concerns Assessment Noted Time A fall risk assessment has been complete d for the patient 08/29/2024 2:03 PM EDT A Body Mass Index follow-up plan has been documented for the patient 09/19/2024 4:10 PM EDT documented as of this encounter Care Teams Manager Telemarketing Relationship Specialty Start Date End Date Mohit Chávez DO [address] [place] [address] PCP - General 06/06/24 documented as of this encounter
--- OUTSIDE RECORDS SUMMARY | 2024-10-31 13:15 | XMS_ITS | Encounter Summary ---
Author Organization [facility] Address [address] [place] [address] Care Team Providers Care Fringing Machine Operator Name Role Phone Mohit Chávez DO Primary Care Provider [phone]- [phone] Reason for Visit * Reason Onset Date Comments Med Refill 09/07/2024 Encounter Details Date Type Department Care Team (Late st Contact Info) Description 09/07/2024 Refill [facility] [address] [place] [address] Mohit Chávez DO [address] [id number] Chronic pain of both knees Social History [...] Ramon Relationship: Self Best call back number: [phone] Requested Prescriptions: Requested Prescriptions Pending Prescriptions Disp Refills traMADol (ULTRAM) 50 MG tablet 150 tablet 2 Sig: Take 1 tablet by mouth 5 (Five) Times a Day As Needed for Moderate Pain. Pharmacy where request should be sent: [id number] - [place], [place] - [address] [facility] - [phone] - [phone] FX Last office visit with prescribing clinician: [...] Description 11/01/2024 1:00 PM EDT Office Visit [facility] [address] [facility] [place] [address] Mohit Chávez DO [address] [facility] [place] [address] documented as of this encounter Visit Diagnoses Diagnosis Chronic pain of both knees documented in this encounter Care Teams Fringing Machine Operator Relationship Specialty Start Date End Date Mohit Chávez DO [address] [place] [address] PCP - General Family Medicine 03/08/21 documented as of this encounter
--- OUTSIDE RECORDS SUMMARY | 2024-10-31 13:15 | XMS_ITS | Encounter Summary ---
Author Organization [facility] Address [address] [place] [phone] Care Team Providers Care Plywood Factory Worker Name Role Phone Mohit Chávez DO Primary Care Provider +1- [phone] Reason for Visit * Reason Onset Date Comments Med Refill 12/17/2022 Encounter Details Date Type Department Care Team (Late st Contact Info) Description 12/17/2022 Refill [facility] [address] [id number] Mohit Chávez DO [address] [id number] Type 2 diabetes mellitus without complications Social [...] Ramon Relationship: Self Best call back number: [phone] Requested Prescriptions: Requested Prescriptions Pending Prescriptions Disp Refills insulin aspart (NovoLOG FlexPen) 100 UNIT/ML solution pen-injector sc pen 15 mL 5 Levemir FlexTouch 100 UNIT/ML injection Pharmacy where request should be sent: [facility] [place] [address] - [phone] PH - [phone] FX Last office visit with prescribing clinician: [...] Description 11/01/2024 1:00 PM EDT Office Visit [facility] [address] [facility] [address] Mohit Chávez DO [address] [place], [place] [address] documented as of this encounter Visit Diagnoses Diagnosis Type 2 diabetes mellitus without complications documented in this encounter Care Teams Plywood Factory Worker Relationship Specialty Start Date End Date Mohit Chávez DO [address] [place] [address] PCP - General Family Medicine 03/08/21 documented as of this encounter
--- OUTSIDE RECORDS SUMMARY | 2024-10-31 13:15 | XMS_ITS | Encounter Summary ---
Author Organization [facility] Address [address] [place] [address] Care Team Providers Care Wash Oil Cooler Operator Name Role Phone Mohit Chávez DO Primary Care Provider [phone]- [phone] Reason for Visit * Reason Comments Med Refill Encounter Details Date Type Department Care Team (Late st Contact Info) Description 09/12/2024 Refill [facility] [address] [place] [address] Mohit Chávez DO [address] [place] [address] Social History Tobacco Use Types Packs/Day Years [...] Description 11/01/2024 1:00 PM EDT Office Visit [facility] [address] [place] [address] Mohit Chávez DO [address] [place] [address] documented as of this encounter Visit Diagnoses Not on filedocumented in this encounter Care Teams Wash Oil Cooler Operator Relationship Specialty Start Date End Date Mohit Chávez DO [address] [place] [address] PCP - General Family Medicine 03/08/21 documented as of this encounter
--- OUTSIDE RECORDS SUMMARY | 2024-10-31 13:15 | XMS_ITS | Encounter Summary ---
Author Organization [facility] Address [address] [place] [phone] Care Team Providers Care Polishing Pad Mounter Name Role Phone Mohit Chávez DO Primary Care Provider +1- [phone] Reason for Visit * Reason Comments Med Refill Encounter Details Date Type Department Care Team (Late st Contact Info) Description 09/02/2024 Refill [facility] [address] [place] [address] Mohit Chávez DO [address] [place] [address] Chronic pain of both knees Social History [...] Description 11/01/2024 1:00 PM EDT Office Visit [facility] [address] [place] [address] Mohit Chávez DO [address] [facility] [place] [address] documented as of this encounter Visit Diagnoses Diagnosis Chronic pain of both knees documented in this encounter Care Teams Polishing Pad Mounter Relationship Specialty Start Date End Date Mohit Chávez DO [address] [place] [address] PCP - General Family Medicine 03/08/21 documented as of this encounter
--- OUTSIDE RECORDS SUMMARY | 2024-10-31 13:15 | XMS_ITS | Encounter Summary ---
Author Organization [facility] Address [address] [place] [phone] Care Team Providers Care Control Room Operator Name Role Phone Mohit Chávez DO Primary Care Provider +1- [phone] Reason for Visit * Reason Comments Med Refill Encounter Details Date Type Department Care Team (Late st Contact Info) Description 08/24/2023 Refill [facility] [address] [place] [address] Mohit Chávez DO [address] [place], [place] [phone] Type 2 diabetes mellitus without complication, unspecified whether terminal make up operator insulin use Social History Tobacco Use Types [...] Description 11/01/2024 1:00 PM EDT Office Visit [facility] [address] [place] [address] Mohit Chávez DO [address] [place] [address] documented as of this encounter Visit Diagnoses Diagnosis Type 2 diabetes mellitus without complication, unspecified whether correction insulin use documented in this encounter Care Teams Control Room Operator Relationship Specialty Start Date End Date Mohit Chávez DO [address] [place], [place] [address] PCP - General Family Medicine 03/08/21 documented as of this encounter
--- OUTSIDE RECORDS SUMMARY | 2024-10-31 13:15 | XMS_ITS | Encounter Summary ---
Author Organization [facility] Address [address] [place] [phone] Care Team Providers Care Self Sealing Fuel Tank Builder Name Role Phone Mohit Chávez DO Primary Care Provider +1- [phone] Reason for Visit * Reason Onset Date Comments FAX 08/16/2024 Encounter Details Date Type Department Care Team (Late st Contact Info) Description 08/16/2024 Telephone [facility] [address] [place] [address] Mohit Chávez DO [address] [place] [address] FAX Social History Tobacco Use Types Packs/Day [...] ORTHOPEDICS Relationship: Other Best call back number: [phone] What is the best time to reach [...] 1:00 PM EDT Office Visit [facility] [address] [place] [address] Mohit Chávez DO [address] [place] [address] documented as of this encounter Visit Diagnoses Not on filedocumented in this encounter Care Teams Self Sealing Fuel Tank Builder Relationship Specialty Start Date End Date Mohit Chávez DO [address] [place] [address] PCP - General Family Medicine 03/08/21 documented as of this encounter
--- OUTSIDE RECORDS SUMMARY | 2024-10-31 13:15 | XMS_ITS | Encounter Summary ---
Author Organization [facility] Address [address] [place] [address] Care Team Providers Care Animal Nursery Worker Name Role Phone Mohit Chávez DO Primary Care Provider +1- [phone] Reason for Visit * Reason Onset Date Comments Med Refill 07/07/2024 Encounter Details Date Type Department Care Team (Late st Contact Info) Description 07/07/2024 Refill [facility] [address] [place] [address] Mohit Chávez DO [address] [place] [id number] Social History Tobacco Use Types Packs/Day Years [...] Ramon Relationship: Self Best call back number: [phone] Requested Prescriptions: Requested Prescriptions Pending Prescriptions Disp Refills chlorthalidone (HYGROTON) 25 MG tablet Sig: Take 0.5 tablets by mouth Daily. Pharmacy where request should be sent: [facility] [phone] Last office visit with prescribing clinician: 07/06/2024 [...] 11/01/2024 1:00 PM EDT Office Visit [facility] [address] [place] [address] Mohit Chávez DO [address] [facility] [address] documented as of this encounter Visit Diagnoses Not on filedocumented in this encounter Care Teams Animal Nursery Worker Relationship Specialty Start Date End Date Mohit Chávez DO [address] [facility], [place] [address] PCP - General Family Medicine 03/08/21 documented as of this encounter
--- OUTSIDE RECORDS SUMMARY | 2024-10-31 13:15 | XMS_ITS | Encounter Summary ---
Author Organization [facility] Address [address] [place] [address] Care Team Providers Care Wharf Tender Head Name Role Phone Chávez Mohit Cervantes DO Primary Care Provider [phone] Encounter Details Date Type Department Care Team (Latest Contact Info) Description 10/11/2024 Travel Social History Tobacco Use Types Packs/Day [...] Joint [address], [address] [place] [address] Vasu Yanez PA [address] [place] [address] 12/06/2024 1:20 PM EDT Office Visit [facility] Orthopaedic Surgery & Sports Medicine [address], 1st Floor [address] [place] [address] Frantz Grossman MD [address] [place] [address] 03/22/2025 3:40 PM EST Office Visit [facility] Endocrinology [address] [place] [address] Delicia Miner, MONEY LAUNDERING INVESTIGATOR [address] [place] [address] documented as of this encounter Visit Diagnoses Not on filedocumented in this encounter Additional Health Concerns Assessment Noted Time A fall risk assessment has been complete d for the patient 10/11/2024 1:09 PM EDT A Body Mass Index follow-up plan has been documented for the patient 10/13/2024 5:10 PM EDT documented as of this encounter Care Teams Wharf Tender Head Relationship Specialty Start Date End Date Mohit Chávez DO [address] [place] [address] PCP - General 06/06/24 documented as of this encounter
--- OUTSIDE RECORDS SUMMARY | 2024-10-31 13:15 | XMS_ITS | Encounter Summary ---
Author Organization [facility] Address [address] [place] [id number] Care Team Providers Care Traffic Chief Name Role Phone Lakshmi Chávez DO Primary Care Provider +1- [phone] Reason for Visit * Reason Onset Date Comments Med Refill 09/15/2024 Encounter Details Date Type Department Care Team (Late st Contact Info) Description 09/15/2024 Telephone [facility] [address] [place] [address] Lakshmi Chávez DO [address] [place] [address] Med Refill Social History Tobacco Use Types [...] Description 11/01/2024 1:00 PM EDT Office Visit [facility] [address] [place] [address] Lakshmi Chávze DO [address] [place] [address] documented as of this encounter Visit Diagnoses Diagnosis Type 2 diabetes mellitus without complication, with long-term current use of insulin documented in this encounter Care Teams Traffic Chief Relationship Specialty Start Date End Date Lakshmi Chávez DO [address] [facility] [place] [address] PCP - General Family Medicine 03/08/21 documented as of this encounter
--- OUTSIDE RECORDS SUMMARY | 2024-10-31 13:15 | XMS_ITS | Encounter Summary ---
Author Organization [facility] Address [address] [place] [phone] Care Team Providers Care Crate Liner Name Role Phone Mohit Chávez DO Primary Care Provider +1- [phone] Reason for Visit * Reason Comments Med Refill Encounter Details Date Type Department Care Team (Late st Contact Info) Description 09/06/2024 Refill [facility] [address] [place] [address] Mohit Chávez DO [address] [place], [place] [phone] Social History Tobacco Use Types Packs/Day Years [...] Description 11/01/2024 1:00 PM EDT Office Visit [facility] [address] [place] [address] Mohit Chávez DO [address] [place], [place] [address] documented as of this encounter Visit Diagnoses Not on filedocumented in this encounter Care Teams Crate Liner Relationship Specialty Start Date End Date Mohit Chávez DO [address] [place], [place] [address] PCP - General Family Medicine 03/08/21 documented as of this encounter
--- OUTSIDE RECORDS SUMMARY | 2024-10-31 13:15 | XMS_ITS | Encounter Summary ---
Author Organization [facility] Address [address] [place] [address] Care Team Providers Care Pipe Inspector Name Role Phone Mohit Chávez DO Primary Care Provider [phone] Reason for Visit * Reason Onset Date Comments HCN - Patient Message 10/11/2024 Encounter Details Date Type Department Care Team (Late st Contact Info) Description 10/11/2024 Telephone [facility] Orthopaedic Surgery & Sports Medicine [address], 1st [address] [place] [address] Frantz Grossman MD [address] [place] [address] HCN - Patient Message Social History Tobacco Use Types Packs/Day Years [...] encounter Miscellaneous Notes * Telephone Encounter - Rebecca Farias - 10/13/2024 1:35 PM EDT MRI coordinated with clinic follow up. Patient notified of scheduled appts * Telephone Encounter - Tammy Atkinson - 10/11/2024 2:45 PM EDT Clinical Concern/Question Reason for Call: Dr Grossman patient was told to stop at the front desk admin to schedule the MRI and follow on the same day. He is requesting a call back. Best contact number: [phone] (home) Optimal time of day to reach caller: ANYTIME Additional comments/information from caller: None Note: Please do not reply to this message. Follow-up communication and further actions as a result of this message need to be communicated with the patient directly, if the patient is not active onMyChart. If the patient is active on MyChart, they will receive notification of the communication/outcome via [email or web address]. documented in this encounter Plan of Treatment Upcoming Encounters Date Type Department Care Team (Late st Contact Info) Description 11/25/2024 10:10 AM EDT Office Visit [facility] [address], [address] [place] [address] Vasu Yanez, PA [address] [place] [address] 12/06/2024 1:20 PM EDT Office Visit [facility] Orthopaedic Surgery & Sports Medicine [address], 1[address] [place] [address] Frantz Grossman MD [address] [place] [address] 03/22/2025 3:40 PM EST Office Visit [facility] Endocrinology [address] [place] [address] Delicia Miner, ALEKSEY [address] [place] [address] documented as of this encounter Visit Diagnoses Not on filedocumented in this encounter Additional Health Concerns Assessment Noted Time A fall risk assessment has been complete d for the patient 10/11/2024 1:09 PM EDT A Body Mass Index follow-up plan has been documented for the patient 10/13/2024 5:10 PM EDT documented as of this encounter Care Teams Pipe Inspector Relationship Specialty Start Date End Date Mohit Chávez DO [address] [place] [address] PCP - General 06/06/24 documented as of this encounter
--- OUTSIDE RECORDS SUMMARY | 2024-10-31 13:16 | XMS_ITS | Encounter Summary ---
Author Organization [facility] Address [address] [place] [phone] Care Team Providers Care Informatics Specialist Name Role Phone Mohit Chávez DO Primary Care Provider +1- [phone] Reason for Visit * Reason Comments Med Refill Encounter Details Date Type Department Care Team (Late st Contact Info) Description 10/31/2024 Refill [facility] [address] [place] [address] Mohit Chávez DO [address] [place] [address] Primary hypertension Social History Tobacco Use Types Packs/Day Years [...] [facility] [address] [place] [address] Mohit Chávez DO [address] [place] [address] documented as of this encounter Visit Diagnoses Diagnosis Primary hypertension Unspecified essential hypertension documented in this encounter Care Teams Informatics Specialist Relationship Specialty Start Date End Date Mohit Chávez DO [address] [place] [address] PCP - General Family Medicine 03/08/21 documented as of this encounter
--- OUTSIDE RECORDS SUMMARY | 2024-10-31 13:16 | XMS_ITS | Encounter Summary ---
Author Organization Healthcare Address [address] [place] [address] Care Team Providers Care Canvas Cutter Hand Name Role Phone Khang Brown MD Primary Care Provider [phone] Mohit Chávez DO Primary Care Provider [phone] Reason for Referral * Consultation (Routine) - Closed Specialty Diagnoses / Procedures Referred By Blessing chen Referred To Contact Hand Surgery Diagnoses Other bursal cyst, left hand Guy Bunch, ALEKSEY [address] [place] [address] Phone: tel: fax: [place] [facility] [address] [place] [address] Phone: tel: fax: Referral ID Status Reason Start Date Expiration Date V isits Requested Visits Authorized [id number] Closed Specialty Services Required 10/22/2022 04/22/2024 1 1 Encounter Details Date Type Department Care Team (Late st Contact Info) Description 10/22/2022 [facility] [address] [place] [address] Guy Bunch APRN [address] [place] [address] Other bursal cyst, left hand [...] Joint [address], [address] [place] [address] Vasu Yanez, SHAYNA [address] [place] [address] 12/06/2024 1:20 PM EDT Office Visit [facility] Orthopaedic Surgery & Sports Medicine [address], [address] [place] [address] Frantz Grossman MD [address] [place] [address] 03/22/2025 3:40 PM EST Office Visit [facility] Endocrinology [address] [place] [phone] Delicia Miner, REPRINT SORTER [address] [facility] [address] [place] [phone] Scheduled Referrals Name Type Priority Associated Diagnoses [...] documented as of this encounter Care Teams Canvas Cutter Hand Relationship Specialty Start Date End Date Khang Brown MD [address] [place], [place] [id number] PCP - General 06/29/20 06/05/24 Mohit Chávez DO [address] [place] [address] PCP - General 06/06/24 documented as of this encounter
--- OUTSIDE RECORDS SUMMARY | 2024-10-31 13:16 | XMS_ITS | Clinical Summary ---
Author Organization Healthcare Address [address] [place] [address] Care Team Providers Care Clay Stain Mixer Name Role Phone Mohit Chávez DO Primary Care Provider [phone] Allergies No known active allergies Medications amLODIPine [...] 0.5 % ophthalmic solution 03/13/19 24 Active HYDROcodone-acetam inophen (Ashburn) 5-325 MG tablet TAKE ONE TABLET BY [...] % solution 07/28/19 24 Active nystatin (Mycostatin) 627625 UNIT/ML suspension Use 5 mL (500,000 Units) [...] 8 MG disintegrating tablet 08/03/19 24 Active diazePAM (Valium) 2 MG tablet Take 1 tablet (2 mg) by mouth. 11/16/19 24 Active hydrOXYzine HCl (Atarax) 25 MG tablet TAKE 1-2 TABLET BY MOUTH 30-60 MINUTES BEFORE BEDTIME NEEDED FOR INSOMNIA ALLOW 7 HOURS SLEEP Active latanoprost (Xalatan) 0.005 % ophthalmic solution LOCATION: BOTH EYES. APPLY ONE DROP ONCE DAILY TO BOTH EYES AT BEDTIME 10/27/19 Active neomycin-polymyxin -dexamethasone (Maxitrol) 3.5-66101-4.1 ophthalmic suspension 10/27/19 24 Active Denta 5000 [...] 1 tablet by mouth daily. 30 tablet 11 09/20/19 25 026 Active pen needle, diabetic [...] meter and insurance, onetouch verio 120 each 09/20/19 25 Active glucagon (Baqsimi Two Pack) 3 MG/DOSE powder Nasal Powder Administer 3 mg into affected nostril(s) 1 (one) time if needed (severe hypoglycemia). 2 each 3 10/29/19 24 025 Hospital, Clinic, or Other Facility Administered Medication Ordered Dose Route Frequency Start Date End Date Status hylan (Synvisc) injection 48 mgIndications:Primary osteoarthritis of both knees 48 mg IX Once 03/31/2022 Active Active Problems Problem Noted Date Diagnosed Date Acute pain of right shoulder 10/11/2024 Primary osteoarthritis of right knee 06/06/2024 Contusion [...] tissue 04/22 Other specified erythematous conditions 04/23/19 24 Other skin changes due to ch ronic [...] (01/23/2021): Added automatically from request for surgery [id number] Age-related nuclear cataract of right eye 2020 [...] Encounters Date Type Department Care Team Description 10/11/2024 1:19 PM EDT - 10/11/2024 11:59 PM EDT Hospital En[facility] Radiology [address] [place] [address] Primary osteoarthritis, right shoulder Discharge Disposition: Home or Self Care 10/11/2024 1:00 PM EDT Office Visit [facility] Orthopaedic Surgery & Sports Medicine [address], [address] [place] [address] Frantz Grossman MD Acute pain of right shoulder (Primary Dx) 10/11/2024 Telephone [facility] Surgery [facility] Medicine [address], [address] [place] [address] Frantz Grossman MD HCN - Patient Message 10/11/2024 Travel 10/02/2024 Orders Only External Location [address] [place] [address] Roya Álvarez MD 09/19/2024 3:40 PM EDT Office Visit [facility] Endocrinology [address] [place] [address] Delicia Miner, DENTIST PRIVATE PRACTICE Type 2 diabetes mellitus without complication, with long-term current use of insulin (Primary Dx); Class 1 obesity with serious comorbidity and body mass index (BMI) of 32.0 to 32.9 in adult, unspecified obesity type; Hyperlipidemia, unspecified hyperlipidemia type; Hypertension, unspecified type 09/19/2024 Travel 08/29/2024 2:30 PM EDT Office Visit [facility] [address] [facility], [address] [place] [address] Vasu Yanez, PA Primary osteoarthritis of left knee (Primary Dx); Primary osteoarthritis of right knee 08/29/2024 Travel 08/22/2024 Telephone [facility] [address], [address] [place] [address] Basim Black MD from Last [...] F) 10/11/2024 1:09 PM EDT Respiratory Rate 20 12/17/2022 2:19 PM EDT Oxygen Saturation 98% 10/11/2024 1:09 PM EDT Inhaled Oxygen Concentration - - Weight 93 kg (205 lb) 10/11/2024 1:09 PM EDT Height 175.3 cm (5' 9 ) 10/11/2024 1:09 PM EDT Body Mass Index 30.27 10/11/2024 1:09 PM EDT Plan of Treatment Upcoming Encounters Date Type Department Care Team ([facility] st Contact Info) Description 11/25/2024 10:10 AM EDT Office Visit [facility] [address], [address] [place] [address] Vasu Yanez, SHAYNA [address] [place] [address] 12/06/2024 1:20 PM EDT [facility] [address], [address] [place] [address] Frantz Grossman MD [address] [place] [address] 03/22/2025 3:40 PM EST Office Visit [facility] Endocrinology [address] [place] [address] Delicia Miner, DENTIST PRIVATE PRACTICE [address] [place] [address] Health Maintenance Due Date Last Done Comments [facility]-Depression Screening 1960 [facility]-HIV Screening 1960 [facility]-Hepatitis C Screening 1960 [facility]-/Child/Adol SDOH Screenings 1960 Diabetes: Dental Exam 1970 [facility]- SDOH Screenings 1978 [facility]-Adult SDOH Screenings 1978 CT Colonography 2005 Colonoscopy 2005 FIT-DNA 2005 FIT 2005 FOBT 2005 Sigmoidoscopy 2005 [facility]-Colorectal Cancer Screening 2005 [facility]-RSV Vaccine: 60+ Years or (1 - Risk 60-74 years 1-dose series) 2020 [facility]-Pneumococcal Vaccine: 50+ Years (3 of 3 - PCV20 or PCV21) 04/17/2023 04/16/2018, 11/22/2015 FPA-[id number]-54 Vaccine (2 - season) 2024 04/24/2020 [facility]-Influenza Vaccine (#1) 10/17/202411/30, 02/17/2021, 11/26/2019, Additional history exists [facility]-Diabetes: Hemoglobin A1C 03/19/202505/2024, 04/29/2024, 03/04/2024, Additional history exists [facility]-DTaP,Tdap,and Td Vaccines (2 [...] 1:45 PM EDT Primary osteoarthritis, right shoulder XR OUTSIDE IMAGES 10/02/2024 4:1 9 PM EDT POCT GLYCOSYLATED HEMOGLOBIN (HGB A1C) Routine 09/19/2024 3:29 PM EDT Type 2 diabetes mellitus without complication, with long-term current use of insulin [place] ARTHROCENTESIS ASPIR&/INJ MAJOR JT/BURSA W/O US Routine 08/29/2024 2:30 PM EDT Primary osteoarthritis of left knee Primary osteoarthritis of right knee from Last 3 Months Results * XR Shoulder Right 2+ Views [...] MD IMG XR PROCEDURES Final Resu lt * XR OUTSIDE IMAGES (10/02/2024 4:19 PM EDT) Anatomical Region Laterality Modality Radiographic Hilary ging 10/02/2024 4:19 PM EDT Roya Álvarze MD IMG XR PROCEDURES Final Result * POCT glycosylated hemoglobin (Hb A1C) (09/19/2024 3:29 PM EDT) POCT Hemoglobin A1C 6.0 <5.7% Non-Diabet ic % [employer] [facility] Kit Lot Number [id number] [facility] [employer] [facility] Kit Expiration Date 07/15/26 [facility]ALTH[facility] Blood Venous blood specimen / Unknown 09/19/2024 3:29 PM EDT Delicia Miner DENTIST PRIVATE PRACTICE POINT OF CARE TEST ENTER/ED IT ORDERABLES Final Result Performing Organization Address City/State/[facility] Co de Phone Number [facility] [address] [place] [phone] * [place] ARTHROCENTESIS ASPIR&/INJ MAJOR JT/BURSA W/O [...] the correct patient, procedure, equipment, customer support specialist and site/side marked as required. [...] the correct patient, procedure, equipment, customer support specialist and site/side marked as required. Patient was prepped and draped in the usual sterile fashion. Vasu CORRAL IN CLINIC/BEDSIDE ORDERABLES Final Result from Last [address] [place] [id number] [employer] Care Teams Clay Stain Mixer Relationship Specialty Start Date End Date Mohit Chávez DO [address] [place] [address] PCP - General 06/06/24
--- OUTSIDE RECORDS SUMMARY | 2024-10-31 13:16 | XMS_ITS | Encounter Summary ---
Author Organization [facility] Address [address] [place] [id number] Care Team Providers Care Comptroller Name Role Phone Mohit Chávez DO Primary Care Provider [phone] Reason for Visit * Reason Comments Med Refill Encounter Details Date Type Department Care Team (Late st Contact Info) Description 10/09/2024 Refill [facility] PRIMARY CARE [address] [place] [address] Mohit Chávez DO [address] [place], [place] [id number] Other eczema Social History Tobacco Use Types Packs/Day Years [...] Telephone Encounter - Coco Krishnan MA - 10/10/2024 9:31 AM EDT Rx Refill Note Requested Prescriptions Pending Prescriptions Disp Refills triamcinolone (KENALOG) 0.1 % cream [Pharmacy Med Name: TRIAMCINOLONE 0.1% CREAM] 30 g 3 Sig: APPLY TOPICALLY TO THE APPROPRIATE AREA TWICE A DAY DIRECTED Last office visit with prescribing clinician: 08/01/2024 Last telemedicine visit with prescribing clinician: Visit date not found Next office visit with prescribing clinician: 11/01/2024 Would you like a call back once the refill request has been completed: [] Yes [] No If the office needs to give you a call back, can they leave a voicemail: [] Yes [] No Coco Krishnan MA 10/10/24, 09:31 EDT documented in this encounter Plan of Treatment Upcoming Encounters Date Type Department Care Team (Late st Contact Info) Description 11/01/2024 1:00 PM EDT Office Visit [facility] PRIMARY CARE [address] [place] [address] Mohit Chávez DO [address] [place] [address] documented as of this encounter Visit Diagnoses Diagnosis Other eczema documented in this encounter Care Teams Comptroller Relationship Specialty Start Date End Date Mohit Chávez DO [address] [place] [address] PCP - General Family Medicine 03/08/21 documented as of this encounter
--- OUTSIDE RECORDS SUMMARY | 2024-10-31 13:16 | XMS_ITS | Encounter Summary ---
Author Organization Healthcare Address [address] [place] [address] Care Team Providers Care Call Center Analyst Name Role Phone Chávez Mohit Cervantes DO Primary Care Provider [phone] Encounter Details Date Type Department Care Team [...] Joint [address], [address] [place] [address] Vasu Yanez PA [address] [place] [address] 12/06/2024 1:20 PM EDT Office Visit [facility] Orthopaedic Surgery & Sports Medicine [address], [address] [place] [address] Fratnz Grossman MD [address] [place] [address] 03/22/2025 3:40 PM EST [facility] [address] [place] [address] Delicia Miner, CLIENT ARCHITECT [address] [place] [address] documented as of this encounter Visit Diagnoses Not on filedocumented in this encounter Additional Health Concerns Assessment Noted Time A fall risk assessment has been complete d for the patient 08/29/2024 2:03 PM EDT A Body Mass Index follow-up plan has been documented for the patient 09/19/2024 4:10 PM EDT documented as of this encounter Care Teams Call Center Analyst Relationship Specialty Start Date End Date Mohit Chávez DO [address] [place] [address] PCP - General 06/06/24 documented as of this encounter
--- OUTSIDE RECORDS SUMMARY | 2024-10-31 13:16 | XMS_ITS | Clinical Summary ---
Author Organization [facility] Address [address] [place] [address] Phone Care Team Providers Care Telegraph Operator Name Role Phone Juanpablo Cortes OD Unavailable [phone] Allergies No known active allergies Medications BETA [...] ORAL Take by mouth. Active Green Tea [place] Extract (GREEN TEA) Oral Capsule Take by [...] MINI PEN NEEDLE 31 gauge x 3/16 [facility] Need[facility] USE with injections FOUR TIMES DAILY [...] 60 mL 2 09/05/19 Active Blood-Glucose Meter [facility] MiscIndications:Ty pe 2 diabetes mellitus with hyperlipidemia (HCC) 1 Each by [facility].(Non-Drug; Combo Route) route. PertinoTouch Ultra 2 meter. Use to check blood sugars twice daily. E11.9 Active sertraline (ZOLOFT) 25 mg Oral TabletIndications: Depression, unspecified depression type Take 1 Tab by mouth daily. 30 Tab 5 09/11/19 Active olopatadine (PATADAY) 0.2 % Opht DropsIndications:A llergic conjunctivitis, bilateral Place 1 Drop into both eyes daily. 5 mL 5 09/11/19 Active Blood-Glucose Meter [facility] MiscIndications:De pression, unspecified depression type One Touch Verio Reflect. Use to check blood sugars twice a day. e11.9 1 Each 09/11/19 21 Active Blood Sugar Diagnostic [facility] StripIndications:D epression, unspecified depression type One touch [...] 09/10/2020 COVID-19 Vaccine (2 - Novavax series) 10/17/2024 04/24/2020 Influenza Vaccine (#1) 2024 2, 11/26/2019, [...] 5.6 % 09/10/2020 8:52 PM EDT PREFERRED [employer], [employer] Est. Avg Glucose 214 mg/dL 09/10/2020 8:52 PM EDT [facility] Blood Venipuncture / Unknown 09/10/2020 1:54 PM EDT 09/10/2020 1:54 PM EDT Narrative PREFERRED [facility] - 09/10/2020 8:52 PM EDT REFERENCE RANGE: Normal: 4.0-5.6% Pre-diabetes: 5.7-6.4% Provisional diagnosis of diabetes: >6.4% Hgb F>10% and anything which shortens red cell survival, such as hemolytic anemia, or unstable hemoglobin variants such as HbSS, HbSC, or HbCC, will lower the HbA1c value associated with a given level of glycemic control. us Sammy Biggs STEAM AND GAS TURBINE ASSEMBLER CHEMISTRY ORDERABLES Final R esult [facility] [address] [facility] , [place] [address] * (ABNORMAL) LIPID SCREEN (09/10/2020 1:54 PM EDT) Cholesterol 172 <200 mg/dL 09/10/2020 8:13 PM EDT [facility] Comment: < 200 Desirable 200 - 239 Borderline High >= 240 High Triglyceride 316(H) <150 mg/dL 09/10/2020 8:13 PM EDT [facility] Comment: < 150 Normal 150 - 199 Borderline High 200 - 499 High >= 500 Very High HDL 30(L) >=40 mg/dL 09/10/2020 8:13 PM EDT [facility] Comment: > 60 Optimal 40 - 60 Acceptable < 40 Low LDL Calculated 79 <100 mg/dL 09/10/2020 8:13 PM EDT [facility] Comment: < 100 Optimal 100 - 129 Near or above optimal 130 - 159 Borderline High 160 - 189 High >= 190 Very High Non-HDL-C Calculated 142(H) <=129 mg/dL 09/10/2020 8:13 PM EDT [facility] Comment: <130 Desirable 130-159 Above Desirable 160-189 Borderline High 190-219 High >= 220 Very High Fasting Specimen? No None 021 8:13 PM EDT [facility] Blood Venipuncture / Unknown 09/10/2020 1:54 PM EDT 09/10/2020 1:54 PM EDT us Sammy Biggs STEAM AND GAS TURBINE ASSEMBLER CHEMISTRY ORDERABLES Final R esult [facility], [facility] [address] [facility], [place] [address] [facility] [address] [place] [address] * (ABNORMAL) COMPREHENSIVE METABOLIC PANEL (09/10/2020 1:54 [...] mg/dL 09/10/2020 8:13 PM EDT PREFERRED LAB [facility], [facility] ALT 29 <=41 U/L 09/10/2020 8:13 PM EDT [facility], [facility] AST 25 <=40 U/L 09/10/2020 8:13 PM EDT [facility] Alk Phos 68 40 - 129 U/L 09/10/2020 8:13 PM EDT [facility], [facility] GFR Afr Am 93 >=60 mL/min/1.7 3 m2 09/10/2020 8:13 PM EDT [facility] GFR Non Afr Am 80 >=60 mL/min/1.7 3 m2 09/10/2020 8:13 PM EDT [facility] Comment: This estimated GFR was [...] Biggs APRN CHEMISTRY ORDERABLES Final R esult [facility], [facility] [address] [facility] [address] , [place] [address] [facility] [address] [place] [address] * HEPATITIS C ANTIBODY - SCREENING (09/05/2016 9:11 AM EDT) Hep C Ab Negative Negative [facility] Blood specimen (specimen) 09/05/2016 9:11 AM EDT 09/05/2016 3:29 PM EDT Sammy A Biggs STEAM AND GAS TURBINE ASSEMBLER HEMATOLOGY ORDERABLES Final Result [facility] [address] [address] from Last 3 Months or Most Recently Relevant to Health Maintenance Insurance * Guarantor: Arun Ramon Account Type Relation to Patient Date of Phone Billing Address [place] Personal Family Self Care Teams Telegraph Operator Relationship Specialty Start Date End Date Juanpablo Cortes OD [address] [place] [address] Consulting Physician Digital Designer 09/24/20
--- OUTSIDE RECORDS SUMMARY | 2024-10-31 13:16 | XMS_ITS | Referral Summary ---
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
--- OUTSIDE RECORDS SUMMARY | 2024-10-31 13:16 | XMS_ITS | Clinical Summary ---
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 Gender Identity Not on file Sexual Orientation Not on file Plan of Treatment Health Maintenance Due Date Last Done Comments CT Colonography 1960 Colonoscopy 1960 Colorectal Cancer Screening 1960 FOBT/FIT 1960 Fit-DNA (Cologuard) 1960 Sigmoidoscopy 1960 Depression Screening (12+) 1972 Tobacco Cessation Counseling and Screening (12+) 1972 HIV Screening 1975 Hepatitis C Screening 1978 COVID-19 VACCINE ( season) 10/17/202401/2021, 04/25/2020 Influenza Vaccine (#1) 2024 , 11/26/2019, 10/22/2018 Lipid Panel 04/06/2028 04/06/2023, 09/10/2020 DTAP/TDAP/TD VACCINES (2 - T d or Tdap) 09/10/2030 09/10/2020 Respiratory Syncytial Virus (RSV) Adult or (1 - 1-dose 75+ series) 2035 Shingles Vaccine (Zoster) Completed 09/10/2020, Pneumococcal 50+ years Completed , 04/16/2018, 11/22/2015 Insurance [employer] [facility] Care Teams Heel Boom Operator Relationship Specialty Start Date End Date Mohit Chávez DO [address] [place] [address] PCP - General Family Medicine 02/02/24
--- OUTSIDE RECORDS SUMMARY | 2024-10-31 13:16 | XMS_ITS | Clinical Summary ---
Author Organization [facility] Address [address] [place] [address] Care Team Providers Care Wet Finisher Name Role Phone Mohit Chávez DO Primary Care Provider [phone]- [phone] Allergies Active Allergy Reactions Criticality Noted Date Comments Semaglutide(0.25 Or 0.5mg-Dos) Nausea Only Low 03/2023 Medications Lancets (OneTouch Delica Plus [id number]) misc USE DIRECTED 5 times a DAY TO test blood glucose level Active coenzyme Q10 100 MG capsule Take by mouth. Acti ve Green Tea 150 MG capsule Take by mouth. Activ e [place]-3 Fatty Acids (fish oil) 1000 MG capsule capsule Take 2 capsules by mouth Daily. Active bacitracin-polymy remy b (POLYSPORIN) [id number] UNIT/GM ophthalmic ointment Active latanoprost (XALATAN) 0.005 [...] mL 023 Active Blood Glucose Monitoring Suppl (Credport Verio Flex System) w/Device kit by Other [...] CLEANSE WITH ALCOHOL PRIOR TO NEXT USE Active chlorhexidine (PERIDEX) 0.12 % solution RINSE MOUTH WITH 15ML (1 CAPFUL) FOR 30 SECONDS IN MORNING AND EVENING AFTER BRUSHING, THEN SPIT Active metoprolol succinate XL (TOPROL-XL) 25 MG 24 hr tabletIndications :Primary hypertension Take 0.5 tablets by mouth Daily. 45 tablet 1 025 Active Lantus SoloStar 100 UNIT/ML injection pen [id number] UNITS SUBCUTANEOUSLY AT NIGHT Active Continuous Glucose Sensor (FreeStyle Art 2 [...] Administer 1 drop to both eyes Daily. Active Mounjaro 2.5 MG/0.5ML solution auto-injectorIndi cations:Type [...] BY MOUTH ONCE DAILY 90 tablet 1 Active sertraline (ZOLOFT) 25 MG tablet TAKE 1 TABLET BY MOUTH ONCE DAILY 90 tablet 1 025 Active traMADol (ULTRAM) 50 MG tabletIndications :Chronic pain of both knees Take 1 tablet by mouth 5 (Five) Times a Day As Needed for Moderate Pain. 150 tablet 2 025 Active cetirizine (zyrTEC) 10 MG tablet TAKE 1 TABLET BY MOUTH EVERY DAY 30 tablet 2 Active Xarelto 20 MG tablet TAKE 1 TABLET BY MOUTH EVERY DAY 30 tablet 1 025 Active Accu-Chek FastClix Lancets [facility] Use to check blood glucose up to 3 times daily 102 each 11 Active triamcinolone (KENALOG) 0.1 % creamIndications: Other eczema APPLY TOPICALLY TO THE APPROPRIATE AREA TWICE A DAY DIRECTED 30 g 3 025 Active triamcinolone (KENALOG) 0.1 % creamIndications: Other eczema Apply 1 Application topically to the appropriate area as directed 2 (Two) Times a Day. 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 watch crystal edge grinder Start Ozempic 0.25mg, increase to 0.5mg weekly [...] Encounters Date Type Department Care Team Description 10/31/2024 Refill [facility] [address] [place] [address] Mohit Chávez, DO Primary hypertension 10/09/2024 Refill [facility] [address] [facility] [place] [address] Mohit Chávez, DO Other eczema 09/15/2024 Telephone [facility] [address] [place] [address] Mohit Chávez, DO Med Refill 09/12/2024 Refill [facility] [address] [place] [address] Mohit Chávez, DO 09/07/2024 Refill [facility] [address] [place] [phone] Mohit Chávez, DO Chronic pain of both knees 09/06/2024 Refill [facility] [address] [place] [address] Mohit Chávez, DO 09/02/2024 Refill [facility] [address] [place] [phone] Mohit Chávez, DO Chronic pain of both knees 08/22/2024 Refill [facility] [address] [place] [phone] Mohit Chávez, DO 08/16/2024 Telephone [facility] [address] [place] [phone] Mohit Chávez, DO FAX 08/08/2024 Refill [facility] [address] [place] [phone] Mohit Chávez, DO Grief reaction 08/02/2024 Telephone [facility] [address] [place] [address] Mohit Chávez DO 08/01/2024 1:00 PM EDT Office Visit [facility] [address] [phone] Mohit Chávez DO Sprain of other part of right shoulder region, initial encounter (Primary Dx); Type 2 diabetes mellitus without complication, with long-term current use of insulin; Acute pain of right shoulder 08/01/2024 Travel from Last 3 Months Immunizations Immunization Administration [...] 1:00 PM EDT Office Visit [facility] [address] [place] [address] Mohit Chávez DO [address] [place], [place] [id number] Health Maintenance Due Date Last Done Comments DIABETIC FOOT EXAM 1970 COLOGUARD 2005 COLON CANCER SCREENING 5 YEA R SIGMOIDOSCOPY 2005 COLONOSCOPY 2005 COL[address]AL CANCER SCREENING 2005 CT COLONOGRAPHY 2005 FECAL OCCULT BLOOD TEST 2005 FIT Testing (1 year) 2005 ANNUAL PHYSICAL 03/08/2021 HEPATITIS C SCREENING 03/08/2021 COVID-19 Vaccine (2024- 6 season) 2024 12/28/2020, 04/25/2020 INFLUENZA VACCINE 11/16/2024 12/01/2023, , [...] Procedure Name Priority Date/Time Associated Diagnosis Comments HEMOGLOBIN A1C Routine 04/29/2024 10:50 AM EDT Preventative health care Screening for endocrine disorder LIPID PANEL Routine 04/29/2024 10:50 AM EDT Screening for hyperlipidemia Preventative health care SCANNED - EYE EXAM 03/01/2024 from Last 3 Months or Most Recently Relevant to Health Maintenance Results * (ABNORMAL) Hemoglobin A1c (04/29/2024 10:50 AM EDT) Hemoglobin A1C 6.50(H) 4.80 - 5.60 % 04/29/2024 7:12 PM EDT [facility] Blood Venipuncture / Unknown 04/29/2024 10:50 AM EDT 04/29/2024 10:50 AM EDT [facility] - 04/29/2024 7:12 PM EDT Hemoglobin A1C Ranges: Increased Risk for Diabetes 5.7% to 6.4% Diabetes >= 6.5% Diabetic Goal < 7.0% Mohit Chávez DO LAB BLOOD ORDERABLES Final Result [facility]
[address] [place] [address], * (ABNORMAL) Lipid Panel (04/29/2024 10:50 AM EDT) Total Cholesterol 138 0 - 200 mg/dL 04/29/2024 8:11 PM EDT [facility] Triglycerides 139 0 - 150 mg/dL 04/29/2024 8:11 PM EDT [facility] HDL Cholesterol 38(L) 40 - 60 mg/dL 04/29/2024 8:11 PM EDT [facility] LDL Cholesterol 75 0 - 100 mg/dL 04/29/2024 8:11 PM EDT [facility] VLDL Cholesterol 25 5 - 40 mg/dL 04/29/2024 8:11 PM EDT [facility] LDL/HDL Ratio 1.90 04/29/2024 8:11 PM EDT [facility] Blood Venipuncture / Unknown 04/29/2024 10:50 AM EDT 04/29/2024 10:50 AM EDT Narrative [facility] - 04/29/2024 8:11 PM EDT [...] is calculated using the NIH LDL-C calculation. Mohit Chávez DO LAB BLOOD ORDERABLES Final Result [facility]
[address] [place] [address], * EYE EXAM SCANNED (03/01/2024) Anatomical Region Laterality Modality Other Mohit Chávez DO CHART REVIEW TABS Final Result from Last 3 Months or Most Recently Relevant to Health Maintenance Insurance [facility] Care Teams Wet Finisher Relationship Specialty Start Date End Date Mohit Chávez DO [address] [place] [id number] PCP - General Family Medicine 03/08/21
== END 2024-10-31 23:59 | disposition home or self-care (01) ==
LOC: RAD 13:09
PROVIDERS: Visit Provider Physician Assistant Surgical
DX: M19.011 Primary osteoarthritis, right shoulder (principal); R93.6 Abnormal findings on diagnostic imaging of limbs
CPT/HCPCS: 73030

== ENCOUNTER 2024-12-06 07:55 | Outpatient (RCR) | payer OTHER, SELFPAY | END 2024-12-06 23:59 | disposition home or self-care (01) | LOC: OT 07:55 | PROVIDERS: PCP Family Medicine; Visit Provider Physician Assistant Surgical | DX: M24.811 Other specific joint derangements of right shoulder, not elsewhere classified (principal) | CPT/HCPCS: 97032; 97110; 97140; 97166; 97530 ==

== ENCOUNTER 2024-12-19 07:57 | Outpatient (CLI) | payer OTHER, SELFPAY ==
--- OUTSIDE RECORDS SUMMARY | 2024-11-01 12:00 | XMS_ITS | Encounter Summary ---
Author Organization [facility] Address [address] [place] [address] Care Team Providers Care Organic Chemistry Professor Name Role Phone Mohit Chávez DO Primary Care Provider [phone]- [phone] Reason for Visit * Reason Comments Diabetes 3 mth Shoulder Pain Right shoulder injur y (dogs pulled him down) went to [facility] yesterday and was given a steroid shot was told if not any better to reevaluated. Was told to inform pcp Med Dose Change Wants to increase on Encounter Details Date Type Department Care Team (Late st Contact Info) Description 11/01/2024 1:00 PM EDT Office Visit [facility] [address] [place] [address] Mohit Chávez DO [address] [place] [address] Type 2 diabetes mellitus without complication, with long-term current use of insulin (Primary Dx); Colon cancer screening Social History Tobacco Use Types Packs/Day Years [...] Sign Reading Time Taken Comments Blood Pressure 110/68 11/01/2024 1:02 PM EDT Pulse 77 11/01/2024 1:02 PM EDT Temperature - - Respiratory Rate - - Oxygen Saturation 98% 11/01/2024 1:02 PM EDT Inhaled Oxygen Concentration - - Weight 97.5 kg (215 lb) 11/01/2024 1:02 PM EDT Height 175.3 cm (5' 9.02 ) 11/01/2024 1:02 PM ED T Body Mass Index 31.73 11/01/2024 1:02 PM EDT documented in this encounter Progress Notes * Mohit Chávez DO - 11/01/2024 1:21 PM EDTAssociated Problem(s): Type 2 diabetes mellitus without complication, with long-term current use ofinsulin Increase Mounjaro to 12.5mg weekly Contine Jardiance 25mg Continue 5-10U Lantus, mealtime insulin PRN * Mohit Chávez DO - 11/01/2024 1:00 PM EDT Established Patient Office Visit Patient Name: Arun Ramon : 1960 Care Team: Patient Care Team: Mohit Chávez DO as PCP - General (Family Medicine) Chief Complaint: Chief Complaint Patient presents with Diabetes 3 mth Shoulder Pain Right shoulder injury (dogs pulled him down) went to [facility] yesterday and was given a steroid shot was told if not any better to reevaluated. Was told to inform pcp Med Dose Change Wants to increase on mounjaro History of Present Illness: Arun Ramon is a 64 y.o. male who is here today for Diabetes (3 mth),Shoulder Pain (Right shoulder injury (dogs pulled him down) went to [facility] yesterday andwas given a steroid shot was told if not any better to reevaluated. Was told to inform pcp), and Med Dose Change (Wants to increase on mounjaro). HPI History of Present Illness The patient is a 64-year-old male who presents for follow-up on his diabetes. An A1c test done in 09/2024 showed a level of 6.0. He expresses a desire to lose more weight but feels he has reached a plateau. His physical activity includes walking. He is currently on Mounjaro 10and is considering increasing the dosage. His insulin intake is minimal, with 5 to 10 units of Lantus and 10 to 12 units of Humalog after large meals. If his food intake is low, he refrains from taking insulin until his blood sugar levels rise, at which point he administers it 2 to 3 times. He continues to take Jardiance. He has not yet completed the Cologuard test and requests a new order as he believes the previous one has . He reports falling on his shoulder and subsequently went to the hospital for an x-ray. He was referred to an merchandising specialist who diagnosed him with calcium buildup in the tendon. He was informed that it might be just inflammation since he has pretty good movement. He received a cortisone shot yesterday and was advised that if there is no improvement in 2 weeks, an MRI will be considered. The following portions of the patient's history were reviewed and updated as appropriate: allergies, current medications, past family history, past medical history, past social history, past surgicalhistory and problem list. Subjective Review of Systems: Review of Systems - See HPI Past Medical History: Past Medical History: Diagnosis Date HTN (hypertension) Pulmonary embolism 2021 X3 IN PAST Type 2 diabetes mellitus Past Surgical History: History reviewed. No pertinent surgical history. Family History: Family History Problem Relation Age of Onset Diabetes Mother Hyperlipidemia Father Social History: Social History Socioeconomic History Marital status: Tobacco Use Smoking status: Never Passive exposure: Never Smokeless tobacco: Never Vaping Use Vaping status: Never Used Substance and Sexual Activity Alcohol use: Never Drug use: Never Sexual activity: Defer Tobacco History: Social History Tobacco Use Smoking Status Never Passive exposure: Never Smokeless Tobacco Never Medications: Outpatient Medications Prior to Visit Medication Sig Dispense Refill Accu-Chek FastClix Lancets [facility] Use to check blood glucose up to 3 times daily 102 each 11 acyclovir (ZOVIRAX) 400 MG tablet Take 1 tablet by mouth Every 6 (Six) Hours. albuterol sulfate HFA (Ventolin HFA) 108 (90 Base) MCG/ACT inhaler Inhale 2 puffs 4 (Four) Times a Day. 18 g 11 amLODIPine (NORVASC) 10 MG tablet TAKE 1 TABLET BY MOUTH ONCE DAILY 90 tablet 1 amLODIPine (NORVASC) 5 MG tablet TAKE 1 TABLET BY MOUTH EVERY DAY 90 tablet 0 B-D UF III MINI PEN NEEDLES 31G X 5 MM [facility] Use to inject up to 4 times daily 100 each 4 bacitracin-polymyxin b (POLYSPORIN) [phone] UNIT/GM ophthalmic ointment Blood Glucose Monitoring Suppl (EGT Verio Flex System) w/Device kit by Other route 4 (Four) Times a Day. use to test blood sugar cetirizine (zyrTEC) 10 MG tablet TAKE 1 TABLET BY MOUTH EVERY DAY 30 tablet 2 chlorhexidine (PERIDEX) 0.12 % solution RINSE MOUTH WITH 15ML (1 CAPFUL) FOR 30 SECONDS IN MORNING AND EVENING AFTER BRUSHING, THEN SPIT chlorthalidone (HYGROTON) 25 MG tablet Take 0.5-1 tablets by mouth Daily. 90 tablet 0 ciclopirox (PENLAC) 8 % solution APPLY ONCE DAILY TO AFFECTED AREA CLEANSE WITH ALCOHOL PRIOR TO NEXT USE coenzyme Q10 100 MG capsule Take by mouth. Continuous Glucose Sensor (FreeStyle Art 2 Sensor) [facility] USE 1 EACH EVERY 14 (FOURTEEN) DAYS. 6 each 2 diazePAM (Valium) 2 MG tablet Take 1 tablet by mouth 2 (Two) Times a Day As Needed for Anxiety or Sedation. 30 tablet 0 glucose blood (MedrioTouch Verio) test strip 1 each by Other route 5 (Five) Times a Day. use to test blood sugar 5 times daily 50 each 10 glucose monitor monitoring kit Use to test glucose four times daily. 1 each 0 Green Tea 150 MG capsule Take by mouth. HYDROcodone-acetaminophen (NORCO) 5-325 MG per tablet Take 1 tablet by mouth Every 6 (Six) Hours AsNeeded for Other (Drowsiness). insulin detemir (Levemir FlexPen) 100 UNIT/ML injection INJECT 75 UNITS SUBCUTANEOUSLY EVERY DAY ASDIRECTED Insulin Lispro, 1 Unit Dial, (HUMALOG) 100 UNIT/ML solution pen-injector Inject 10-15 Units under the skin into the appropriate area as directed 3 (Three) Times a Day Before Meals. 15 mL 2 Jardiance 25 MG tablet tablet TAKE ONE TABLET BY MOUTH EVERY DAY 30 tablet 0 ketorolac (ACULAR) 0.5 % ophthalmic solution INSTILL 1 DROP IN THE RIGHT EYE THREE TIMES DAILY (EVERY 8 HOURS) FOR 2 WEEKS, THEN TAPER WEEKLY DIRECTED Lactobacillus Rhamnosus, GG, ( Probiotic Digestive Care) capsule Take 1 capsule by mouth Daily. Lancets ([employer] Plus [id number]) [facility] USE DIRECTED 5 times a DAY TO test blood glucose level Lantus SoloStar 100 UNIT/ML injection pen [id number] UNITS SUBCUTANEOUSLY AT NIGHT latanoprost (XALATAN) 0.005 % ophthalmic solution LOCATION: RIGHT EYE. APPLY ONE DROP TO THE RIGHT EYE ONCE DAILY AT BEDTIME lisinopril (PRINIVIL,ZESTRIL) 40 MG tablet TAKE 1 TABLET BY MOUTH EVERY DAY 90 tablet 1 metoprolol succinate XL (TOPROL-XL) 25 MG 24 hr tablet Take 0.5 tablets by mouth Daily. 45 tablet 1 nystatin (MYCOSTATIN) 100,000 unit/mL suspension SWISH AND SWALLOW 5 ML 4 (FOUR) TIMES A DAY. 120 mL 0 [place]-3 Fatty Acids (fish oil) 1000 MG capsule capsule Take 2 capsules by mouth Daily. omeprazole (priLOSEC) 40 MG capsule Take 1 capsule by mouth Daily. 90 capsule 3 ondansetron ODT (ZOFRAN-ODT) [address] 1 tablet on the tongue Every 8 (Eight) Hours As Needed for Nausea or Vomiting. 9 tablet 2 polyethylene glycol (MIRALAX) 17 g packet Take 17 g by mouth Daily. Dissolve in 12oz water 30 each 0 prednisoLONE acetate (PRED FORTE) 1 % ophthalmic suspension INSTILL 1 DROP IN THE RIGHT EYE THREE TIMES DAILY (EVERY 8 HOURS) FOR 2 WEEKS, THEN TAPER WEEKLY DIRECTED promethazine-dextromethorphan (PROMETHAZINE-DM) 6.25-15 MG/5ML syrup Take 5 mL by mouth 4 (Four) Times a Day As Needed for Cough. 180 mL 0 rosuvastatin (CRESTOR) 10 MG tablet TAKE 1 TABLET BY MOUTH ONCE DAILY 90 tablet 1 sertraline (ZOLOFT) 25 MG tablet TAKE 1 TABLET BY MOUTH ONCE DAILY 90 tablet 1 Sodium Fluoride (Denta 5000 Plus) 1.1 % cream See Admin Instructions. tadalafil (CIALIS) 10 MG tablet TAKE 1 TABLET BY MOUTH DAILY NEEDED FOR ERECTILE DYSFUNCTION. 10tablet 2 timolol (BETIMOL) 0.5 % ophthalmic solution Administer 1 drop to both eyes Daily. timolol (TIMOPTIC) 0.5 % ophthalmic solution traMADol (ULTRAM) 50 MG tablet Take 1 tablet by mouth 5 (Five) Times a Day As Needed for Moderate Pain. 150 tablet 2 triamcinolone (KENALOG) 0.1 % cream APPLY TOPICALLY TO THE APPROPRIATE AREA TWICE A DAY [id number] g 3 hydrOXYzine (ATARAX) 25 MG tablet TAKE 1-2 TABLET BY MOUTH 30-60 MINUTES BEFORE BEDTIME NEEDED FOR INSOMNIA, ALLOWING AT LEAST 7 HOURS BEFORE SCHEDULED WAKE- UP TIME. 180 tablet 0 Mounjaro 2.5 MG/0.5ML solution auto-injector Inject 2.5 mg under the skin into the appropriate areaas directed 1 (One) Time Per Week. Increase to 5mg after 4 weeks 2 mL 0 Xarelto 20 MG tablet TAKE 1 TABLET BY MOUTH EVERY DAY 30 tablet 1 No facility-administered medications prior to visit. Allergies: Allergies Allergen Reactions Ozempic (0.25 Or 0.5 Mg-Dose) [Semaglutide(0.25 Or 0.5mg-Dos)] Nausea Only Objective Objective Physical Exam: Vital Signs: Vitals: 11/01/24 1302 BP: 110/68 Pulse: 77 SpO2: 98% Weight: 97.5 kg (215 lb) Height: 175.3 cm (69.02 ) Body mass index is 31.73 kg/m??. Physical Exam Nursing note reviewed Const: NAD, A&Ox4, Pleasant, Cooperative Eyes: EOMI, no conjunctivitis ENT: No nasal discharge present, neck supple Cardiac: Regular rate and rhythm, no cyanosis Resp: Respiratory rate within normal limits, no increased work of breathing, no audible wheezing orretractions noted GI: No distention or ascites MSK: Motor and sensation grossly intact in bilateral upper extremities Neurologic: CN II-XII grossly intact Psych: Appropriate mood and behavior. Skin: Warm, dry Procedures/Radiology Procedures No radiology results for the last 7 days Assessment & Plan Assessment / Plan Assessment/Plan: Problems Addressed This Visit Diagnoses and all orders for this visit: 1. Type 2 diabetes mellitus without complication, with long-term current use of insulin (Primary) Assessment & Plan: Increase Mounjaro to 12.5mg weekly Contine Jardiance 25mg Continue 5-10U Lantus, mealtime insulin PRN Orders: - Mounjaro 12.5 MG/0.5ML solution auto-injector; Inject 0.5 mL under the skin into the appropriate area as directed 1 (One) Time Per Week. Dispense: 6 mL; Refill: 0 2. Colon cancer screening - Cologuard - Stool, Per Rectum; Future Problem List Items Addressed This Visit Endocrine and Metabolic Type 2 diabetes mellitus without complication, with long-term current use of insulin - Primary Overview Currently prescribed Lantus 45U nightly plus Novolog 4-5U 2-3 times daily with meals (usually only eating 2 meals per day). East when he wakes up around 11PM, then again around 9-10AM when he gets home. Checking sugars fasting in AM running 95-130 Current Assessment & Plan Increase Mounjaro to 12.5mg weekly Contine Jardiance 25mg Continue 5-10U Lantus, mealtime insulin PRN Relevant Medications Mounjaro 12.5 MG/0.5ML solution auto-injector Other Visit Diagnoses Colon cancer screening Relevant Orders Cologuard - Stool, Per Rectum New Medications Ordered This Visit Medications Mounjaro 12.5 MG/0.5ML solution auto-injector Sig: Inject 0.5 mL under the skin into the appropriate area as directed 1 (One) Time Per Week. Dispense: 6 mL Refill: 0 Dose change Assessment & Plan 1. Diabetes Mellitus: - His A1c level was recorded as 6.0 in 09/2024, indicating good control of his diabetes. He has experienced a weight loss of 5 pounds since 07/2024. - The dosage of Mounjaro will be increased to 12.5 mg. He should continue his current regimen of Lantus and Humalog, adjusting the doses based on his meal intake and blood sugar levels. He should also continue taking Jardiance. - He is encouraged to maintain his walking routine for exercise. 2. Health Maintenance: - He is up to date on all his labs and immunizations except for colon cancer screening. A referral for a Cologuard test will be placed. - He is advised to get his influenza vaccine, which is available at the clinic or local pharmacies. Follow-up: The patient will follow up in the spring for his annual visit. There are no Patient Instructions on file for this visit. Follow Up: Return in about 6 months (around 05/01/2025) for Annual. [facility] Mohit Chávez DO [facility] [address] [facility] [address] [facility] [address] Patient or patient medical collections representative verbalized consent for the use of Ambient Listening during the visit with Mohit Chávez DO for chart documentation. 11/14/2024 13:58 EDT Disclaimer to patients: The Cares Act makes medical notes like these available to patients in the interest of transparency. However, please be advised that this is still a medical document. It is intended as [id number] communication. Many sections may include medical language or jargon, abbreviations, and additional verbiage that are unfamiliar or confusing. In some ways it may come across as blunt, direct, or may be summarized in order to clearly and concisely communicate the most crucial information to medical detail representative. It may also include mentions of conditions that areunlikely but considered as part of the differential diagnosis, including serious disorders. These are not always discussed at length at the time of appointment because their likelihood is so low, butmay be included in a medical note to make it clear what has been considered and/or ruled out as part of a work-up. Medical documents are intended to carry relevant information, facts as evident, and the personal clinical opinion of the physician. If you have any questions regarding this medical document, please bring them to the attention of the physician at your next scheduled appointment. documented in this encounter Plan of Treatment Upcoming Encounters Date Type Department Care Team (Late st Contact Info) Description 05/01/2025 2:00 PM EDT Office Visit [facility] [address] [place] [address] Mohit Chávez DO [address] [place] [address] Scheduled Orders Name Type Priority Associated Diagnoses Orde r Schedule Cologuard - Stool, Per Rectum Lab Routine Colon cancer screening Expected: 11/01/2024 (Approximate), Expires: 11/01/2025 documented as of this encounter Visit Diagnoses Diagnosis Type 2 diabetes mellitus without complication, with long-term current use of insulin- Primary Colon cancer screening Special screening for malignant neoplasms, colon documented in this encounter Care Teams Organic Chemistry Professor Relationship Specialty Start Date End Date Mohit Chávez DO [address] [place] [address] PCP - General Family Medicine 03/08/21 documented as of this encounter
--- OUTSIDE RECORDS SUMMARY | 2024-11-25 09:10 | XMS_ITS | Encounter Summary ---
Author Organization Healthcare Address [address] [place] [address] Care Team Providers Care Meat Stock Clerk Name Role Phone Mohit Chávez DO Primary Care Provider [phone] Reason for Referral * Other Medical (Routine) - Pending Review Specialty Diagnoses / Procedures Referred By Contac t Referred To Contact Diagnoses Primary osteoarthritis of right knee Primary osteoarthritis of left knee Procedures Injection - Large Joint: bilateral knee Vasu Yanez PA [address] [place] [phone] Phone: tel: fax: Referral ID Status Reason Start Date Expiration Date V isits Requested Visits Authorized [id number] Pending Review 11/25/2024 05/27/2026 1 1 * Consultation (Routine) - Authorized Specialty Diagnoses / Procedures Referred By Contsagar t Referred To Contact Anesthesiology Diagnoses Primary osteoarthritis of right knee Vasu Yanez PA [address] [place] [address] Phone: tel: fax: P[facility] S Anesthesia [address] [place] [address] Phone: tel: Referral ID Status Reason Start Date Expiration Date Visits Requested Visits Authorized [id number] Authorized Specialty Services Required 05/27/2026 1 1 Reason for Visit * Reason Comments Injections Injections Pre-op Visit Encounter Details Date Type Department Care Team (Latest Contact Info) Description 11/25/2024 10:10 AM EDT Office Visit Medical Office Building [facility] [address], [address] [place] [address] Vasu Yanez PA [address] [place] [address] Primary osteoarthritis of right knee (Primary Dx); Primary osteoarthritis of left knee Social History Tobacco Use Types Packs/Day [...] Sign Reading Time Taken Comments Blood Pressure 116/78 11/25/2024 10:14 AM EDT Pulse 76 11/25/2024 10:14 AM EDT Temperature - - Respiratory Rate - - Oxygen Saturation 99% 11/25/2024 10: 14 AM EDT Inhaled Oxygen Concentration - - Weight 92.5 kg (203 lb 14.8 oz) 025 10:14 AM EDT Height 175.3 cm (5' 9 ) 11/25/2024 10:1 4 AM EDT Body Mass Index 30.11 11/25/2024 10:14 AM EDT documented in this encounter Miscellaneous Notes * Progress Notes - Lacey Santana RN - 11/25/2024 10:10 AM EDT Patient was provided with [facility] Joint Education Packet. Patient was educated using information provided in packet. Patient instructed to schedule PT appointment 3-5 days after surgery date and to schedule prior to having procedure. All questions answered. Contact information for Joint Replacement Nu rse given for patient to call should any questions arise before or after surgery. Pt then given a surgery date and Joint Replacement Class date. Reviewed patients allergies, medications, medical and surgical history, and pharmacy verified. Instructed patient to stop NSAIDS, ASA, and OTC vitamins & supplements 1 week prior to procedure. Instructed to ensure any hormone replacement, if taken, is stopped 1 month prior to surgery. Also any dermatological procedures or dental work need to be performed 1 month prior to procedure. Patient instructed to review educational material and write down any questions or concerns in the notes section and bring the packet to the hospital and all appointments. Patient stated understanding. I-PSS survey is done and uploaded into [employer]. Discussed SDD, patient agreeable to go home same day if doing well. Does the clinical care team anticipate the patient's continued opioid usage until surgery results in the patient having been taking opioid for at least 90 days by the time of their procedure?: No * Progress Notes - Vasu Yanez PA - 11/25/2024 10:10 AM EDTAssociated Order(s): Injection - Large Joint: bilateral knee Post-Procedure Diagnose(s): Primary osteoarthritis of left knee; Primary osteoarthritis of right knee Subjective: Arun Ramon is a 64 y.o. male who comes in today for evaluation of his bilateral knees he had been getting injections for some time now in both of his knees. He has end-stage arthritis both knees and x-rays last were in May of this year. He was decided he would like to proceed with right total knee arthroplasty. Today he would like injections in both knees and scheduling for right total knee arthroplasty. Past medical history: Diabetes with controlled hemoglobin A1c of 6.0, history of DVT, obesity with improvement, hypertension, hyperlipidemia. The patient does not smoke has no ongoing dental disease no metal allergies and no history of MRSA Left Knee Review of Systems Tobacco Use History[1] Allergies[2] Objective: BMI is Body mass index is 30.11 kg/m??. He is neurovascular intact bilateral lower extremity. He has proximally 5?? of varus deformities bilateral. Range of motion bilateral hips are normal and not provocative for groin thigh or knee pain.He has medial and lateral joint line tenderness and range of motion of his knees are right/left 5/5and flexion to 120?? bilaterally. Strength is 5/5 with no focal deficits My independent interpretation of radiographic testing shows: none obtained Previous imaging shows: periarticular osteophytes and bone to bone Assessment and plan: Primary osteoarthritis of right knee Primary osteoarthritis of left knee Orders Placed This Encounter CBC W/O Differential Basic metabolic panel Albumin, Plasma Ambulatory referral to Anesthesiology Case Request Operating Room: ARTHROPLASTY, KNEE, TOTAL Explained the pathology, today's evaluation options of care. The patient requests corticosteroid injection bilaterally and this provided under sterile conditions without complications injecting 2:2: 1 bilateral knees. We explained that this will affect his diabetes and he voiced understanding. He would like to be scheduled for right total knee arthroplasty we reiterated the benefits alternatives risks This problem is a chronic problem with some progression. Minor and Major procedure risk factors were discussed: (Injection site pain, infection, inflammation and all pertinent risks, benefits, and alternatives to this procedure were discussed. The risks include but are not limited to loss of life, loss of limb, need for further surgery, nonunion, malunion, infection, nerve and/or vessel injury, limb length discrepancy, blood clots, dislocation. The patient understands these risks as we discussed.) and decision was made for procedure. Patient ID: Arun Ramon is a 64 y.o. male. Encounter Diagnoses Name Primary? Primary osteoarthritis of right knee Yes Primary osteoarthritis of left knee Injection - Large Joint: bilateral knee Indications: [...] to verify the correct patient, procedure, equipment, sales support representative and site/side marked as required. Patient was prepped and draped in the usual sterile fashion. Procedure, treatment alternatives, risks and benefits explained, specific risks discussed (Risks include but are not limited to pain, bleeding, infection, failure to relieve symptoms). Consent was given by the patient. Immediately prior to procedure a time out was called to verify the correct patient, procedure, equipment, sales support representative and site/side marked as required. Patient was prepped and draped in the usual sterile fashion. Justification for Joint Arthroplasty Pain has been present for years. Pain has worsened over last few months. Onset of pain was gradual. Quality of pain is aching and throbbing. Severity of pain is severe. Limitation of ADLs Patient has moderate or severe difficulty getting dressed, using stairs, and cleaning the home Medications Patient has tried acetaminophen for a total of three months with waning efficacy. Intra-Articular Injections Patient has had an intra-articular corticosteroid injection with some relief. BMI Discussion Discussion regarding BMI was undertaken BMI is less than 30 and acceptable for joint replacement. Smoking cessation Tobacco Use History[3] non smoker Physical Therapy and/or Home Exercise Plan Patient has tried physical therapy for at least three months with no demonstrated lasting results. Assistive Devices Patient uses a cane to help with mobility. Safety Issues Patient is at risk of falling Pre-Operative Imaging X-rays demonstrate agum-ss-fkef contact. [1] Social History Tobacco Use Smoking Status Never Smokeless Tobacco Never [2] No Known Allergies [3] Social History Tobacco Use Smoking Status Never Smokeless Tobacco Never documented in this encounter Plan of Treatment Upcoming Encounters Date Type Department Care Team (Late st Contact Info) Description 02/27/2025 9:40 AM EST Office Visit Medical Office Building [facility] [address] [facility], [address] [place] [address] Basim Black MD [address] [place] [address] 02/27/2025 11:00 AM EST Pre-Admission Testing [facility] Anesthesia [address] [place] [phone] 02/27/2025 11:40 AM EST Clinical Support Professional [facility] Services [address] [facility], 1st Floor [place] [phone] 03/14/2025 10:30 AM EST Hospital Encounter PAV S Operating Room [address] [place] [address] Basim Black MD [address] [place] [address] 03/14/2025 10:30 AM EST - 03/14/2025 12:55 PM EST Surgery PAV S Operating Room [address] [place] [phone] Basim Black MD [address] [place] [phone] ARTHROPLASTY, KNEE, TOTAL [[id number] (CPT )] 03/22/2025 3:40 PM EST Office Visit [facility] Endocrinology [address] [place] [phone] Delicia Miner, SYSTEM ADMINISTRATION MANAGER [address] [place] [phone] 03/29/2025 1:30 PM EST Office Visit Medical Office Building [facility] [address], [address] [place] [address] Vasu Yanez PA [address] [place] [address] 04/26/2025 11:00 AM EDT Office Visit Medical Office Building [facility] [address], [address] [place] [address] Basim Black MD [address] [place] [address] Scheduled Orders Name Type Priority Associated Diagnoses Orde r Schedule CBC W/O Differential Lab Routine Primary osteoarthritis of right knee 1 Occurrences starting 11/25/2024 until 11/25/2025 Basic metabolic panel Lab Routine Primary osteoarthritis of right knee 1 Occurrences starting 11/25/2024 until 11/25/2025 Albumin, Plasma Lab Routine Primary osteoarthritis of right knee 1 Occurrences starting 11/25/2024 until 11/25/2025 Scheduled Procedures Name Priority Associated Diagnoses Date/Ti me ARTHROPLASTY, KNEE, TOTAL Primary osteoarthritis of right knee 03/14/2025 10:30 AM EST Scheduled Referrals Name Type Priority Associated Diagnoses Orde r Schedule Ambulatory referral to Anesthesiology Outpatient Referral Routine Primary osteoarthritis of right knee 1 Occurrences starting 11/25/2024 until 05/29/2026 documented as of this encounter Goals Goal Patient Goal Type Associated Problems Recent Progress Patient-Stated? Author Autogenerat ed Goal Care Plan Autogenerated Problem No Mariposa Garcia documented as of this encounter Procedures Procedure Name Priority Date/Time Associated Diagnosis Comments WA ARTHROCENTESIS ASPIR&/INJ MAJOR JT/BURSA W/O US Routine 11/25/2024 10:10 AM EDT Primary osteoarthritis of right knee Primary osteoarthritis of left knee documented in this encounter Results * WA ARTHROCENTESIS ASPIR&/INJ MAJOR JT/BURSA W/O US (11/25/2024 10:10 AM EDT) Narrative Vasu Yanez PA - 11/25/2024 10:10 AM EDT Vasu Yanez PA 11/25/2024 12:35 PM Injection - Large Joint: bilateral knee [...] to verify the correct patient, procedure, equipment, sales support representative and site/side marked as required. Patient was prepped and draped in the usual sterile fashion. Procedure, treatment alternatives, risks and benefits explained, specific risks discussed (Risks include but are not limited to pain, bleeding, infection, failure to relieve symptoms). Consent was given by the patient. Immediately prior to procedure a time out was called to verify the correct patient, procedure, equipment, sales support representative and site/side marked as required. Patient was prepped and draped in the usual sterile fashion. Justification for Joint Arthroplasty Pain has been present for years. Pain has worsened over last few months. Onset of pain was gradual. Quality of pain is aching and throbbing. Severity of pain is severe. Limitation of ADLs Patient has moderate or severe difficulty getting dressed, using stairs, and cleaning the home Medications Patient has tried acetaminophen for a total of three months with waning efficacy. Intra-Articular Injections Patient has had an intra-articular corticosteroid injection with some relief. BMI Discussion Discussion regarding BMI was undertaken BMI is less than 30 and acceptable for joint replacement. Smoking cessation Tobacco Use History[3] non smoker Physical Therapy and/or Home Exercise Plan Patient has tried physical therapy for at least three months with no demonstrated lasting results. Assistive Devices Patient uses a cane to help with mobility. Safety Issues Patient is at risk of falling Pre-Operative Imaging X-rays demonstrate yjfw-my-tqvk contact. [1] Social History Tobacco Use Smoking Status Never Smokeless Tobacco Never [2] No Known Allergies [3] Social History Tobacco Use Smoking Status Never Smokeless Tobacco Never us Vasu CORRAL IN CLINIC/BEDSIDE ORDERABLES Final Result documented in this encounter Visit Diagnoses Diagnosis Primary osteoarthritis of right knee- Primary Primary osteoarthritis of left knee Primary osteoarthritis of right knee- Primary Primary osteoarthritis of right knee documented in this encounter Administered Medications Inactive Administered Medications - up to 3 most recent administrations Medication Order MAR Action Action Date Dose Rate Site bupivacaine (Marcaine) 0.5 % injection 10 mg 10 mg, Injection, Once PRN Procedure, 1 dose, Starting on Thu11/25/24 at 1010, Until Thu11/25/24 at 1010, RoutineIndications:Primary osteoarthritis of right knee,Primary osteoarthritis of left knee Given 11/25/2024 10:10 AM EDT 10 mg bupivacaine (Marcaine) 0.5 % injection 10 mg 10 mg, Injection, Once PRN Procedure, 1 dose, Starting on Thu11/25/24 at 1010, Until Thu11/25/24 at 1010, RoutineIndications:Primary osteoarthritis of right knee,Primary osteoarthritis of left knee Given 11/25/2024 10:10 AM EDT 10 mg lidocaine (Xylocaine) 1 % injection 20 mg 20 mg, Intra-articular, Once PRN Procedure, 1 dose, Starting on Thu11/25/24 at 1010, Until Thu11/25/24 at 1010, RoutineIndications:Primary osteoarthritis of right knee,Primary osteoarthritis of left knee Given 11/25/2024 10:10 AM EDT 20 mg lidocaine (Xylocaine) 1 % injection 20 mg 20 mg, Intra-articular, Once PRN Procedure, 1 dose, Starting on Thu11/25/24 at 1010, Until Thu11/25/24 at 1010, RoutineIndications:Primary osteoarthritis of right knee,Primary osteoarthritis of left knee Given 11/25/2024 10:10 AM EDT 20 mg triamcinolone acetonide (Kenalog-40) injection 40 mg 40 mg, Intra-articular, Once PRN Procedure, 1 dose, Starting on Thu11/25/24 at 1010, Until Thu11/25/24 at 1010, RoutineIndications:Primary osteoarthritis of right knee,Primary osteoarthritis of left knee Given 11/25/2024 10:10 AM EDT 40 mg triamcinolone acetonide (Kenalog-40) injection 40 mg 40 mg, Intra-articular, Once PRN Procedure, 1 dose, Starting on Thu11/25/24 at 1010, Until Thu11/25/24 at 1010, RoutineIndications:Primary osteoarthritis of right knee,Primary osteoarthritis of left knee Given 11/25/2024 10:10 AM EDT 40 mg documented in this encounter Additional Health Concerns Active Problems Noted Date Diagnosed Date Autogenerated Problem 11/25/2024 Assessment Noted Time A fall risk assessment has been complete d for the patient 11/25/2024 10:16 AM EDT A Body Mass Index follow-up plan has been documented for the patient 11/25/2024 12:35 PM EDT documented as of this encounter Care Teams Meat Stock Clerk Relationship Specialty Start Date End Date Mohit Chávez DO [address] [place] [address] PCP - General 06/06/24 documented as of this encounter
--- OUTSIDE RECORDS SUMMARY | 2024-12-19 07:59 | XMS_ITS | Encounter Summary ---
Author Organization [facility] Address [address] [place] [id number] Care Team Providers Care Finished Cigar Maker Name Role Phone Mohit Chávez DO Primary Care Provider [phone] Reason for Visit * Reason Comments Med Refill Encounter Details Date Type Department Care Team (Late st Contact Info) Description 12/01/2024 Refill [facility] [address] [place] [address] Mohit Chávez DO [address] [place] [address] Social History Tobacco Use Types Packs/Day Years [...] Description 05/01/2025 2:00 PM EDT Office Visit [facility] [address] [place] [address] Mohit Chávez DO [address] [place] [address] documented as of this encounter Visit Diagnoses Not on filedocumented in this encounter Care Teams Finished Cigar Maker Relationship Specialty Start Date End Date Mohit Chávez DO [address] [place] [address] PCP - General Family Medicine 03/08/21 documented as of this encounter
--- OUTSIDE RECORDS SUMMARY | 2024-12-19 07:59 | XMS_ITS | Encounter Summary ---
Author Organization [facility] Address [address] [place] [id number] Care Team Providers Care Makeup Sales Advisor Name Role Phone Mohit Chávez DO Primary Care Provider [phone] Reason for Visit * Reason Onset Date Comments Med Refill 03/28/2024 Encounter Details Date Type Department Care Team (Late st Contact Info) Description 03/28/2024 Refill [facility] [address] [place] [address] Mohit Chávez DO [address] [place] [id number] Type 2 diabetes mellitus without complication, with [...] Ramon Relationship: Self Best call back number: [phone] Requested Prescriptions: Requested Prescriptions Pending Prescriptions Disp Refills Continuous Glucose Sensor (FreeStyle Art 2 Sensor) misc 2 each 2 Sig: Use 1 each Every 14 (Fourteen) Days. Pharmacy where request should be sent: [id number] - [place], [place] - [address] [facility] - [phone] - [phone] FX Last office visit with prescribing clinician: [...] Description 05/01/2025 2:00 PM EDT Office Visit [facility] [address] [place] [address] Mohit Chávez DO [address] [place] [address] documented as of this encounter Visit Diagnoses Diagnosis Type 2 diabetes mellitus without complication, with long-term current use of insulin documented in this encounter Care Teams Makeup Sales Advisor Relationship Specialty Start Date End Date Mohit Chávez DO [address] [place] [address] PCP - General Family Medicine 03/08/21 documented as of this encounter
--- OUTSIDE RECORDS SUMMARY | 2024-12-19 07:59 | XMS_ITS | Encounter Summary ---
Author Organization Healthcare Address [address] [place] [address] Care Team Providers Care Electrolysis Operator Name Role Phone Mohit Chávez DO Primary Care Provider [phone] Reason for Visit * Reason Onset Date Comments HCN - Patient Message 10/11/2024 Encounter Details Date Type Department Care Team (Late st Contact Info) Description 10/11/2024 Telephone [facility] Orthopaedic Surgery & Sports Medicine [address], [address] [place] [address] Frantz Grossman MD [address] [place] [address] HCN - Patient Message Social [...] patient was told to stop at the service desk technician to schedule the MRI and follow on the same day. He is requesting a call back. Best contact number: [phone] (home) Optimal time of day to reach caller: ANYTIME Additional comments/information from caller: None Note: Please do not reply to this message. Follow-up communication and further actions as a result of this message need to be communicated with the patient directly, if the patient is not active onMyChart. If the patient is active on MyChart, they will receive notification of the communication/outcome via [employer]. documented in this encounter Plan of Treatment Upcoming Encounters Date Type Department Care Team (Late st Contact Info) Description 02/27/2025 9:40 AM EST Office Visit Medical Office Building Surgery Spine & Joint [address] [facility], [address] [place] [phone] Basim Black MD [address] [facility] [address] 02/27/2025 11:00 AM EST Pre-Admission Testing [facility]est[facility] [address] [place] [address] 02/27/2025 11:40 AM EST Clinical Support Professional [facility] Laboratory Services [address] [facility], 1st Floor [place] [phone] 03/14/2025 10:30 AM EST Hospital Encounter PAV S Operating Room [address] [place] [phone] Basim Black MD [address] [facility] [address] [place] [phone] 03/14/2025 10:30 AM EST - 03/14/2025 12:55 PM EST Surgery [facility] S Operating Room [address] [place] [address] Basim Black MD [address] [place] [address] ARTHROPLASTY, KNEE, TOTAL [[id number] (CPT )] 03/22/2025 3:40 PM EST Office Visit [facility] Endocrinology [address] [place] [phone] Delicia Miner, SEPTIC TANK SERVICE TECHNICIAN [address] [facility] [address] [place] [phone] 03/29/2025 1:30 PM EST Office Visit Medical Office Building Surgery [facility] [address], [address] [place] [address] Vasu Yanez PA [address] [place] [address] 04/26/2025 11:00 AM EDT Office Visit Medical Office Building [facility] [address], [address] [place] [address] Basim Black MD [address] [place] [address] Scheduled Procedures Name Priority Associated Diagnoses Date/Ti me ARTHROPLASTY, KNEE, TOTAL Primary osteoarthritis of right knee 03/14/2025 10:30 AM EST documented as of this encounter Visit Diagnoses Not on filedocumented in this encounter Additional Health Concerns Assessment Noted Time A fall risk assessment has been complete d for the patient 10/11/2024 1:09 PM EDT A Body Mass Index follow-up plan has been documented for the patient 10/13/2024 5:10 PM EDT documented as of this encounter Care Teams Electrolysis Operator Relationship Specialty Start Date End Date Mohit Chávez DO [address] [place] [id number] PCP - General 06/06/24 documented as of this encounter
--- OUTSIDE RECORDS SUMMARY | 2024-12-19 07:59 | XMS_ITS | Encounter Summary ---
Author Organization [facility] Address [address] [place] [address] Care Team Providers Care Concrete Block Layer Name Role Phone Moreno Chávezncer Billy Primary Care Provider [phone] Encounter Details Date Type Department Care Team (Late Contact Info) Description 11/29/2024 Orders Only Medical Office Building [facility] [address], [address] [place] [address] Vasu Yanez PA [address] [place] [address] Type 2 diabetes mellitus with hyperglycemia, with long-term current use of insulin (Primary Dx) Social History Tobacco Use Types [...] Encounters Date Type Department Care Team (Late Contact Info) Description 02/27/2025 9:40 AM EST Office Visit Medical Office Building [facility] [address], [address] [place] [address] Basim Black MD [address] [place] [address] 02/27/2025 11:00 AM EST Pre-Admission Testing [facility] Anesthesia [address] [place] [address] 02/27/2025 11:40 AM EST Clinical Support [facility] Laboratory Services [address] [facility], 1st [place] [address] 03/14/2025 10:30 AM EST Hospital Encounter [facility] Operating Room [address] [place] [address] Basim Black MD [address] [place] [address] 03/14/2025 10:30 AM EST - 03/14/2025 12:55 PM EST Surgery [facility] Operating Room [address] [place] [address] Basim Black MD [address] [place] [address] ARTHROPLASTY, KNEE, TOTAL [[id number] (CPT )] 03/22/2025 3:40 PM EST Office Visit [facility] Endocrinology [address] [place] [address] Delicia Miner S, [employer] [address] [facility] [address] [place] [address] 03/29/2025 1:30 PM EST Office Visit Medical Office Building [facility] [address], [address] [place] [address] Vasu Yanez PA [address] [place] [address] 04/26/2025 11:00 AM EDT Office Visit Medical Office Building [facility] [address], [address] [place] [address] Basim Black MD [address] [place] [address] Scheduled Orders Name Type Priority Associated Diagnoses Orde r Schedule Hemoglobin A1c Lab Routine Type 2 diabetes mellitus with hyperglycemia, with long-term current use of insulin Expected: 11/29/2024 (Approximate), Expires: 05/30/2026 Scheduled Procedures Name Priority Associated Diagnoses Date/Ti me ARTHROPLASTY, KNEE, TOTAL Primary osteoarthritis of right knee 03/14/2025 10:30 AM EST documented as of this encounter Goals Goal Patient Goal Type Associated Problems Recent Progress Patient-Stated? Author Autogenerat ed Goal Care Plan Autogenerated Problem No Mariposa Garcia documented as of this encounter Visit Diagnoses Diagnosis Primary osteoarthritis of right knee- Primary Type 2 diabetes mellitus with hyperglycemia, with long-term current use of insulin- Primary Primary osteoarthritis of right knee documented in this encounter Additional Health Concerns Active Problems Noted Date Diagnosed Date Autogenerated Problem 11/25/2024 Assessment Noted Time A fall risk assessment has been complete d for the patient 11/25/2024 10:16 AM EDT A Body Mass Index follow-up plan has been documented for the patient 11/25/2024 12:35 PM EDT documented as of this encounter Care Teams Concrete Block Layer Relationship Specialty Start Date End Date Mohit Chávez DO [address] [place] [address] PCP - General 06/06/24 documented as of this encounter
--- OUTSIDE RECORDS SUMMARY | 2024-12-19 07:59 | XMS_ITS | Encounter Summary ---
Author Organization [facility] Address [address] [place] [id number] Care Team Providers Care Launderette Attendant Name Role Phone Mohit Chávez DO Primary Care Provider [phone] Reason for Visit * Reason Onset Date Comments Med Refill 12/12/2024 Encounter Details Date Type Department Care Team (Late st Contact Info) Description 12/12/2024 Refill [facility] PRIMARY CARE [address] [place] [address] Mohit Chávez DO [address] [place] [id number] Primary hypertension Social History Tobacco Use Types [...] Description 05/01/2025 2:00 PM EDT Office Visit [facility] PRIMARY [facility]ARE [address] [place] [address] Mohit Chávez DO [address] [place] [address] documented as of this encounter Visit Diagnoses Diagnosis Primary hypertension Unspecified essential hypertension documented in this encounter Care Teams Launderette Attendant Relationship Specialty Start Date End Date Mohit Chávez DO [address] [place] [address] PCP - General Family Medicine 03/08/21 documented as of this encounter
--- OUTSIDE RECORDS SUMMARY | 2024-12-19 07:59 | XMS_ITS | Encounter Summary ---
Author Organization [facility] Address [address] [place] [address] Care Team Providers Care Engineering Department Chair Name Role Phone Mohit Chávez DO Primary Care Provider [phone]- [phone] Reason for Visit * Reason Onset Date Comments Med Refill 12/12/2024 Encounter Details Date Type Department Care Team (Late st Contact Info) Description 12/12/2024 Refill [facility] PRIMARY CARE [address] [place] [address] Mohit Chávez DO [address] [place] [id number] Chronic pain of both knees Social History [...] Telephone Encounter - Coco Krishnan MA - 12/12/2024 2:20 PM EDT Rx Refill Note Requested Prescriptions Pending Prescriptions Disp Refills traMADol (ULTRAM) 50 MG tablet 150 tablet 2 Sig: Take 1 tablet by mouth 5 (Five) Times a Day As Needed for Moderate Pain. Last office visit with prescribing clinician: 11/01/2024 Last telemedicine visit with prescribing clinician: Visit date not found Next office visit with prescribing clinician: 05/01/2025 Would you like a call back once the refill request has been completed: [] Yes [] No If the office needs to give you a call back, can they leave a voicemail: [] Yes [] No Coco Krishnan MA 12/12/24, 14:20 EDT documented in this encounter Plan of Treatment Upcoming Encounters Date Type Department Care Team (Late st Contact Info) Description 05/01/2025 2:00 PM EDT Office Visit [facility] PRIMARY CARE [address] [place] [phone] Mohit Chávez DO [address] [place] [address] documented as of this encounter Visit Diagnoses Diagnosis Chronic pain of both knees documented in this encounter Care Teams Engineering Department Chair Relationship Specialty Start Date End Date Mohit Chávez DO [address] [facility], [place] [id number] PCP - General Family Medicine 03/08/21 documented as of this encounter
--- OUTSIDE RECORDS SUMMARY | 2024-12-19 07:59 | XMS_ITS | Encounter Summary ---
Author Organization [facility] Address [address] [place] [id number] Care Team Providers Care Instrument Mechanics Supervisor Name Role Phone Mohit Chávez DO Primary Care Provider [phone]- [phone] Reason for Visit * Reason Comments Med Refill Encounter Details Date Type Department Care Team (Late st Contact Info) Description 12/11/2024 Refill [facility] PRIMARY CARE [address] [place] [address] Mohit Chávez DO [address] [place] [address] Social History Tobacco Use Types Packs/Day Years [...] Encounter - Coco Krishnan MA - 12/12/2024 9:27 AM EDT Rx Refill Note Requested Prescriptions Pending Prescriptions Disp Refills omeprazole (priLOSEC) 40 MG capsule [Pharmacy Med Name: OMEPRAZOLE DR 40 MG CAPSULE] 90 capsule 3 Sig: TAKE 1 CAPSULE BY MOUTH EVERY DAY Last office visit with prescribing clinician: 11/01/2024 [...] Yes [] No Coco Krishnan MA 12/12/24, 09:27 EDT documented in this encounter Plan of Treatment Upcoming Encounters Date Type Department Care Team (Late st Contact Info) Description 05/01/2025 2:00 PM EDT Office Visit [facility] PRIMARY CARE [address] [place] [address] Mohit Chávez DO [address] [place] [address] documented as of this encounter Visit Diagnoses Not on filedocumented in this encounter Care Teams Instrument Mechanics Supervisor Relationship Specialty Start Date End Date Mohit Chávez DO [address] [place] [address] PCP - General Family Medicine 03/08/21 documented as of this encounter
--- OUTSIDE RECORDS SUMMARY | 2024-12-19 07:59 | XMS_ITS | Encounter Summary ---
Author Organization [facility] Address [address] [place] [address] Care Team Providers Care Water Aerobics Instructor Name Role Phone Mohit Chávez DO Primary Care Provider [phone]- [phone] Reason for Visit * Reason Comments Med Refill Encounter Details Date Type Department Care Team (Late st Contact Info) Description 08/24/2023 Refill [facility] PRIMARY CARE [address] [place] [address] Mohit Chávez DO [address] [place], [place] [id number] Type 2 diabetes mellitus without complication, unspecified whether assisted insulin use Social History Tobacco Use Types [...] Description 05/01/2025 2:00 PM EDT Office Visit [facility] PRIMARY CARE [address] [place] [address] Mohit Chávez DO [address] [place] [address] documented as of this encounter Visit Diagnoses Diagnosis Type 2 diabetes mellitus without complication, unspecified whether assisted insulin use documented in this encounter Care Teams Water Aerobics Instructor Relationship Specialty Start Date End Date Mohit Chávez DO [address] [place], [place] [phone] PCP - General Family Medicine 03/08/21 documented as of this encounter
--- OUTSIDE RECORDS SUMMARY | 2024-12-19 07:59 | XMS_ITS | Encounter Summary ---
Author Organization [facility] Address [address] [place] [address] Care Team Providers Care Final Block Press Operator Name Role Phone Kyler Mohit Cervantes DO Primary Care Provider [phone] Encounter Details Date Type Department Care Team (Latest Contact Info) Description 11/25/2024 Travel Social History Tobacco Use Types Packs/Day [...] Building Surgery Spine & Joint [address] [facility], [address] [place] [address] Basim Black MD [address] [facility] [address] [place] [address] 02/27/2025 11:00 AM EST Pre-Admission Testing [facility] Anesthesia [address] [place] [address] 02/27/2025 11:40 AM EST Clinical Support [facility] Laboratory Services [address] [facility], 1st [place] [address] 03/14/2025 10:30 AM EST Hospital Encounter [facility] S Operating Room [address] [place] [address] Basim Black MD [address] [place] [address] 03/14/2025 10:30 AM EST - 03/14/2025 12:55 PM EST Surgery [facility] S Operating Room [address] [place] [address] Basim Black MD [address] [place] [address] ARTHROPLASTY, KNEE, TOTAL [[id number] (CPT )] 03/22/2025 3:40 PM EST Office Visit [facility] Endocrinology [address] [place] [address] Delicia Miner S, STEEL GRINDER [address] [place] [address] 03/29/2025 1:30 PM EST Office Visit Medical Office Building Surgery Sp[facility] [address], [address] [place] [address] Vasu Yanez, SHAYNA [address] [place] [address] 04/26/2025 11:00 AM EDT Office Visit Medical Office Building [facility] [address], [address] [place] [address] Basim Black MD [address] [place] [address] Scheduled Procedures Name Priority Associated [...] filedocumented in this encounter Additional Health Concerns Active Problems Noted Date Diagnosed Date Autogenerated Problem 11/25/2024 Assessment Noted Time A fall risk assessment has been complete d for the patient 11/25/2024 10:16 AM EDT A Body Mass Index follow-up plan has been documented for the patient 11/25/2024 12:35 PM EDT documented as of this encounter Care Teams Final Block Press Operator Relationship Specialty Start Date End Date Mohit Chávez DO [address] [place] [address] PCP - General 06/06/24 documented as of this encounter
--- OUTSIDE RECORDS SUMMARY | 2024-12-19 07:59 | XMS_ITS | Encounter Summary ---
Author Organization [facility] Address [address] [place] [address] Care Team Providers Care Film Casting Operator Name Role Phone Mohit Chávez DO Primary Care Provider [phone] Reason for Visit * Reason Onset Date Comments Med Refill 07/07/2024 Encounter Details Date Type Department Care Team (Late st Contact Info) Description 07/07/2024 Refill [facility] PRIMARY CARE [address] [place] [address] Mohit Chávez DO [address] [place] [id number] Social History Tobacco Use Types Packs/Day Years [...] Ramon Relationship: Self Best call back number: [phone] Requested Prescriptions: Requested Prescriptions Pending Prescriptions Disp Refills chlorthalidone (HYGROTON) 25 MG tablet Sig: Take 0.5 tablets by mouth Daily. Pharmacy where request should be sent: [facility] [phone] Last office visit with prescribing clinician: 07/06/2024 [...] [facility]ARE [address] [place] [address] Mohit Chávez DO [address] [facility] [place] [address] documented as of this encounter Visit Diagnoses Not on filedocumented in this encounter Care Teams Film Casting Operator Relationship Specialty Start Date End Date Mohit Chávez DO [address] [facility], [place] [address] PCP - General Family Medicine 03/08/21 documented as of this encounter
--- OUTSIDE RECORDS SUMMARY | 2024-12-19 08:00 | XMS_ITS | Encounter Summary ---
Author Organization [facility] Address [address] [place] [phone] Care Team Providers Care Stenciling Machine Tender Name Role Phone Mohit Chávez DO Primary Care Provider [phone]- [phone] Reason for Visit * Reason Onset Date Comments Med Refill 12/17/2022 Encounter Details Date Type Department Care Team (Late st Contact Info) Description 12/17/2022 Refill [facility] PRIMARY CARE [address] [place] [phone] Mohit Chávez DO [address] [place] [address] Type 2 diabetes mellitus without complications Social [...] Ramon Relationship: Self Best call back number: [phone] Requested Prescriptions: Requested Prescriptions Pending Prescriptions Disp Refills insulin aspart (NovoLOG FlexPen) 100 UNIT/ML solution pen-injector sc pen 15 mL 5 Levemir FlexTouch 100 UNIT/ML injection Pharmacy where request should be sent: [facility] [place] [address] [address] - [phone] PH - [phone] FX Last office visit with prescribing clinician: [...] Description 05/01/2025 2:00 PM EDT Office Visit [facility] PRIMARY [facility]ARE [address] [place] [address] Mohit Chávez DO [address] [place], [place] [phone] documented as of this encounter Visit Diagnoses Diagnosis Type 2 diabetes mellitus without complications documented in this encounter Care Teams Stenciling Machine Tender Relationship Specialty Start Date End Date Mohit Chávez DO [address] [place] [address] PCP - General Family Medicine 03/08/21 documented as of this encounter
--- OUTSIDE RECORDS SUMMARY | 2024-12-19 08:00 | XMS_ITS | Encounter Summary ---
Author Organization [facility] Address [address] [place] [address] Care Team Providers Care Apple Picker Name Role Phone Mohit Chávez DO Primary Care Provider [phone]- [phone] Reason for Visit * Reason Onset Date Comments Med Refill 08/01/2022 Encounter Details Date Type Department Care Team (Late st Contact Info) Description 08/01/2022 Refill [facility] PRIMARY CARE [address] [place] [phone] Mohit Chávez DO [address] [place] [phone] Type 2 diabetes mellitus without complications Social [...] Ramon Relationship: Self Best call back number: [phone] Requested Prescriptions: Requested Prescriptions Pending Prescriptions Disp Refills insulin aspart (NovoLOG FlexPen) 100 UNIT/ML solution pen-injector sc pen 15 mL 5 Pharmacy where request should be sent: [facility] - [phone] PH - [phone] FX Last office visit with prescribing clinician: [...] Description 05/01/2025 2:00 PM EDT Office Visit [facility] [address] [place] [address] Mohit Chávez DO [address] [place] [address] documented as of this encounter Visit Diagnoses Diagnosis Type 2 diabetes mellitus without complications documented in this encounter Care Teams Apple Picker Relationship Specialty Start Date End Date Mohit Chávez DO [address] [place] [address] PCP - General Family Medicine 03/08/21 documented as of this encounter
--- OUTSIDE RECORDS SUMMARY | 2024-12-19 08:00 | XMS_ITS | Encounter Summary ---
Author Organization [facility] Address [address] [place] [address] Care Team Providers Care Field Crop Ii Farmworker Name Role Phone Khang Brown MD Primary Care Provider [phone] Mohit Chávez DO Primary Care Provider [phone] Reason for Referral * Consultation (Routine) - Closed Specialty Diagnoses / Procedures Referred By Blessing chen Referred To Contact Hand Surgery Diagnoses Other bursal cyst, left hand Guy Bunch, ALEKSEY [address] [place] [address] Phone: tel: fax: [facility] [address] [place] [address] Phone: tel: fax: Referral ID Status Reason Start Date Expiration Date V isits Requested Visits Authorized [id number] Closed Specialty Services Required 10/22/2022 04/22/2024 1 1 Encounter Details Date Type Department Care Team (Late st Contact Info) Description 10/22/2022 Community [facility] Community Practice [address] [place] [address] Guy Bunch APRN [address] [place] [address] Other bursal cyst, left [...] Building Surgery Spine & Joint [address] [facility] [place] [address] Basim Black MD [address] [facility] [address] [place] [address] 02/27/2025 11:00 AM EST Pre-Admission Testing [facility] Anesthesia [address] [place] [id number] 02/27/2025 11:40 AM EST Clinical Support [facility] Laboratory Services [address] [facility], 1st [place] [address] 03/14/2025 10:30 AM EST Hospital Encounter P[facility] S Operating Room [address] [place] [address] Basim Black MD [address] [address] 03/14/2025 10:30 AM EST - 03/14/2025 12:55 PM EST Surgery [facility] S Operating Room [address] [place] [address] Basim Black MD [address] [facility] [address] [place] [address] ARTHROPLASTY, KNEE, TOTAL [[id number] (CPT )] 03/22/2025 3:40 PM EST Office Visit [facility] Endocrinology [address] [place] [address] Delicia Miner S, PAINT GR[employer]ER [place] [place] [address] [place] [address] 03/29/2025 1:30 PM EST Office Visit Medical Office Building Surgery Spine & Joint [address] [facility], [address] [place] [address] Vasu Yanez, SHAYNA [address] [place] [address] 04/26/2025 11:00 AM EDT Office Visit Medical Office Building Surgery Spine & Joint [address] [facility], [address] [place] [address] Basim Black MD [address] [facility] [address] [place] [address] Scheduled Procedures Name Priority Associated Diagnoses Date/Ti me ARTHROPLASTY, KNEE, TOTAL Primary osteoarthritis of right knee 03/14/2025 10:30 AM EST Scheduled Referrals Name Type Priority Associated Diagnoses Order Schedule Ambulatory referral to Hand Surgery Outpatient Referral Routine Other bursal cyst, left hand Expected: 10/22/2022 (Approximate), Expires: 04/21/2024 documented as of this encounter Visit Diagnoses Diagnosis Other bursal cyst, left hand- Primary Primary osteoarthritis of right knee documented in this encounter Additional Health Concerns Assessment Noted Time A fall risk assessment has been complete d for the patient 09/17/2022 1:32 PM EDT A Body Mass Index follow-up plan has been documented for the patient 09/17/2022 2:15 PM EDT documented as of this encounter Care Teams Field Crop Ii Farmworker Relationship Specialty Start Date End Date Khang Brown MD [address] [place] [address] PCP - General 06/29/20 06/05/24 Mohit Chávez DO [address] [place] [address] PCP - General 06/06/24 documented as of this encounter
--- OUTSIDE RECORDS SUMMARY | 2024-12-19 08:00 | XMS_ITS | Clinical Summary ---
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 Acti ve Green Tea 150 MG capsule Take by mouth. Activ e Chadwick-3 Fatty Acids (fish oil) 1000 MG capsule capsule Take 2 capsules by mouth Daily. Active bacitracin-polym yxin b (POLYSPORIN) [id number] UNIT/GM ophthalmic ointment Active latanoprost (XALATAN) 0.005 % ophthalmic solution LOCATION: RIGHT EYE. APPLY ONE DROP TO THE RIGHT EYE ONCE DAILY AT BEDTIME Active Lactobacillus Rhamnosus, GG, (RA Probiotic Digestive Care) capsule Take 1 capsule by mouth Daily. Active acyclovir (ZOVIRAX) 400 MG tablet Take 1 tablet by mouth Every 6 (Six) Hours. Active Jardiance 25 MG tablet tabletIndication s:Type 2 diabetes mellitus without complication, with long-term current use of insulin TAKE ONE TABLET BY MOUTH EVERY DAY 30 tablet Active glucose monitor monitoring kit Use to test glucose four times daily. 1 each Active promethazine-dex tromethorphan (PROMETHAZINE-DM ) 6.25-15 MG/5ML syrup Take 5 mL by mouth 4 (Four) Times a Day As Needed for Cough. 180 mL 023 Active Blood Glucose Monitoring Suppl (LinguaNext Verio Flex System) w/Device kit by Other route 4 (Four) Times a Day. use to test blood sugar 023 Active timolol (TIMOPTIC) 0.5 % ophthalmic solution 024 Active B-D UF III MINI PEN NEEDLES 31G X 5 MM miscIndications: Type 2 diabetes mellitus without complication, with long-term current use of insulin Use to inject up to 4 times daily 100 each 4 024 Active HYDROcodone-acet aminophen (NORCO) 5-325 MG per tablet Take 1 tablet by mouth Every 6 (Six) Hours As Needed for Other (Drowsiness). Active ondansetron ODT (ZOFRAN-ODT) 8 MG disintegrating tabletIndication s:Type 2 diabetes mellitus without complication, with long-term current use of insulin Place 1 tablet on the tongue Every 8 (Eight) Hours As Needed for Nausea or Vomiting. 9 tablet 2 024 Active tadalafil (CIALIS) 10 MG tablet TAKE 1 TABLET BY MOUTH DAILY NEEDED FOR ERECTILE DYSFUNCTION. 10 tablet 2 024 Active nystatin (MYCOSTATIN) 100,000 unit/mL suspensionIndica tions:Oral thrush SWISH AND SWALLOW 5 ML 4 (FOUR) TIMES A DAY. 120 mL 024 Active diazePAM (Valium) 2 MG tabletIndication s:Grief reaction Take 1 tablet by mouth 2 (Two) Times a Day As Needed for Anxiety or Sedation. 30 tablet 024 Active Sodium Fluoride (Denta 5000 Plus) [...] succinate XL (TOPROL-XL) 25 MG 24 hr tabletIndication s:Primary hypertension Take 0.5 tablets by mouth Daily. 45 tablet 1 025 Active Lantus SoloStar 100 UNIT/ML injection pen [id number] UNITS SUBCUTANEOUSLY AT NIGHT 025 Active Continuous Glucose Sensor (FreeStyle Art 2 Sensor) miscIndications: Type 2 diabetes mellitus without complication, with long-term current use of insulin USE 1 EACH EVERY 14 (FOURTEEN) DAYS. 6 each 2 025 Active glucose blood (OneTouch Verio) test stripIndications :Type 2 diabetes mellitus without complication, with long-term current use of insulin 1 each by Other route 5 (Five) Times a Day. use to test blood sugar 5 times daily 50 each 10 025 Active polyethylene glycol (MIRALAX) 17 g packetIndication s:Drug-induced constipation Take 17 g by mouth Daily. Dissolve in 12oz water 30 each 025 Active timolol (BETIMOL) 0.5 % ophthalmic solution Administer 1 drop to both eyes Daily. 025 Active Insulin Lispro, 1 Unit Dial, (HUMALOG) 100 UNIT/ML solution pen-injectorIndi cations:Type 2 diabetes mellitus without complication, with long-term current use of insulin Inject 10-15 Units under the skin into the appropriate area as directed 3 (Three) Times a Day Before Meals. 15 mL 2 025 Active amLODIPine (NORVASC) 10 MG tablet TAKE 1 TABLET BY MOUTH ONCE DAILY 90 tablet 1 025 Active sertraline (ZOLOFT) 25 MG tablet TAKE 1 TABLET BY MOUTH ONCE DAILY 90 tablet 1 025 Active Accu-Chek FastClix Lancets misc Use to check blood glucose up to 3 times daily 102 each 11 025 Active triamcinolone (KENALOG) 0.1 % creamIndications :Other eczema APPLY TOPICALLY TO THE APPROPRIATE AREA TWICE A DAY DIRECTED 30 g 3 025 Active rosuvastatin (CRESTOR) 10 MG tablet TAKE 1 TABLET BY MOUTH ONCE DAILY 90 tablet 1 025 Active amLODIPine (NORVASC) 5 MG tabletIndication s:Primary hypertension TAKE 1 TABLET BY MOUTH EVERY DAY 90 tablet 025 Active Mounjaro 12.5 MG/0.5ML solution auto-injectorInd ications:Type 2 diabetes mellitus without complication, with long-term current use of insulin Inject 0.5 mL under the skin into the appropriate area as directed 1 (One) Time Per Week. 6 mL 025 Active hydrOXYzine (ATARAX) 25 MG tabletIndication s:Grief reaction TAKE 1-2 TABLETS BY MOUTH 30-60 MINS BEFORE BEDTIME NEEDED FOR INSOMNIA, ALLOWING AT LEAST 7 HOURS BEFORE SCHEDULED WAKE UP TIME 180 tablet 025 Active Xarelto 20 MG tablet TAKE 1 TABLET BY MOUTH EVERY DAY 30 tablet 1 025 Active lisinopril (PRINIVIL,ZESTRI L) 40 MG tabletIndication s:Primary hypertension TAKE 1 TABLET BY MOUTH ONCE DAILY 90 tablet 1 025 Active chlorthalidone (HYGROTON) 25 MG tabletIndication s:Primary hypertension TAKE 0.5-1 TABLETS BY MOUTH DAILY. 90 tablet 025 Active albuterol sulfate HFA (Ventolin HFA) 108 (90 Base) MCG/ACT inhaler TAKE 2 PUFFS BY MOUTH 4 TIMES A DAY 18 g 025 Active cetirizine (zyrTEC) 10 MG tablet TAKE 1 TABLET BY MOUTH EVERY DAY 90 tablet 025 Active omeprazole (priLOSEC) 40 MG capsule TAKE 1 CAPSULE BY MOUTH EVERY DAY 90 capsule 3 025 Active traMADol (ULTRAM) 50 MG tabletIndication s:Chronic pain of both knees Take 1 tablet by mouth 5 (Five) Times a Day As Needed for Moderate Pain. 150 tablet 2 025 Active omeprazole (priLOSEC) 40 MG capsule Take 1 capsule by mouth Daily. 90 capsule 3 024 2024 Discontinued albuterol sulfate HFA (Ventolin HFA) 108 (90 Base) MCG/ACT inhaler Inhale 2 puffs 4 (Four) Times a Day. 18 g 11 024 2024 Discontinued traMADol (ULTRAM) 50 MG tabletIndication s:Chronic pain of both knees Take 1 tablet by mouth 5 (Five) Times a Day As Needed for Moderate Pain. 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 supervisor solder making Start Ozempic 0.25mg, increase to 0.5mg weekly [...] Encounters Date Type Department Care Team Description 12/12/2024 [facility] [address] [place] [phone] Mohit Chávez, DO Primary hypertension 12/12/2024 Refill [facility] [address] [place] [phone] Mohit Chávez, DO Chronic pain of both knees 12/11[facility] [address] [place] [phone] Mohit Chávez, DO 12/01/2024 Refill [facility] [address] [place] [place] [address] Mohit Chávez, DO 11/26/2024 Refill [facility] [address] [place] [phone] Mohit Chávez, DO 11/18/2024 Telephone [facility] [address] [place] [address] Mohit Chávez, DO RSV IMMUNIZATION 11/17/2024 Refill [facility] [address] [place] [phone] Mohit Chávez, DO Primary hypertension 11/14/2024 Refill [facility] [address] [place] [address] Mohit Chávez, 11/08/2024 Refill [facility] [address] [place] [address] Mohit Chávez, DO Grief reaction 11/01/2024 1:00 PM EDT Office Visit [facility] [address] [place] [address] Mohit Chávez, DO Type 2 diabetes mellitus without complication, with long-term current use of insulin (Primary Dx); Colon cancer screening 11/01/2024 Travel 10/31/2024 Refill [facility] [address] [place] [address] Mohit Chávez, Primary hypertension 10/09/2024 Refill [facility] [address] [place] [address] Mohit Chávez, DO Other eczema from Last 3 Months Immunizations Immunization Administration [...] Pulse 77 11/01/2024 1:02 PM EDT Temperature 36.2 C (97.2 F) 10/27/2023 2:52 PM EDT Respiratory Rate 20 10/27/2023 2:52 PM EDT Oxygen Saturation 98% 11/01/2024 1:02 PM EDT Inhaled Oxygen Concentration - - Weight 97.5 kg (215 lb) 11/01/2024 1:02 PM EDT Height 175.3 cm (5' 9.02 ) 11/01/2024 1:02 PM ED T Body Mass Index 31.73 11/01/2024 1:02 PM EDT Plan of Treatment Upcoming Encounters Date Type Department Care Team (Late st Contact Info) Description 05/01/2025 2:00 PM EDT Office Visit [facility] [address] [place] [address] Mohit Chávez DO [address] [place] [address] Health Maintenance Due Date Last Done Comments DIABETIC FOOT EXAM 1970 COLOGUARD 2005 COLON CANCER SCREENING 5 YEA R SIGMOIDOSCOPY 2005 COLONOSCOPY [address]ER SCREENING 2005 CT COLONOGRAPHY 2005 FECAL OCCULT BLOOD TEST 2005 FIT Testing (1 year) 2005 ANNUAL PHYSICAL 03/08/2021 HEPATITIS C SCREENING 03/08/2021 INFLUENZA VACCINE 09/16/2024 12/01/2023, , 11/13/2021, Additional history exists DIABETIC EYE EXAM 03/01/2025 03/01/2024, , 03/13/2023, Additional history exists HEMOGLOBIN A1C 03/22/2025 09/19/2024, 08/0 05/2024, 04/29/2024, Additional history exists LIPID PANEL 04/29/2025 04/29/2024, [...] Relevant to Health Maintenance Results * (ABNORMAL) Lipid Panel (04/29/2024 10:50 AM EDT) Total Cholesterol 138 0 - 200 mg/dL 04/29/2024 8:11 PM EDT [facility] Triglycerides 139 0 - 150 mg/dL 04/29/2024 8:11 PM EDT [facility] HDL Cholesterol 38(L) 40 - 60 mg/dL 04/29/2024 8:11 PM EDT [facility] LDL Cholesterol 75 0 - 100 mg/dL 04/29/2024 8:11 PM EDT [facility] VLDL Cholesterol 25 5 - 40 mg/dL 04/29/2024 8:11 PM EDT [facility] LDL/HDL Ratio 1.90 04/29/2024 8:11 PM EDT [facility] Blood Venipuncture / Unknown 04/29/2024 10:50 AM EDT 04/29/2024 10:50 AM EDT Narrative [facility] - 04/29/2024 8:11 PM EDT Cholesterol [...] Chávez DO LAB BLOOD ORDERABLES Final Result [facility]
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
--- OUTSIDE RECORDS SUMMARY | 2024-12-19 08:00 | XMS_ITS | Data Portability ---
Author Organization [facility] & JAROD Bashir ADMIN Address [address] [place] [address] Care Team Providers Care Distribution Lineman Name Role Phone LAKSHMI ALVES Primary Care Provider BLAYNE CONNOQUENESSING Engagement Specialist Assessment No assessment recorded. Plan of Treatment Reminders Order Date Submit Date Provider Last Modified By Organization Details Last Modified Time Details Appointments None recorded. Lab None recorded. Referral None recorded. Procedures None recorded. Surgeries None recorded. Imaging pharmacolog ic nuclear stress test 2023 024 [email or web address] 1 [facility], [address], [place], [address], 4 13:09:27 electrocard iogram 2022 023 BIA [facility], [address], [place], [address], 3 10:08:22 US, echocardiog collin, transthorac ic, complete, w/ color flow 2022 023 [email or web address] [facility], [address], [place], [address], 3 09:40:56 Medication Orders None recorded. Patient TargetsNo targets recorded. Patient InstructionsNo instructions recorded. Reason for Referral None Reported. Results Created Date Observation Date Name Description Value Unit Range Abnormal Flag Note LastModifiedBy Organization Detail LastModifiedTime 10/16/1906/03/2018 elect rocar diogr am No observ ation record ed. BARCODE Not Available 2022 09:43:56 10/16/1906/04/2018 US, echoc aromega hilario, trans thora cic, compl ete, w/ color flow No observ ation record ed. BARCODE Not Available 2022 09:43:56 10/28/19 23 10/28/2022 elect rocar diogr am No observ ation record ed. [facility] [address], [place], [address], 10/28/2022 10:47:15 10/29/1910/27/2022 elect rocar diogr am No observ ation record ed. [facility] [address], [place], [address], 10/28/2022 10:08:23 11/07/1910/31/2022 [facility] [address] [place] [address] Phone: Fax: Name: TONY RAMON Exam Date: 023 : 961 Age 62 Gender : M Access ion: [id number] Physic carlee: DEREK GORDON ty: [facility] Genevieve ty HSV: Outpat ient Exam: ECHO W SPEC COLOR FLOW Reason for Study: dyspne a SUMMAR Y Poor qualit y study. Normal LV size with normal functi on. The ejecti on fracti on is 60-65% . Left ventri cular fillin g patter n is indete rminat e. INTERP RETATI ON DETAIL Poor qualit y study. Left ventri amy: The left ventri amy is normal in size with normal systol ic functi on. The ejecti on fracti on is 60-65% . There is top normal LV wall thickn ess. LV geomet ry is normal . The left ventri cular wall motion is normal . The left ventri cular fillin g patter n is indete rminat e. Left atrium : The left atrium is normal . LA volume : 53.7mL , LA volume index: 22.9mL /mA . Right ventri amy: The right ventri amy is normal in size with normal functi on. Right atrium : The right atrium is normal . Mitral valve: The mitral valve is mildly thicke shamar. There is modera te mitral annula r calcif icatio n. There is no mitral stenos is. There is trace mitral regurg itatio n. Aortic valve: The aortic valve is trivia lly thicke shamar. There is with a valve area of 2.87 announcer (Peak grad=1 8mmHg, Mean grad=9 mmHg, LVOT tomy=2. 40cm, LVOT TVI=26 .8cm, Ao TVI=42 .3cm). The dimens ionles s index is 0.63. AV peak veloci bg=137 cm/sec . Tricus pid valve: The tricus pid valve is normal . There is no tricus pid regurg itatio n, so PA pressu re cannot be estima don. Pulmon ic valve: The pulmon ic valve is normal . There is mild pulmon ic regurg itatio n. Perica rdium: The perica rdium is normal . Intera trial septum : The intera trial septum is normal . Aorta: The aorta is normal . The aortic root is normal . Aortic dimens ions - Ao M-mode = 3.40cm , Ascend ing=3. 20cm. Vena Cava: The inferi or vena cava is normal . Miscel laneakash s: A periph eral IV inject ion of Optiso n (Perfl utr protei n-type A [employer] pherTDI Bassline ) was perfor med to enhanc e endoca rdial defini tion. MEASUR EMENTS Left Ventri amy IVSd: 1.04cm (0.6-1 .1cm) PWd: 1.07cm (0.6-1 .1cm) Mass Carmelita: 147g LVMI: 63g/mA (>50-9 5g/m) LVIDd: 4.18cm (3.7-5 .6 cm) LVIDdI : 1.78cm /m2 LVIDs: 2.43cm (1.8-4 .2 cm) LVIDsI : 1.03cm /m2 RWT: 0.51 ( E to A: 0.85 (0.6-2 ) E-e prime med: 17.50 Decel: 322.00 ms (168-2 32ms) Right Ventri amy Mid RV Tomy: 3.1cm (2.7-3 .3cm) Legall y sarah ticate d by HEIDI Spence 11-06 11:40: 13 Max Valve Veloci ties AV peak j carlos: 212cm/ sec LVOT: 124.00 cm/sec Atria LA AP: 4.8cm LA vol: 53.7mL DESTINY: 22.9mL /mA (16-28 ml/m^2 ) Derek Gordon MD Electr onical ly signed by Dr. Derek Gordon on 2022 at 11:40 AM Dictat ed By: DEREK GORDON Transc ribed By: Transc ribed On: 023 11:40 AM Electr onical ly signed by: DEREK GORDON 023 Thank you for referr TONY Carmen to [facility]. Octavia hernandez by HEIDI Spence 11-06 11:40: 13 CC'ed Logic: Orderi ng Provid er: HEIDI LICONA Attend ing Provid er: HEIDI LICONA Referr ing Provid er: HEIDI LICONA Admitt ing Provid er: HEIDI LICONA [facility] [address], [place], [address], 11/10/2022 08:34:05 Result Notes None recorded. Problems Name Problem SNOMED Code Status Onset Date Resolution Date Notes Provider Name and Address Organization Details Recorded Time Chest pain 99730154 Active 2022 Derek Gordon MD [address] , [place], [address] , [facility] & [place] 3 11:36:04 Dyspnea on exertion 21938857 Active 2022 Derek Gordon MD [address] , [place], [address] , [facility] & [place] 3 11:36:15 Essential hypertension 21465996 Active 2022 Derek Gordon MD [address] [facility], [place], [address] , [facility] & [place] 3 11:40:08 Problem Notes None recorded. Procedures Surgical History Date Name Laterality Status Provider Name and Address Organization Details Recorded Time 3 Xcapsl ctrc rmvl cplx wo ecp completed Esther Rome [place] - [facility] & [place] 10/27/2022 11:16:51 Cataract surg w/iol 1 stage completed Ilda Bowers [facility] & [place] 10/28/2023 14:16:31 Imaging Results None recorded. Procedure Notes None recorded. Medical Equipment None Reported. Allergies No known drug allergies Medications Name Sig Start Date Stop Date Status Note LastModified by Organization Details LastModified Time amoxicillin 500 mg capsule TAKE ONE CAPSULE BY MOUTH THREE TIMES DAILY -- FINISH ALL MEDICINE -- 10/27 completed Not Available Not Available Not Available latanoprost 0.005 % eye drops INSTILL 1 DROP INTO BOTH EYES AT BEDTIME active Not Available Not Available No t Available promethazin e-DM 6.25 mg-15 mg/5 mL oral syrup take 5 ML BY MOUTH FOUR TIMES DAILY NEEDED FOR cough 10/27 completed Not Available Not Available Not Available nystatin 100,000 unit/mL oral suspension SWISH AND SWALLOW 5 ML BY MOUTH 4 (FOUR) TIMES A DAY. active Not Available Not Available No t Available cetirizine 10 mg tablet TAKE 1 TABLET BY MOUTH EVERY DAY active Not Available Not Available No t Available fluconazole 150 mg tablet TAKE ONE TABLET BY MOUTH EVERY 3 DAYS 10/27 completed Not Available Not Available Not Available hydrocodone 5 mg-acetamin ophen 325 mg tablet TAKE ONE TABLET BY MOUTH EVERY 6 HOURS MAY CAUSE DROWSINES S active Not Available Not Available No t Available glipizide 10 mg tablet TAKE 1 TABLET BY MOUTH EVERY DAY active Not Available Not Available No t Available chlorthalid one 25 mg tablet TAKE 1 TABLET BY MOUTH EVERY DAY active Not Available Not Available No t Available omeprazole 40 mg capsule,del ayed release TAKE 1 CAPSULE BY MOUTH EVERY DAY active Not Available Not Available No t Available tramadol 50 mg tablet TAKE 1 TABLET BY MOUTH EVERY 6 HOURS NEEDED FOR MODERATE PAIN active Not Available Not Available No t Available ondansetron 8 mg disintegrat ing tablet DISSOLVE 1 TABLET ON TONGUE EVERY 8 HOURS NEEDED FOR NAUSEA/VO MITING active Not Available Not Available No t Available fenofibrate micronized 134 mg capsule TAKE ONE CAPSULE BY MOUTH EVERY DAY IN THE MORNING BEFORE breakfast active Not Available Not Available No t Available ketorolac 0.5 % eye drops INSTILL 1 DROP IN THE RIGHT EYE THREE TIMES DAILY (EVERY 8 HOURS) FOR 2 WEEKS, THEN TAPER WEEKLY DIRECTED active Not Available Not Available No t Available ciclopirox 8 % topical solution APPLY ONCE DAILY TO AFFECTED AREA. CLEANSE WITH ALCOHOL PRIOR TO NEXT USE active Not Available Not Available No t Available prednisolon e acetate 1 % eye drops,suspe nsion INSTILL 1 DROP IN THE RIGHT EYE THREE TIMES DAILY (EVERY 8 HOURS) FOR 2 WEEKS, THEN TAPER WEEKLY DIRECTED active Not Available Not Available No t Available amlodipine 10 mg tablet TAKE 1 TABLET BY MOUTH EVERY DAY active Not Available Not Available No t Available neomycin-po lymyxin-dex ameth 3.5 mg/mL-10,00 0 unit/mL-0.1 % eye drops active Not Available Not Available Not Available sertraline 25 mg tablet TAKE 1 TABLET BY MOUTH EVERY DAY active Not Available Not Available No t Available metoprolol succinate ER 25 mg tablet,exte nded release 24 hr TAKE 1 TABLET BY MOUTH EVERY DAY active Not Available Not Available No t Available timolol maleate 0.5 % eye drops INSTILL 1 DROP INTO BOTH EYES EVERY DAY active Not Available Not Available No t Available atropine 1 % eye drops instill 1 drop IN THE LEFT EYE TWICE DAILY 3 DAYS prior TO surgery 10/27 completed Not Available Not Available Not Available lisinopril 40 mg tablet TAKE 1 TABLET BY MOUTH EVERY DAY active Not Available Not Available No t Available amoxicillin 875 mg-potassiu m clavulanate 125 mg tablet TAKE ONE TABLET BY MOUTH TWICE DAILY FOR 10 DAYS --TAKE WITH FOOD-- -- FINISH ALL MEDICINE -- 10/27 completed Not Available Not Available Not Available Ventolin HFA 90 mcg/actuati on aerosol inhaler TAKE 2 PUFFS BY MOUTH 4 TIMES A DAY active Not Available Not Available No t Available Denta 5000 Plus 1.1 % cream USE DIRECTED active Not Available Not Available No t Available Novolog FlexPen U-100 Insulin aspart 100 unit/mL (3 mL) subcutaneou s INJECT 35-45 UNITS SUBCUTANE OUSLY THREE TIMES DAILY (BEFORE MEALS) active Not Available Not Available No t Available Vigamox 0.5 % eye drops instill 1 drop in THE operative eye FOUR TIMES DAILY, beginning 2 DAYS prior TO surgery AND continue FOR 7 DAYS AFTER. 10/27 completed Not Available Not Available Not Available rosuvastati n 10 mg tablet TAKE 1 TABLET BY MOUTH EVERY DAY active Not Available Not Available No t Available tadalafil 10 mg tablet TAKE 1 TABLET BY MOUTH DAILY NEEDED FOR ERECTILE DYSFUNCTI ON. active Not Available Not Available No t Available BD Ultra-Fine Mini Pen Needle 31 gauge x 3/16 USE DIRECTED UP TO 4 TIMES DAILY active Not Available Not Available No t Available chlorhexidi ne gluconate 0.12 % mouthwash RINSE MOUTH WITH 15ML (1 CAPFUL) FOR 30 SECONDS IN MORNING AND EVENING AFTER BRUSHING, THEN SPIT active Not Available Not Available No t Available Levemir FlexPen 100 unit/mL (3 mL) solution subcutaneou s insulin pen INJECT 75 UNITS SUBCUTANE OUSLY EVERY DAY DIRECTED active Not Available Not Available No t Available Lantus Solostar U-100 Insulin 100 unit/mL (3 mL) subcutaneou s pen INJECT 70 UNITS UNDER THE SKIN INTO THE APPROPRIA TE AREA DIRECTED EVERY NIGHT. active Not Available Not Available No t Available Humalog KwikPen (U-100) Insulin 100 unit/mL subcutaneou s INJECT 50 UNITS SUBCUTANE OUSLY WITH MEALS 3 TIMES DAILY. MAX 230 UNITS DAILY active Not Available Not Available No t Available Gavilyte-C 240 gram-22.72 gram-6.72 gram-5.84 gram oral solution mix DIRECTED AND DRINK 240 ML BY MOUTH EVERY 10 minutes UNTIL fecal effluent is CLEAR active Not Available Not Available No t Available GaviLyte-G 236 gram-22.74 gram-6.74 gram-5.86 gram oral solution MIX DIRECTED AND DRINK 240 ML (8 OUNCES) BY MOUTH EVERY 10 MINUTES UNTIL FECAL EFFLUENT IS CLEAR OR OTHERWISE DIRECTED 10/27 completed Not Available Not Available Not Available Xarelto 20 mg tablet TAKE 1 TABLET BY MOUTH EVERY DAY active Not Available Not Available No t Available OneTouch Verio test strips TEST 5 TIMES DAILY active Not Available Not Available No t Available Ilevro 0.3 % eye drops,suspe nsion INSTILL 1 DROP AT BEDTIME IN OPERATED EYE. BEGIN 2 DAYS PRIOR TO SURGERY 10/27 completed Not Available Not Available Not Available Jardiance 25 mg tablet TAKE ONE TABLET BY MOUTH EVERY DAY active Not Available Not Available No t Available OneTouch Verio Flex Meter USE TO test blood sugar FOUR TIMES DAILY active Not Available Not Available No t Available OneTouch Delica Plus Lancet 33 gauge TEST 5 TIMES DAILY DIRECTED active Not Available Not Available No t Available FreeStyle Art 2 Sensor kit CHANGE EVERY 14 DAYS active Not Available Not Available No t Available Mounjaro 5 mg/0.5 mL subcutaneou s pen injector INJECT 1 SYRINGE SUBCUTANE OUSLY ONCE A WEEK active Not Available Not Available No t Available Mounjaro 2.5 mg/0.5 mL subcutaneou s pen injector INJECT 0.5 ML SUBCUTANE OUSLY INTO THE APPROPRIA TE AREA DIRECTED ONCE WEEKLY active Not Available Not Available No t Available Ozempic 0.25 mg or 0.5 mg (2 mg/3 mL) subcutaneou s pen injector active Not Available Not Available Not Available Vitals Date Recorded Body weight Body mass index (BMI) Body height Oxygen saturation Oxygen saturation in Arterial blood by Pulse oximetry Heart rate Systolic And Diastolic Provider Name and Address Organization Details Last Updated DateTime 3 932445. 09 g 36.9 kg/m2 175.26 cm 96 % 96 % 68 /min 106/70 mm[Hg] Esther WILLARD [facility] & [place] 3 11:18:09 Date Recorded Body height Body mass index (BMI) Body weight Oxygen saturation Oxygen saturation in Arterial blood by Pulse oximetry Heart rate Systolic And Diastolic Provider Name and Address Organization Details Last Updated DateTime 4 175.26 cm 35.6 kg/m2 956174. 76 g 97 % 97 % 77 /min 116/70 mm[Hg] Ilda Bowers [facility] & [place] 4 14:19:24 Social History Question Answer Notes LastModified by Organizat ion Details LastModified Time Tobacco Smoking Status Never Smoker MONTSE Soria [facility] & [place]en 10/27/2022 11:16:03 What Is Your Level Of Caffeine Consumption? Moderate [id number] Information not available 10/28/2023 Sex: Unknown Functional Status Question Answer Note LastModified by Organizat ion Details LastModified Time Do you use any illicit or recreational drugs? No Information not available 10/27/2022 What is your level of alcohol consumption? None Information not available 10/27/2022 Mental Status None recorded. Family History Nothing Reported. Medical History No medical history recorded. Past Encounters Encounter ID Performer Location Encounter Start Date Encounter Closed Date Diagnosis/Indication Diagnosis SNOMED-CT Code Diagnosis ICD10 Code Diagnosis IMO Codes Diagnosis Note [id number] Derek Gordon MD [facility] [address] [place] [address] 10/27/2022 10:58:56 10/27/2022 11:43:46 Chest pain 74217741 R07.9 atypical symptoms, fleeting lasting few seconds unrelated to activity. Will obtain echocardio gram to evaluate EF wall motion abnormalit y. Clinically monitor.He is on chronic anticoagul ation for history of PE Dyspnea on exertion 6084 5006 R06.09 Echo to evaluate EF, diastolic function, valves and pulmonary pressures Essential hypertension 68415119 I10 Continue current medication .Keep logLow-dawit t diet < 2 gm Na/day,Reg ular exerciseWe ight loss History of pulmonary embolus 451096075 Z86.711 on Xarelto Body mass index 30+ - obesity 706081133 Z68.36 Low-carboh ydrate and low-fat dietIncrea se exercise to 30 minutes a day.Increa se fruits and fresh vegetable intake and decrease processed foods and sugars [id number] Derek Gordon MD [facility] [address] [place] [address] 10/28/2023 14:10:23 10/28/2023 14:36:31 Chest pain 94522548 R07.9 Given clinical presentati on and risk profile , will get stress test for ischemic evaluation and risk stratifica tion Essential hypertension 45441926 I10 Continue current medication .Keep logLow-dawit t diet < 2 gm Na/day,Reg ular exerciseWe ight loss History of pulmonary embolus 991408270 Z86.711 on Xarelto Body mass index 30+ - obesity 810318550 Z68.36 Low-carboh ydrate and low-fat dietIncrea se exercise to 30 minutes a day.Increa se fruits and fresh vegetable intake and decrease processed foods and sugars Health Concerns Section Related Observation LastModified by Organization Detai ls LastModified Time None Recorded Concern Status LastModified by Organization Details LastModified Time None Recorded Advance Directives Directive None Recorded Payers Insurance Date Sequence Insurance Name Policy Number Policy Segal Covered Member ID Segal Member ID Guarantor Name 12/07/2023 1 [employer] [place] (MEDICAID HMO) Tony Lloyd Tristen [id number] Tony Lloyd Tristen 10/28/2023 1 [place] [facility] [id number] Tony Lloyd Tristen [id number] Tony Lloyd Tristen 10/28/2023 [employer] AUTO INSURANCE [id number] Tony Lloyd Tristen Ramon 10/28/2023 [employer] AUT[employer]URANCE [id number] Tony Lloyd Tristen Tony Lloyd Tristen Notes Date Note Type Note Provider Name and Address Organization Details Recorded Time 10/27/2022 text/html 59 M who is here for fu.I last saw him in 2019 CP X 2 weeks, sharp, across the rib cage, fleeting, about once/daily, assoc with sob.he is a history of pulmonary embolism in 2019 and he was concerned about this and hence came back here to see us. He denies any exertional chest pain or shortness of breath. He continues to work. Denies any PND orthopnea palpitations presyncope syncope. +Hypertension-blood pressure high. He does have a high salt intake.+Hyperlipidemi a-on statin therapy+Obesity BMI over 36, he has been working on weight loss.+ pulmonary hypertension PA systolic pressure 50 EKG 10/27/2022 NSR 64 inferior Q-waves, poor precordial R-wave progression CTA 12/31/2018: Small eccentric filling defect within the proximal right lower lobe pulmonary arteries likely residual chronic pulmonary emboli. Evidence of coronary atherosclerosisEchoca rdiogram 06/03/2018: EF 65% RV is moderately dilated with mildly decreased function with evidence of pressure overload with D shaped septum. Mildly dilated right atria, mild TR, moderate pulmonary hypertension with PA systolic pressure over 50. 06/03/2018 with subacute bilateral PE with evidence of myonecrosis with troponin 0.26. Derek Gordon MD [address], [place], [address], [facility] & [place] 10/27/2022 11:45:38 10/28/2023 text/html 63 M who is here for fu.I last saw him in 2022 About 1 month ago had cp was seen in ER-cp- ss, severe, radiates left chest wall, assoc of sob. No PND orthopnea palpitations presyncope syncope. + history of pulmonary embolism in 2019+Hypertension-blo od pressure good+Hyperlipidemia-o n statin therapy+Obesity BMI over 35EKG 10/27/2022 NSR 64 inferior Q-waves, poor precordial R-wave progression CTA 12/31/2018: Small eccentric filling defect within the proximal right lower lobe pulmonary arteries likely residual chronic pulmonary emboli. Evidence of coronary atherosclerosis Echo oor quality study.Normal LV size with normal function. The ejection fraction is 60-65%.Left ventricular filling pattern is indeterminate.Echocar diogram 06/03/2018: EF 65% RV is moderately dilated with mildly decreased function with evidence of pressure overload with D shaped septum. Mildly dilated right atria, mild TR, moderate pulmonary hypertension with PA systolic pressure over 50. 06/03/2018 with subacute bilateral PE with evidence of myonecrosis with troponin 0.26. Derek Gordon MD [address], [place], [address], [place] [facility] [place] 10/28/2023 16:33:09
--- OUTSIDE RECORDS SUMMARY | 2024-12-19 08:00 | XMS_ITS | Encounter Summary ---
Author Organization [facility] Address [address] [place] [id number] Care Team Providers Care Patient Service Technician Pst Name Role Phone Mohit Chávez DO Primary Care Provider [phone] Reason for Visit * Reason Comments Med Refill Encounter Details Date Type Department Care Team (Late st Contact Info) Description 11/08/2024 Refill [facility] [address] [place] [address] Mohit Chávez DO [address] [place] [address] Grief reaction Social History Tobacco Use Types [...] Description 05/01/2025 2:00 PM EDT Office Visit [facility] [address] [place] [address] Mohit Chávez DO [address] [place] [address] documented as of this encounter Visit Diagnoses Diagnosis Grief reaction Adjustment disorder with depressed mood documented in this encounter Care Teams Patient Service Technician Pst Relationship Specialty Start Date End Date Mohit Chávez DO [address] [place] [address] PCP - General Family Medicine 03/08/21 documented as of this encounter
--- OUTSIDE RECORDS SUMMARY | 2024-12-19 08:00 | XMS_ITS | Clinical Summary ---
Author Organization Healthcare Address [address] [place] [address] Care Team Providers Care Business Education Professor Name Role Phone Mohit Chávez DO Primary Care Provider [phone] Allergies No known active allergies Medications amLODIPine [...] ophthalmic solution 03/13/19 24 Active HYDROcodone-acetam inophen ([place]) 5-325 MG tablet TAKE ONE TABLET BY [...] % solution 07/28/19 24 Active nystatin (Mycostatin) 111480 UNIT/ML suspension Use 5 mL (500,000 Units) [...] AT BEDTIME 10/27/19 Active neomycin-polymyxin -dexamethasone (Maxitrol) 3.5-31317-1.1 ophthalmic suspension 10/27/19 24 Active Denta 5000 [...] onetouch verio 120 each 09/20/19 25 Active Hospital, Clinic, or Other Facility Administered Medication Ordered Dose Route Frequency Start Date End Date Status hylan (Synvisc) injection 48 mgIndications:Primary osteoarthritis of both knees 48 mg IX Once 03/31/2022 Active bupivacaine (Marcaine) 0.5 % injection 10 mgIndications:Primary osteoarthritis of right knee,Primary osteoarthritis of left knee 10 mg IJ Once PRN Procedure 11/25/2024 11/25/2024 Ended bupivacaine (Marcaine) 0.5 % injection 10 mgIndications:Primary osteoarthritis of right knee,Primary osteoarthritis of left knee 10 mg IJ Once PRN Procedure 11/25/2024 11/25/2024 Ended triamcinolone acetonide (Kenalog-40) injection 40 mgIndications:Primary osteoarthritis of right knee,Primary osteoarthritis of left knee 40 mg IX Once PRN Procedure 11/25/2024 11/25/2024 Ended triamcinolone acetonide (Kenalog-40) injection 40 mgIndications:Primary osteoarthritis of right knee,Primary osteoarthritis of left knee 40 mg IX Once PRN Procedure 11/25/2024 11/25/2024 Ended lidocaine (Xylocaine) 1 % injection 20 mgIndications:Primary osteoarthritis of right knee,Primary osteoarthritis of left knee 20 mg IX Once PRN Procedure 11/25/2024 11/25/2024 Ended lidocaine (Xylocaine) 1 % injection 20 mgIndications:Primary osteoarthritis of right knee,Primary osteoarthritis of left knee 20 mg IX Once PRN Procedure 11/25/2024 11/25/2024 Ended Active Problems Problem Noted Date Diagnosed Date Acute pain of right shoulder 10/11/2024 Primary osteoarthritis of right knee 06/06/2024 Contusion of rib on left side 09/14/2023 Injury of great toe 09/14/2023 Pulmonary embolism 09/14/2023 Candidal stomatitis 08/04/2023 Other chronic pain 08/04/2023 Keratoconjunctivitis sicca, not specified as Sjogren's, [...] mellitus wit h diabetic neuropathy, unspecified 04/20/2023 Type 2 diabetes mellitus wit h [...] lens 11/04/2022 Other forms of dyspnea 10/31/2022 Dyspnea on exertion 10/27/2022 Cafe au lait [...] (01/23/2021): Added automatically from request for surgery [id number] Age-related nuclear cataract of right eye 2020 [...] [facility] if any. Will monitor for changes. Heel pain 03/04/2019 Degenerative arthritis of knee, [...] Hyperlipidemia with target LDL less than 100 Resolved Problems Problem Noted Date Diagnosed Date Resolved Date Pain in right knee 08/04/2023 Pain in left knee 08/04/2023 11/06/2024 Tinea unguium 04/20/2023 11/06/2024 Chest pain 10/27/2022 11/06/2024 Suspected glaucoma of both eyes 09/24/2020 11/06/2024 Overview (09/14/2023): Last Assessment & Plan: Patient [...] Will need further testing following cataract surgery. Encounters Date Type Department Care Team Description 11/29/2024 Orders Only Medical Office Building [facility] [address] [facility] [address], [address] [place] [address] Vasu Yanez PA Type 2 diabetes mellitus with hyperglycemia, with long-term current use of insulin (Primary Dx) 11/25/2024 10:10 AM EDT Office Visit Medical Office Building [facility] [address], [address] [place] [address] Vasu Yanez PA Primary osteoarthritis of right knee (Primary Dx); Primary osteoarthritis of left knee 11/25/2024 Travel 10/11/2024 1:19 PM EDT - 10/11/2024 11:59 PM EDT [facility] En[facility] [place] [facility] [address] [place] [address] Primary osteoarthritis, right shoulder Discharge Disposition: Home or Self Care 10/11/2024 1:00 PM EDT Office Visit [facility] Orthopa[facility] Surgery & Sports Medicine [address] [place] [address] Frantz Grossman MD Acute pain of right shoulder (Primary Dx) 10/11/2024 Telephone [facility] [address] [place] [address] Frantz Grossman MD HCN - Patient Message 10/11/2024 Travel 10/02/2024 Orders Only External Location [address] [place] [address] Roya Álvarez MD 09/19/2024 3:40 PM EDT [facility] [address] [place] [address] Delicia Miner, CALL CENTER ASSOCIATE Type 2 diabetes mellitus without complication, with long-term current use of insulin (Primary Dx); Class 1 obesity with serious comorbidity and body mass index (BMI) of 32.0 to 32.9 in adult, unspecified obesity type; Hyperlipidemia, unspecified hyperlipidemia type; Hypertension, unspecified type 09/19/2024 Travel from Last 3 Months Immunizations Immunization [...] Pulse 76 11/25/2024 10:14 AM EDT Temperature 36.7 C (98.1 F) 10/11/2024 1:09 PM EDT Respiratory Rate 20 12/17/2022 2:19 PM EDT Oxygen Saturation 99% 11/25/2024 10: 14 AM EDT Inhaled Oxygen Concentration - - Weight 92.5 kg (203 lb 14.8 oz) 025 10:14 AM EDT Height 175.3 cm (5' 9 ) 11/25/2024 10:1 4 AM EDT Body Mass Index 30.11 11/25/2024 10:14 AM EDT Plan of Treatment Upcoming Encounters Date Type Department Care Team (Late st Contact Info) Description 02/27/2025 9:40 AM EST Office Visit Medical Office Building [facility] [address] [facility], [address] [place] [address] [facility]im Black [facility] [address] [facility] [address] [place] [id number] 02/27/2025 11:00 AM EST Pre-Admission Testing [facility] [address] [place] [address] 02/27/2025 11:40 AM EST Clinical Support [facility] [address] [facility] 1st [place] [address] 03/14/2025 10:30 AM EST Hospital Encounter [facility] [address] [place] [address] Basim Black MD [address] [place] [address] 03/14/2025 10:30 AM EST - 03/14/2025 12:55 PM EST Surgery [facility] Room [address] [place] [address] Basim Black MD [address] [place] [address] ARTHROPLASTY, KNEE, TOTAL [[id number] (CPT )] 03/22/2025 3:40 PM EST [facility] [address] [place] [address] Delicia Miner, CALL CENTER ASSOCIATE [address] [place] [address] 03/29/2025 1:30 PM EST Office Visit Medical Office [facility] [address], [address] [place] [address] Vasu Yanez, PA [address] [place] [address] 04/26/2025 11:00 AM EDT Office Visit Medical Office [facility] [address], [address] [place] [address] Basim Black MD [address] [place] [address] Scheduled Procedures Name Priority Associated Diagnoses Date/Ti me ARTHROPLASTY, KNEE, TOTAL Primary osteoarthritis of right knee 03/14/2025 10:30 AM EST Health Maintenance Due Date Last Done Comments [...] - PCV20 or PCV21) 04/17/2023 04/16/2018, 11/22/2015 [id number] Vaccine (2 - season) 2024 04/24/2020 [facility]-Influenza Vaccine (#1) 10/17/202411/30, 02/17/2021, 11/26/2019, Additional history exists [facility]-Diabetes: Hemoglobin A1C 03/19/202505/2024, 04/29/2024, 03/04/2024, Additional history exists [facility]-DTaP,Tdap,and Td Vaccines (2 - Td or Tdap) 09/10/2030 09/10/2020 [facility]-Hepatitis A Vaccines Aged Out 03/04/2019, 08/2018 No longer eligible based on patient's age to complete this topic [facility]-Zoster Vaccines Completed 09/10/2020, [facility]-Obesity Intervention Completed 025, 10/11/2024, 09/19/2024, Additional history exists HPV Vaccines Aged [...] Care Plan Autogenerated Problem No Mariposa Garcia Procedures Procedure Name Priority Date/Time Associated Diagnosis Comments MI ARTHROCENTESIS ASPIR&/INJ MAJOR JT/BURSA W/O US Routine 11/25/2024 10:10 AM EDT Primary osteoarthritis of right knee Primary osteoarthritis of left knee XR SHOULDER RIGHT 2+ VIEWS Routine 10/11/2024 1:45 PM EDT Primary osteoarthritis, right shoulder XR OUTSIDE IMAGES 10/02/2024 4:1 9 PM EDT POCT GLYCOSYLATED HEMOGLOBIN (HGB A1C) Routine 09/19/2024 3:29 PM EDT Type 2 diabetes mellitus without complication, with long-term current use of insulin from Last 3 Months Results * MI ARTHROCENTESIS ASPIR&/INJ MAJOR JT/BURSA W/O US (11/25/2024 [...] to verify the correct patient, procedure, equipment, legal support analyst and site/side marked as required. Patient was prepped and draped in the usual sterile fashion. Procedure, treatment alternatives, risks and benefits explained, specific risks discussed (Risks include but are not limited to pain, bleeding, infection, failure to relieve symptoms). Consent was given by the patient. Immediately prior to procedure a time out was called to verify the correct patient, procedure, equipment, legal support analyst and site/side marked as required. Patient was [...] risk of falling Pre-Operative Imaging X-rays demonstrate [id number] contact. [1] Social History Tobacco Use Smoking Status Never Smokeless Tobacco Never [2] No Known Allergies [3] Social History Tobacco Use Smoking Status Never Smokeless Tobacco Never us Vasu CORRAL IN CLINIC/BEDSIDE ORDERABLES Final Result * XR Shoulder Right 2+ Views (10/11/2024 [...] Hilary ging 10/02/2024 4:19 PM EDT Roya Álvarez MD IMG XR PROCEDURES Final Result * POCT glycosylated hemoglobin (Hb A1C) (09/19/2024 3:29 PM EDT) POCT Hemoglobin A1C 6.0 <5.7% Non-Diabet ic % [facility] Kit Lot Number [id number] [facility] Kit Expiration Date 07/15/26 [facility] Blood Venous blood specimen / Unknown 09/19/2024 3:29 PM EDT us Delicia Miner CALL CENTER ASSOCIATE POINT OF CARE TEST ENTER/ED IT ORDERABLES Final Result [facility] [address] [place] [address] from Last 3 Months Additional Health Concerns Active Problems Noted Date Diagnosed Date Autogenerated Problem 11/25/[address] [place] [id number] AETNA [facility] MEDICAID Care Teams Business Education Professor Relationship Specialty Start Date End Date Mohit Chávez DO [address] [place] [id number] PCP - General 06/06/24
--- OUTSIDE RECORDS SUMMARY | 2024-12-19 08:01 | XMS_ITS | Encounter Summary ---
[facility] Address [address] [place] [address] Care Team Providers Care Overnight Caregiver Name Role Phone Mohit Chávez DO Primary Care Provider [phone] Reason for Visit * Reason Comments Med Refill Encounter Details Date Type Department Care Team (Late st Contact Info) Description 11/17/2024 Refill [facility] [address] [place] [address] Mohit Chávez DO [address] [place] [address] Primary hypertension Social History Tobacco Use Types [...] Telephone Encounter - Coco Krishnan MA - 11/17/2024 12:56 PM EDT Rx Refill Note Requested Prescriptions Pending Prescriptions Disp Refills lisinopril (PRINIVIL,ZESTRIL) 40 MG tablet [Pharmacy Med Name: LISINOPRIL 40 MG TABLET] 90 tablet 1 Sig: TAKE 1 TABLET BY MOUTH ONCE DAILY chlorthalidone (HYGROTON) 25 MG tablet [Pharmacy Med Name: CHLORTHALIDONE 25 MG TABLET] 90 tablet 0 Sig: TAKE 0.5-1 TABLETS BY MOUTH DAILY. Last office visit with prescribing clinician: 11/01/2024 Last telemedicine visit with prescribing clinician: Visit date not found Next office visit with prescribing clinician: 05/01/2025 Would you like a call back once the refill request has been completed: [] Yes [] No If the office needs to give you a call back, can they leave a voicemail: [] Yes [] No Coco Krishnan MA 11/17/24, 12:56 EDT documented in this encounter Plan of Treatment Upcoming Encounters Date Type Department Care Team (Late st Contact Info) Description 05/01/2025 2:00 PM EDT Office Visit [facility] [address] [place] [address] Mohit Chávez DO [address] [place] [address] documented as of this encounter Visit Diagnoses Diagnosis Primary hypertension Unspecified essential hypertension documented in this encounter Care Teams Overnight Caregiver Relationship Specialty Start Date End Date Mohit Chávez DO [address] [place] [address] PCP - General Family Medicine 03/08/21 documented as of this encounter
--- OUTSIDE RECORDS SUMMARY | 2024-12-19 08:01 | XMS_ITS | Referral Summary ---
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
--- OUTSIDE RECORDS SUMMARY | 2024-12-19 08:01 | XMS_ITS | Clinical Summary ---
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
--- OUTSIDE RECORDS SUMMARY | 2024-12-19 08:01 | XMS_ITS | Encounter Summary ---
Author Organization [facility] Address [address] [place] [id number] Care Team Providers Care Websphere Commerce Consultant Name Role Phone Mohit Chávez DO Primary Care Provider [phone] Reason for Visit * Reason Comments Med Refill Encounter Details Date Type Department Care Team (Late st Contact Info) Description 11/26/2024 Refill [facility] [address] [place] [address] Mohit Chávez DO [address] [place] [address] Social History Tobacco Use Types Packs/Day Years [...] Description 05/01/2025 2:00 PM EDT Office Visit [facility] [address] [place] [address] Mohit Chávez DO [address] [place] [address] documented as of this encounter Visit Diagnoses Not on filedocumented in this encounter Care Teams Websphere Commerce Consultant Relationship Specialty Start Date End Date Mohit Chávez DO [address] [place] [address] PCP - General Family Medicine 03/08/21 documented as of this encounter
--- OUTSIDE RECORDS SUMMARY | 2024-12-19 08:01 | XMS_ITS | Encounter Summary ---
Author Organization [facility] Address [address] [place] [address] Care Team Providers Care Press Assistant And Feeder Name Role Phone Mohit Chávez DO Primary Care Provider [phone] Encounter Details Date Type Department Care Team (Latest Contact Info) Description 11/01/2024 Travel Social History Tobacco Use Types Packs/Day [...] Description 05/01/2025 2:00 PM EDT Office Visit [facility] [address] [place] [address] Mohit Chávez DO [address] [place] [address] documented as of this encounter Visit Diagnoses Not on filedocumented in this encounter Care Teams Press Assistant And Feeder Relationship Specialty Start Date End Date Mohit Chávez DO [address] [place] [address] PCP - General Family Medicine 03/08/21 documented as of this encounter
--- OUTSIDE RECORDS SUMMARY | 2024-12-19 08:01 | XMS_ITS | Encounter Summary ---
Author Organization [facility] Address [address] [place] [id number] Care Team Providers Care Salesperson Burial Plots Name Role Phone Mohit Alves DO Primary Care Provider [phone] Reason for Visit * Reason Onset Date Comments RSV IMMUNIZATION 11/18/2024 Encounter Details Date Type Department Care Team (Late st Contact Info) Description 11/18/2024 Telephone [facility] [address] [place] [address] Mohit Alves DO [address] [place] [address] RSV IMMUNIZATION Social History Tobacco Use Types Packs/Day Years [...] encounter Miscellaneous Notes * Telephone Encounter - German Mejia MA - 11/30/2024 9:54 AM EDT Images from the original note were not included. Cindy Coleman [address] Clinical Pool (Selected Message) BR 11/29/24 12:34 PM RSV is typically for age 65+. We don't give the RSV shot, he'd have to check with his pharmacy to see if he'd even be eligible. Patient informed. * Telephone Encounter - Liliam Martinez RegSched Rep - 11/18/2024 11:57 AM EDT Caller: Arun Ramon Relationship: Self Best call back number: [phone] What is the best time to reach you: ANY TIME Who are you requesting to speak with (clinical staff, provider, specific staff member): DR ALVES ORNURSE Do you know the name of the person who called: SELF What was the call regarding: PATIENT CALLED TO SEE IF HE NEEDS THE RSV SHOT AND WHAT IS IT? PLEASE ADVISE Is it okay if the provider responds through MyChart: YES documented in this encounter Plan of Treatment Upcoming Encounters Date Type Department Care Team (Late st Contact Info) Description 05/01/2025 2:00 PM EDT Office Visit [facility] [address] [place] [address] Mohit Alves DO [address] [place] [address] documented as of this encounter Visit Diagnoses Not on filedocumented in this encounter Care Teams Salesperson Burial Plots Relationship Specialty Start Date End Date Mohit Alves DO [address] [place] [address] PCP - General Family Medicine 03/08/21 documented as of this encounter
--- OUTSIDE RECORDS SUMMARY | 2024-12-19 08:01 | XMS_ITS | Encounter Summary ---
Author Organization [facility] Address [address] [place] [id number] Care Team Providers Care Pricer Bagger Name Role Phone Mohit Chávez DO Primary Care Provider [phone] Reason for Visit * Reason Comments Med Refill Encounter Details Date Type Department Care Team (Late st Contact Info) Description 11/14/2024 Refill [facility] [address] [place] [address] Mohit Chávez DO [address] [place] [address] Social History Tobacco Use Types Packs/Day Years [...] Telephone Encounter - Sarah Chun MA - 11/14/2024 12:47 PM EDT Rx Refill Note Requested Prescriptions Pending Prescriptions Disp Refills Xarelto 20 MG tablet [Pharmacy Med Name: XARELTO 20 MG TABLET] 30 tablet 1 Sig: TAKE 1 TABLET BY MOUTH EVERY [...] [] Yes [] No Sarah Chun MA 11/14/24, 12:48 EDT documented in this encounter Plan of Treatment Upcoming Encounters Date Type Department Care Team (Late st Contact Info) Description 05/01/2025 2:00 PM EDT Office Visit [facility] [address] [facility] [place] [address] Mohit Chávez DO [address] [facility] [place] [address] documented as of this encounter Visit Diagnoses Not on filedocumented in this encounter Care Teams Pricer Bagger Relationship Specialty Start Date End Date Mohit Chávez DO [address] [place], [place] [address] PCP - General Family Medicine 03/08/21 documented as of this encounter
--- OUTSIDE RECORDS SUMMARY | 2024-12-19 08:01 | XMS_ITS | Encounter Summary ---
Author Organization [facility] Address [address] [place] [phone] Care Team Providers Care Hand Roller Name Role Phone Mohit Chávez DO Primary Care Provider [phone] Reason for Visit * Reason Comments Med Refill Encounter Details Date Type Department Care Team (Late st Contact Info) Description 10/31/2024 Refill [facility] [address] [place] [address] Mohit Chávez DO [address] [place] [address] Primary hypertension Social History Tobacco Use Types [...] Telephone Encounter - Coco Krishnan MA - 10/31/2024 2:05 PM EDT Rx Refill Note Requested Prescriptions Pending Prescriptions Disp Refills rosuvastatin (CRESTOR) 10 MG tablet [Pharmacy Med Name: ROSUVASTATIN CALCIUM 10 MG TAB] 90 tablet 1 Sig: TAKE 1 TABLET BY MOUTH ONCE DAILY amLODIPine (NORVASC) 5 MG tablet [Pharmacy Med Name: AMLODIPINE BESYLATE 5 MG TAB] 90 tablet 0 Sig: TAKE 1 TABLET BY MOUTH EVERY [...] [] Yes [] No Coco Krishnan MA 10/31/24, 14:05 EDT documented in this encounter Plan of Treatment Upcoming Encounters Date Type Department Care Team (Late st Contact Info) Description 05/01/2025 2:00 PM EDT Office Visit [facility] [address] [place] [address] Mohit Chávez DO [address] [place] [address] documented as of this encounter Visit Diagnoses Diagnosis Primary hypertension Unspecified essential hypertension documented in this encounter Care Teams Hand Roller Relationship Specialty Start Date End Date Mohit Chávez DO [address] [place], [place] [address] PCP - General Family Medicine 03/08/21 documented as of this encounter
--- OUTSIDE RECORDS SUMMARY | 2024-12-19 08:01 | XMS_ITS | Clinical Summary ---
Author Organization [facility] Address [address] [place] [address] Phone Care Team Providers Care Table Games Shift Manager Name Role Phone Juanpablo Cortes OD Unavailable [phone] Allergies No known active allergies Medications BETA [...] ORAL Take by mouth. Active Green Tea Imbery Extract (GREEN TEA) Oral Capsule Take by [...] MINI PEN NEEDLE 31 [facility] x 3/16 [facility] USE with injections FOUR TIMES [...] 60 mL 2 09/05/19 Active Blood-Glucose Meter [facility] [place] MiscIndications:Ty pe 2 diabetes mellitus with hyperlipidemia (HCC) 1 Each by [facility] [place].(Non-Drug; Combo Route) route. [place] Ultra 2 meter. Use to check blood sugars twice daily. E11.9 Active sertraline (ZOLOFT) 25 mg Oral TabletIndications: Depression, unspecified depression type Take 1 Tab by mouth daily. 30 Tab 5 09/11/19 Active olopatadine (PATADAY) 0.2 % Opht DropsIndications:A llergic conjunctivitis, bilateral Place 1 Drop into both eyes daily. 5 mL 5 09/11/19 Active Blood-Glucose Meter [facility] [place] MiscIndications:De pression, unspecified depression type One Touch Verio Reflect. Use to check blood sugars twice a day. e11.9 1 Each 09/11/19 21 Active Blood Sugar Diagnostic [facility] [place] StripIndications:D epression, unspecified depression [...] FIT 2005 Sigmoidoscopy 2005 Virtual Colonography 2005 RSV or 60+ (1 - Risk 50-74 years 1-dose series) 2010 Pneumococcal Vaccine 50+ (2 of 2 - PCV) 04/17/2019 04/16/2018 Hemoglobin A1c 09/05/2021 03/08/2021, 08/17, 11/26/2019, Additional [...] 5.6 % 09/10/2020 8:52 PM EDT [facility] [employer], [address] [place] [address]. Avg Glucose 214 mg/dL 09/10/2020 8:52 PM EDT [facility] [employer] Blood Venipuncture / Unknown 09/10/2020 1:54 PM EDT 09/10/2020 1:54 PM EDT Narrative [facility] - 09/10/2020 8:52 PM EDT REFERENCE RANGE: Normal: 4.0-5.6% Pre-diabetes: 5.7-6.4% Provisional diagnosis of diabetes: >6.4% Hgb F>10% and anything which shortens red cell survival, such as hemolytic anemia, or unstable hemoglobin variants such as HbSS, HbSC, or HbCC, will lower the HbA1c value associated with a given level of glycemic control. us Sammy Biggs [employer] CHEMISTRY ORDERABLES Final R esult [facility] [employer] [address] , [place] [address] * (ABNORMAL) LIPID SCREEN (09/10/2020 1:54 PM EDT) Cholesterol 172 <200 mg/dL 09/10/2020 8:13 PM EDT [employer] Comment: < 200 Desirable 200 - 239 Borderline High >= 240 High Triglyceride 316(H) <150 mg/dL 09/10/2020 8:13 PM EDT [employer] Comment: < 150 Normal 150 - 199 Borderline High 200 - 499 High >= 500 Very High HDL 30(L) >=40 mg/dL 09/10/2020 8:13 PM EDT [employer] Comment: > 60 Optimal 40 - 60 Acceptable < 40 Low LDL Calculated 79 <100 mg/dL 09/10/2020 8:13 PM EDT [employer] Comment: < 100 Optimal 100 - 129 Near or above optimal 130 - 159 Borderline High 160 - 189 High >= 190 Very High Non-HDL-C Calculated 142(H) <=129 mg/dL 09/10/2020 8:13 PM EDT [employer] Comment: <130 Desirable 130-159 Above Desirable 160-189 Borderline High 190-219 High >= 220 Very High Fasting Specimen? No None 07/26/2 021 8:13 PM EDT [facility] Blood Venipuncture / Unknown 09/10/2020 1:54 PM EDT 09/10/2020 1:54 PM EDT us Sammy Biggs [employer] CHEMISTRY ORDERABLES Final R esult [facility] [address], [place] [address] [facility] [address] [place] [address] * (ABNORMAL) COMPREHENSIVE METABOLIC PANEL (09/10/2020 1:54 [...] mg/dL 09/10/2020 8:13 PM EDT [facility] ALT 29 <=41 U/L 09/10/2020 8:13 PM EDT [facility] AST 25 <=40 U/L 09/10/2020 8:13 PM EDT [facility] Alk Phos 68 40 - 129 U/L 09/10/2020 8:13 PM EDT [facility] GFR Afr Am 93 >=60 mL/min/1.7 3 m2 09/10/2020 8:13 PM EDT [facility] GFR Non Afr Am 80 >=60 mL/min/1.7 3 m2 09/10/2020 8:13 PM EDT [facility] Comment: This estimated GFR was [...] 09/10/2020 1:54 PM EDT us Sammy Biggs APRN CHEMISTRY ORDERABLES Final R esult [address] , [place] [address] [facility] [address] [place] [address] * HEPATITIS C ANTIBODY - SCREENING (09/05/2016 9:11 AM EDT) Hep C Ab Negative Negative [facility] Blood specimen (specimen) 09/05/2016 9:11 AM EDT 09/05/2016 3:29 PM EDT Sammy A Biggs [employer]ING [employer]W HEMATOLOGY ORDERABLES Final Result [facility] [address] [place] [address] from Last 3 Months or Most Recently Relevant to Health Maintenance [facility] [employer] * Guarantor: Arun Ramon Account Type Relation to Patient Date of Phone Billing Address [place] Personal Family Self Care Teams Table Games Shift Manager Relationship Specialty Start Date End Date Juanpablo Cortes OD [address] [place] [address] Consulting Physician Rugby [employer] Footballer 09/24/20
--- NOTE | 2024-12-19 08:15 | MR_ITS ---
FINAL REPORT TECHNIQUE: Multiplanar and multisequence imaging of the right shoulder was obtained without contrast. CLINICAL HISTORY: right shoulder pain, limited rom, pain when reaching foward and back, fall after dogs pulled on a leash he was holding FINDINGS: Bones and joints: There is no acute fracture, edema, or pathologic marrow replacement. Acromioclavicular joint degenerative disease is present and there is osteophytosis which narrows the supraspinatus outlet. Rotator cuff: There is supraspinatus tendinopathy. There is a full-thickness tear of the anterior infraspinatus tendon. More posterior fibers are intact. No subscapularis tendon tear. There is no fatty atrophy of the rotator cuff muscles. There is edema in the infraspinatus musculature. Labrum: The biceps labral complex is intact. There is a tear of the posterior inferior labrum. Remaining labrum is intact. There is edema in the inferior glenohumeral ligament and the axillary recess concerning for adhesive capsulitis. There is biceps tendinosis. Other: There is no significant joint effusion. Remaining soft tissues are within normal limits. IMPRESSION: Full-thickness anterior infraspinatus tear with rotator cuff tendinopathy. Posterior labral tear. Findings concerning for adhesive capsulitis. Degenerative joint disease. Reviewed, Interpreted and Dictated by Marisela Higgins MD Transcribed by Seema Tran Authenticated and . [facility]
== END 2024-12-19 23:59 | disposition home or self-care (01) ==
LOC: RAD 07:57
PROVIDERS: PCP Family Medicine; Visit Provider Physician Assistant Surgical
DX: M75.121 Complete rotator cuff tear or rupture of right shoulder, not specified as traumatic (principal); S43.491A Other sprain of right shoulder joint, initial encounter; M19.011 Primary osteoarthritis, right shoulder; M25.811 Other specified joint disorders, right shoulder; M24.811 Other specific joint derangements of right shoulder, not elsewhere classified; W19.XXXA Unspecified fall, initial encounter
CPT/HCPCS: 73221

== ENCOUNTER 2025-01-09 09:57 | Outpatient (RCR) | payer OTHER, SELFPAY | END 2025-01-09 23:59 | disposition home or self-care (01) | LOC: OT 09:57 | PROVIDERS: PCP Family Medicine; Visit Provider Physician Assistant Surgical | DX: S46.009D Unspecified injury of muscle(s) and tendon(s) of the rotator cuff of unspecified shoulder, subsequent encounter (principal); M24.811 Other specific joint derangements of right shoulder, not elsewhere classified; M25.811 Other specified joint disorders, right shoulder; X58.XXXD Exposure to other specified factors, subsequent encounter | CPT/HCPCS: 97032; 97530 ==

== ENCOUNTER 2025-02-01 15:00 | Outpatient (RCR) | payer OTHER, SELFPAY | END 2025-02-01 23:59 | disposition home or self-care (01) | LOC: OT 15:00 | PROVIDERS: PCP Family Medicine; Visit Provider Physician Assistant Surgical | DX: M24.811 Other specific joint derangements of right shoulder, not elsewhere classified (principal); M25.811 Other specified joint disorders, right shoulder; S46.009A Unspecified injury of muscle(s) and tendon(s) of the rotator cuff of unspecified shoulder, initial encounter; X58.XXXA Exposure to other specified factors, initial encounter | CPT/HCPCS: 97014; 97032; 97110; 97140; 97530; G0283 ==